=== PATIENT | male | born 1960 | race Caucasian/White ===

== ENCOUNTER 2024-05-17 22:29 | Inpatient (IN) | payer OTHER, SELFPAY ==
[2024-05-17] VITALS (11 sets, daily range): BP systolic 123–166; BP diastolic 73–101; BMI 33.3
[2024-05-17 19:14] LABS: % Basophils 0.4 % (0-2); % Eosinophils 0.9 % (0-6); % Monocytes 11.6 % (1.7-9.3); % Neutrophils 56.1 % (42.2-75.2); Absolute Eosinophils 0.1 10^3/uL (0-0.7); Absolute Lymphocytes 1.8 10^3/uL (1.2-3.4); Absolute Monocytes 0.7 10^3/uL (0.1-0.6); Absolute Neutrophils 3.2 10^3/uL (1.4-6.5); Hematocrit 43.6 % (39.0-52.0); Mean Corp Hgb Conc. 36.7 g/dL (33.0-37.0); Mean Corpuscular Hgb 30.7 pg (27.0-31.0); Mean Corpuscular Volume 83.5 fL (80.0-94.0); Mean Platelet Volume 10.7 fL (7.4-10.4); Nucleated Red Blood Cells % 0 % (-); Platelet Count 163 10^3/uL (130-400); Red Blood Cell Count 5.22 10^6/uL (4.70-6.10); White Blood Cell Count 5.7 10^3/uL (4.8-10.8)
[2024-05-17 19:30] LABS: ALT (SGPT) 29 U/L (0-50); AST (SGOT) 36 U/L (17-59); Albumin 4.6 g/dl (3.5-5.0); Alkaline Phosphatase 67 U/L (38-126); Blood Urea Nitrogen 25 mg/dl (9-20); Calcium 9.3 mg/dl (8.4-10.2); Carbon Dioxide 26 mmol/L (22-30); Chloride 102 mmol/L (98-107); Estimated Creatinine Clearance 96 ml/min; Glucose 110 mg/dl (70-99); Potassium 4.3 mmol/L (3.5-5.1); Sodium 135 mmol/L (135-145); Total Protein 7.2 g/dl (6.3-8.2); eGFR > 60.00
[2024-05-17 19:39] LABS: Troponin I 0.013 ng/ml
--- NOTE | 2024-05-17 19:48 | ED.GENMED ---
History of Present Illness
General
Chief Complaint: Cardiac Symptoms
Source: patient
Exam Limitations: none
Time Seen by Provider: 05/17/24 19:39
Nursing documentation reviewed up to this point in time: agreed with
History of Present Illness
History of Present Illness:
Patient is a 63-year-old male past medical history of CVA on baby aspirin, hypertension hyperlipidemia presents to the ER for evaluation. Patient had a stress test at 7 AM and was called at home by cardiology office stating he should come to the
ER. He reports he did have chest pressure today while the stress test was occurring however has no symptoms now.
Patient tells me he had the stress test ordered by his family doctor because he was having reflux.
Past History
Past History
ED Past Medical History: CVA (stroke right caudate February 2022), HTN, Hypercholesterolemia, Other (TIA 2020) and Other (Chronic low back pain, BPH, lumbar epidural steroid injections)
ED Past Surgical History: Orthopedic (right ankle, left elbow repairs)
Social History
Tobacco: Smoker (2 packs/day)
Alcohol: Occasional (Rare alcohol use)
Drug: Marijuana
Personal:
Living: with family
Employment: Employed
Family History
Family History: Other (mother with a stroke)
Review of Systems
Review of Systems
Allergies reviewed?: Yes
All Other Systems: ROS reviewed and negative except as documented in HPI and ROS
Constitutional: Reports no symptoms
Respiratory: Reports no symptoms
Cardiac: Reports no symptoms
ABD/GI: Reports no symptoms
Musculoskeletal: Reports no symptoms
Skin: Reports no symptoms
Neurological: Reports no symptoms
Hematologic/Lymphatic: Reports no symptoms
Psychiatric: Reports no symptoms
Phy Exam
General Physical Exam
General Presentation: no apparent distress
General age: appears stated age
General Skin: warm and dry
General Habitus: normal
General Mental: alert
General Hydration: appears well hydrated
Cardiovascular Exam
Cardiovascular Exam: regular rate/rhythm, no murmur and normal peripheral pulses
Pulmonary Exam
Pulmonary Exam: lungs clear and no respiratory distress
Neurological Exam
Neurological Exam: alert and oriented x3
Musculoskeletal Exam
Musculoskeletal Exam: full ROM
Skin Exam
Skin Exam: normal color and warm/dry
Psychiatric Exam
Psychiatric Exam: normal mood/affect
Course
Orders/Labs/Results
Orders:
Orders
05/17/24 18:32
EKG [Electrocardiogram (*1)] Urgent
Reason for Study: Chest Pain
EKG- Treatment ONCE
05/17/24 19:08
Complete Blood Count/With Diff Urgent
Comprehensive Metabolic Panel Urgent
Troponin I Urgent
05/17/24 20:11
Aspirin Chewable [Low Strength Aspirin] 324 mg PO NOW STA
05/17/24 20:12
Pantoprazole [Protonix IV] 40 mg IV NOW STA
Abnormal Lab Results
05/17/24
19:08
MPV 10.7 H fL
(7.4-10.4)
Absolute Monos (auto) 0.7 H 10^3/uL
(0.1-0.6)
Monocytes % 11.6 H %
(1.7-9.3)
BUN 25 H mg/dl
(9-20)
Glucose 110 H mg/dl
(70-99)
05/17/24 19:08
05/17/24 19:08
Vital Signs
Initial and Last Documented VS:
Initial Vital Signs
Temp Pulse Resp BP Pulse Ox
98.8 F 103 18 150/83 96
05/17/24 18:31 05/17/24 18:31 05/17/24 18:31 05/17/24 18:31 05/17/24 18:31
Last Documented Vital Signs
Temp Pulse Resp BP Pulse Ox
98.8 F 103 18 150/83 96
05/17/24 18:31 05/17/24 18:31 05/17/24 18:31 05/17/24 18:31 05/17/24 18:31
MDM/Problems Addressed
Differential Diagnosis Includes:
not limited to [place]
MDM/Problems Addressed:
Patient is a 63-year-old male with history of stroke hyperlipidemia smoker sent by cardiology office for failed stress test this morning. Patient was initially ordered stress test by family doctor for patient's complaint of reflux. Patient noted
that he did have chest pressure during the stress test but denies presently. He does have reflux issues. He presents in no acute distress negative cardiac troponin. Patient did not take his normal baby aspirin today. I spoke with cardiology DrMatthew
Garth who does recommend full baby aspirin and also to treat reflux. Will plan for cath tomorrow as stress test showed likely multivessel disease.
Chronic conditions affecting care:
Stroke smoker hyperlipidemia high blood pressure
*Pulse Oximetry
Patient hypoxic: no
*EKG
Interpreted by ED Provider?: Yes
Comparison EKG: no changes
Heart Rate: 88
Rate: normal
Rhythm: sinus
Ischemia: non-specific ST changes
*Critical Care Note
Total Time (30-74mins, 75-104mins- exclusive of procedures): Not Applicable
Patient Management
Discussion with other providers: Grain Trimmer (Dr Liang )
ED Attending Note
-
Portions of this chart may have been created with voice recognition software.� Occasional wrong word or��sound alike� substitutions may have occurred due to the inherent limitations of voice recognition software.
Discharge Plan
Departure
Patient Disposition: Admit
Date of Disposition: 05/17/24
Time of Disposition: 20:44
Admit to: Telemetry
Admit to doctor: hospitliast
Presentation/result/management discussed w/ accepting MD/DO: Hospitalist
Patient with high blood pressure during this ER visit?: Yes
Condition: Fair
Covid-19: Not Applicable
Discharge Problem:
Chest pain, Abnormal cardiovascular stress test
Prescriptions:
No Action
atorvastatin 80 MG tablet
80 mg PO DAILY
lisinopril 20 MG tablet
30 mg PO DAILY
aspirin 81 MG tablet,chewable
81 mg PO DAILY 30 Days Qty: 30 0RF
naproxen sodium [Aleve] 220 MG tablet
220 mg PO Q12H PRN (Reason: pain)
ezetimibe [Zetia] 10 MG tablet
10 mg PO DAILY
Referrals:
Fredo Durham MD [Family Provider] -
Interventions
Interventions:
*General Assessment Last Done: 05/17/24 19:09
*Neglect/Abuse Screening Last Done: 05/17/24 19:09
ED- Pulmonary Assessment Last Done: 05/17/24 19:09
ED- Cardiac Assessment Last Done: 05/17/24 19:09
Discharge Date and Time
Print Language: SRI LANKAN
[2024-05-17] MEDS: LOW STRENGTH ASPIRIN 324 MG PO (20:43)
[2024-05-17] MEDS: PROTONIX IV 40 MG IV (20:43)
--- NOTE | 2024-05-17 20:49 | HPS.HSE ---
Family Physician
-
Family Physician: Fredo Durham
Chief Complaint
-
chest pain abn stress test
History of Present Illness
63-year-old male who has been having ongoing chest pain for several weeks. He reports yesterday feeling overall sense of nausea, fatigue with cramping in his legs, arms, abdomen and a decreased appetite. 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 He describes a sensation of heartburn feeling like he has to belch along with burning sensation when this occurs he takes 2 Prilosec and within 15 minutes he
states it improves somewhat. He had a stress test at 7 AM and was called by cardiology stating it was abnormal and he should come to the ER. He reports he has been having ongoing reflux symptoms. He has past medical history of CVA 05/27/2020 on
current aspirin, HTN, HLD, active smoker.
Medical History
Past Medical History
Past Medical History: Reports Other
Additional Past Medical History:
TIA 05/27/2020 Jumana Green February 2022 on current aspirin
HTN
HLD
active smoker
Marijuana use daily
Obesity
-Back pain with peripheral neuropathy
Past Surgical History: Reports Other
Additional Past Surgical History:
tennis elbow repair bilateral
Right ankle fracture repair
Social History
Tobacco: Smoker (1.5 to 2 pack a day x 48 years)
Alcohol: Occasional (Once every 6 months)
Drug: Marijuana (Smokes and vapes)
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
Family History
Family History: Other (Mother CVA age 67, father lung CA age 67 patient has 4 brothers unsure any medical problems 2 sisters no medical problems)
Allergies / Home Medications
Allergies reflects when Allergies were last updated in [facility].
Home Medications with original date entered in [facility]
Allergy/Medication List:
Allergies
Allergy/AdvReac Type Severity Reaction Status Date / Time
No Known Allergies Allergy Verified 03/23/22 07:38
Home Medications
lisinopril 20 mg tablet 20 mg PO DAILY Blood pressure 06/05/20
aspirin 81 mg chewable tablet 81 mg PO DAILY 30 days #30 tabs 03/01/22
ezetimibe 10 mg tablet (Zetia) 10 mg PO DAILY 03/23/22
Prilosec OTC 40 mg PO DAILY PRN acid reflux 05/17/24
ciprofloxacin 2 drp RIGHT EYE QID 05/17/24
metoprolol succinate 25 mg tablet,extended release 24 hr 25 mg PO DAILY 05/17/24
pregabalin 200 mg capsule 200 mg PO DAILY 05/17/24
rosuvastatin 40 mg tablet 40 mg PO DAILY 05/17/24
tamsulosin 0.4 mg capsule (Flomax) 0.4 mg PO DAILY 05/17/24
Review of Systems
-
History Source: Patient
A 12 point ROS was completed and negative except as noted: Yes
Constitutional: Denies Fever or Chills
EENT: Denies Tearing or Sore Throat
Respiratory: Reports Other; Denies Cough or Trouble Breathing
Cardiac: Reports Chest Pain (Reported epigastric burning midsternal); Denies Diaphoresis, Palpitations or Syncope
Abdomen/GI: Reports Nausea and Other (Decreased appetite); Denies Abdominal Pain, Vomiting, Diarrhea or Constipated
: Denies Dysuria, Frequency, Flank Pain, Incontinence or Urgency
Musculoskeletal: Reports Other (Cramps to abdomen, arms, legs intermittently); Denies Joint Pain
Skin: Denies Itching or Rash
Neurological: Reports Dizzy (Occasionally when lying and looking up) and Weakness (Generalized); Denies Headache
Endocrine: Reports No Symptoms
Hematologic/Lymphatic: Reports No Symptoms
Psych: Reports Calm
Physical Exam
Vital Signs
Vital Signs
Temp Pulse Resp BP Pulse Ox
98.8 F 103 18 150/83 96
05/17/24 18:31 05/17/24 18:31 05/17/24 18:31 05/17/24 18:31 05/17/24 18:31
Physical Exam
General: Pain (Epigastric burning and sensation), Obese and Other (Generalized fatigue); No Fever or Chills
HEENT: NormoCephalic, Anicteric, PERRLA, [place] Conjunctivae, No Ptosis and Other (Right eyes slightly red status post rust removal yesterday 05/16/2024 at urgent care)
Respiratory: Clear; No Wheezes, Rales or Rhonchi
Cardiac: S1/S2 and Regular Rhythm; No Murmur, Rub, Gallop, Peripheral Edema or JVD
Breast: Deferred by me
GI: Soft, Non Tender, Non Distended, Normal Bowel Sounds and No Hepatosplenomegaly
Genito-urinary: Deferred by me
Musculoskeletal: No Clubbing, No Cyanosis and No Edema
Skin: Warm and Dry; No Rash
Neuro: AO x 3, No Motor Deficits, Nonfocal/grossly intact, Cranial Nerves Intact and No Sensory Deficits; No DTR's Intact & Symmetrical, Slurred Speech, Facial Droop or Tremors
Psych: Calm
Laboratory Results
-
05/17/24 19:08
05/17/24 19:08
Laboratory Results
Total Bilirubin 1.0 mg/dl (0.2-1.3) 05/17/24 19:08
AST 36 U/L (17-59) 05/17/24 19:08
ALT 29 U/L (0-50) 05/17/24 19:08
Alkaline Phosphatase 67 U/L (38-126) 05/17/24 19:08
Troponin I 0.013 ng/ml 05/17/24 19:08
Impression/Plan
-
Impression/plan:
Admit to IVU
#Abnormal stress test / Unstable angina
-N.p.o. after midnight
-For cath in a.m.
-Consult CBC cardiology Dr. Liang aware
-Aspirin 325 mg given in ER ,give aspirin 81 mg daily
-Continue Crestor 40 mg daily
-Continue metoprolol succinate 25 mg daily
-IV Protonix given in ER
-Given sublingual nitro with complete relief of chest pain
-Will start IV nitro drip and IV heparin drip per Dr. Liang
Verbal stress test report from today 05/17/2024 very abnormal stress test. Significant area of anterior ischemia and inferior defect likely has significant multivessel disease
EKG: NSR 80 bpm no change from February 28, 2022
2D echo 04/14/2022: EF 60 to 65%, basal inferior wall akinesis. Mild MR, trileaflet aortic valve mild aortic stenosis peak mean gradient 43-19 mmHg, trace TR
#Muscle cramping likely 2/2 to heat exposure daily poss electrolyte abn/vs mild rhabdo
-check mg level
uds
-Check CPK
#Nicotine abuse
47-year 1 and half to 2 pack a day
-Advised smoking cessation
-Nicotine patch 21 mg
#Marijuana use smokes/vapes daily
-Advised cessation
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
-Continue Cipro 2 drops 4 times daily to the eye for 5 days
#GERD
Add daily Protonix in place of Prilosec
#HTN�benign
BP 150/83
-Continue lisinopril 30 mg daily
#HLD
-Check lipid profile
-Continue Zetia 10 mg daily, atorvastatin 80 mg at bedtime
#TIA 05/2020, February 2022
-Continue AG SERVICE MANAGER aspirin, statin
MRA of neck high-grade stenosis of the right vertebral artery 2 cm proximal to the basilar artery
Brain MRI February 2022 no evidence of intracranial aneurysm or narrowing
#Chronic back pain with peripheral neuropathy
-Continue Lyrica 200 mg daily
#Obesity due to excess calorie consumption�BMI 33.2
-Affects all aspects of care
-Weight loss recommended
-Low-fat diet
#BPH
-Continue Flomax 0.4 mg daily
DVT prophylaxis
IV heparin drip
Full code
--- NOTE | 2024-05-17 21:41 | W.PN.UPDATE ---
Update Note
Progress Note Update
This note serves as an addendum to the H&P by curing press operator SHERIE Emilia MINOR
HPI
63M current smoker, vapes, daily THC use HX CVA, suspect ASCVD, HLD, HTN was sent in by [facility] card for abnormal stress test this AM.
He was advise to Card to go to ER. Stress test was indicated for ongoing chest pain.
Waxing and waning substernal lower CP - he attributed to indigestion
- no radiation
- relieved SSCP by SL NTG with reported complete resolution of CP
VS: BP 150/83, HR 105
PE: unremarkable
Data
Unremarkable CBC and CMP
NEG TPNI
EKG report
NORMAL SINUS RHYTHM
CANNOT RULE OUT INFERIOR INFARCT , AGE UNDETERMINED
ABNORMAL ECG
04/14/2022: TTE
EF 60 to 65%, basal inferior wall akinesis.
Mild MR
trileaflet aortic valve mild aortic stenosis peak mean gradient 43-19 mmHg, trace TR
ASSESSMENT & PLAN
CP attributed to GERD but USA/ ACS unless proven otherwise
Abnormal stress test
NEG TPNI
Hi risk for CAD ? obstructive
-initiatd heparin gtt and NTG gtt
- NPO and IVF
- For card cath in AM -For cath in a.m.
- cont.Aspirin 325 mg given in ER give aspirin 81 mg daily
- cont. atorvastatin 80 mg at bedtime, Zetia 10 mg daily
- CBC card consult
Benign HTN
BP 150/83
- on Lisinopril 30 mg daily
HLD
- lipid profile
- cont. Zetia 10 mg daily, atorvastatin 80 mg at bedtime
Reviewed VS:
DVT Px:
Code: Full code
IVU
[2024-05-17] MEDS: NITROSTAT (SUBLINGUAL) 0.4 MG SL (22:02)
[2024-05-17 22:15] LABS: Magnesium 1.8 mg/dl (1.6-2.3)
[2024-05-17 23:01] LABS: Creatine Phosphokinase 406 U/L (55-170)
[2024-05-17 23:14] LABS: Troponin I 0.017 ng/ml
[2024-05-17] MEDS: NITROGLYCERIN PREMIX 250 IV (23:38)
[2024-05-17] MEDS: NSS 1000 IV (23:41)
[2024-05-17] MEDS: NICODERM TRANSDERMAL 21 MG TRANSDERM (23:55)
[2024-05-18] VITALS (28 sets, daily range): BP systolic 88–165; BP diastolic 39–102; BMI 32.6
[2024-05-18] MEDS: HEPARIN 4000 UNITS IV (00:44)
[2024-05-18] MEDS: HEPARIN 25000 UNITS/250 ML IV (00:45)
[2024-05-18 01:13] LABS: Amphetamines Negative (Negative); Barbiturates Negative (Negative); Benzodiazepines Negative (Negative); Buprenorphine Negative (Negative); Cocaine Negative (Negative); Marijuana Positive (Negative); Methadone Negative (Negative); Methamphetamines Negative (Negative); Opiates Negative (Negative); Phencyclidine Negative (Negative); Tricyclic Antidepressants Negative (Negative)
--- NOTE | 2024-05-18 02:15 | PTCARENOTE ---
received pt from ED into room 2245. pt A&Ox4. ambulated from stretcher to bed w/o issue. SR on tele-monitor. lungs diminished b/l throughout on auscultation. pt NPO for CCL. heparin, nitro, and IVF infusing per orders. see worklist for complete
nursing assessment, interventions, VS, and I&Os.
[2024-05-18 06:39] LABS: APTT 54.7 Sec (23.4-35.0)
[2024-05-18 06:49] LABS: % Basophils 0.5 % (0-2); % Eosinophils 1.2 % (0-6); % Immature Granulocytes 0.2 % (0-0.5); % Lymphocytes 30.9 % (20.5-51.1); % Monocytes 10.3 % (1.7-9.3); % Neutrophils 56.9 % (42.2-75.2); Absolute Eosinophils 0.1 10^3/uL (0-0.7); Absolute Lymphocytes 1.8 10^3/uL (1.2-3.4); Absolute Monocytes 0.6 10^3/uL (0.1-0.6); Absolute Neutrophils 3.3 10^3/uL (1.4-6.5); Hematocrit 39.7 % (39.0-52.0); Hemoglobin 14.2 g/dL (13.0-18.0); Mean Corp Hgb Conc. 35.8 g/dL (33.0-37.0); Mean Corpuscular Hgb 30.5 pg (27.0-31.0); Mean Corpuscular Volume 85.2 fL (80.0-94.0); Mean Platelet Volume 10.6 fL (7.4-10.4); Nucleated Red Blood Cells % 0 % (-); Platelet Count 142 10^3/uL (130-400); Red Blood Cell Count 4.66 10^6/uL (4.70-6.10); White Blood Cell Count 5.7 10^3/uL (4.8-10.8)
[2024-05-18 06:54] LABS: Troponin I 0.015 ng/ml
--- NOTE | 2024-05-18 07:28 | W.PN.HOSP.TC ---
Today's Communication/Plan
-
NPO for cardiac cath
Assessment / Plan
Assessment / Plan
63M current smoker, vapes, daily THC use HX CVA, suspect ASCVD, HLD, HTN was sent in by [facility] card for abnormal stress test this AM.
He was advise to Card to go to ER. Stress test was indicated for ongoing chest pain.
04/14/2022: TTE
EF 60 to 65%, basal inferior wall akinesis.
Mild MR
trileaflet aortic valve mild aortic stenosis peak mean gradient 43-19 mmHg, trace TR
ASSESSMENT & PLAN
Chest Pain
GERD-like symptoms with some relief from Prilosec
Abnormal stress test
NEG TPNI
Hi risk for CAD ? obstructive
- admitted to IVU
- cont.Aspirin 325 mg given in ER give aspirin 81 mg daily
- cont. atorvastatin 80 mg at bedtime, Zetia 10 mg daily
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
- continue IV Heparin gtt
- NPO and IVF
- For card cath in AM
- CBC card consult
Benign HTN
BP 150/83
- on Lisinopril 30 mg daily
HLD
- lipid profile
- cont. Zetia 10 mg daily, atorvastatin 80 mg at bedtime
Reviewed VS:
DVT Px:
Code: Full code
IVU
Anticipated Discharge: 24 - 48 hours
Subjective/Interval History
-
Date of Service: May 18, 2024
currently chest pain free
pain happened with exertion and at rest
no new complaints this morning, woken from sleep
Objective Data
-
Labs:
Laboratory Results
05/17/24 05/17/24 05/18/24
19:08 23:30 06:13
WBC 5.7
Hgb 14.2
Hct 39.7
Plt Count 142
APTT 30.0 54.7 H
Sodium 135 Pending
Potassium 4.3 Pending
Chloride 102 Pending
Carbon Dioxide 26 Pending
BUN 25 H Pending
Creatinine 1.0 Pending
Glucose 110 H Pending
Calcium 9.3 Pending
Total Bilirubin 1.0 Pending
AST 36 Pending
ALT 29 Pending
Alkaline Phosphatase 67 Pending
05/18/24 05/18/24
07:45 12:45
WBC
Hgb
Hct
Plt Count
APTT Cancelled Pending
Sodium
Potassium
Chloride
Carbon Dioxide
BUN
Creatinine
Glucose
Calcium
Total Bilirubin
AST
ALT
Alkaline Phosphatase
Vital Signs:
Vital Signs
Temp Pulse Resp BP Pulse Ox
98.5 F 80 20 125/67 92
05/18/24 07:15 05/18/24 06:15 05/18/24 07:15 05/18/24 05:55 05/18/24 07:15
Review of Systems
-
History Source: Patient
All other systems: Reviewed and negative
Physical Exam
-
General: No Apparent Distress (awoken from sleep )
HEENT: PERRLA
Respiratory: Clear to Auscultation; Negative Wheezes
Cardiac: Regular Rhythm and S1/S2
Musculoskeletal: No Edema
Skin: Warm and Dry; Negative Rash
Neuro: Awake and Nonfocal/Grossly Intact
Psych: Calm
Data Reviewed
-
Diagnostic Radiology: Report Reviewed by me
Labs: Labs Reviewed by me
[2024-05-18 07:40] LABS: ALT (SGPT) 24 U/L (0-50); AST (SGOT) 31 U/L (17-59); Albumin 3.9 g/dl (3.5-5.0); Alkaline Phosphatase 62 U/L (38-126); Blood Urea Nitrogen 20 mg/dl (9-20); Calcium 8.7 mg/dl (8.4-10.2); Carbon Dioxide 24 mmol/L (22-30); Chloride 106 mmol/L (98-107); Estimated Creatinine Clearance > 125 ml/min; Glucose 111 mg/dl (70-99); HDL Cholesterol 48 mg/dl; LDL Cholesterol, Calculated 39 mg/dl; Potassium 4.1 mmol/L (3.5-5.1); Sodium 135 mmol/L (135-145); Total Bilirubin 0.9 mg/dl (0.2-1.3); Total Cholesterol 102 mg/dl (50-199); Total Protein 6.3 g/dl (6.3-8.2); Triglyceride 79 mg/dl (10-149); Very Low Density Lipoprotein 15 mg/dl (0-30); eGFR > 60.00
[2024-05-18] MEDS: PROTONIX 40 MG PO (08:04)
[2024-05-18] MEDS: CRESTOR 40 MG PO (08:05)
[2024-05-18] MEDS: FLOMAX 0.4 MG PO (08:05)
[2024-05-18] MEDS: LYRICA 200 MG PO (08:06)
[2024-05-18] MEDS: ZESTRIL 20 MG PO (08:06)
[2024-05-18] MEDS: ZETIA 10 MG PO (08:08)
[2024-05-18] MEDS: TOPROL XL 25 MG PO (08:09)
[2024-05-18] MEDS: LOW STRENGTH ASPIRIN 81 MG PO (08:10)
[2024-05-18] MEDS: NON-FORMULARY ITEM 2 UNIT RIGHT EYE (08:11)
--- NOTE | 2024-05-18 08:39 | CON.CAR ---
Addendum entered and electronically signed by Rupesh Platt MD 05/18/24 10:20:
Patient seen and examined in collaboration with WALLPAPER HANGER HELPER; agree with below.
-63-year-old male with medical history as outlined below, including mild aortic stenosis, peripheral vascular disease/carotid artery stenosis (severe CLAIRE and moderate LICA), previous CVA status-post ILR implantation, AAA (4.[address] in 2021),
obesity, and chronic continued cigarette use 1.5 PPD and daily marijuana vaping presenting with chest pain; found to have a significantly abnormal stress test yesterday, concerning for multivessel CAD (moderate to large anterior/anterolateral
reversible ischemia, fixed basal to distal inferior perfusion defect, visual transient ischemic dilatation (TID) with elevated TID score of 1.31.
-Cardiac catheterization will be arranged for today; continue heparin drip and nitroglycerin drip.
-Echocardiogram today to monitor for progressive aortic stenosis.
-NPO for procedure.
-Consult Vascular Surgery for PVD, carotid artery stenosis, and AAA.
-Patient was counseled at length today on the importance of smoking cessation.
Original Note:
Consultation
Consultation Request
Date/Time Consultation Requested: 05/17/24 9:15p
Date/Time Consultation Performed: 05/18/24 8:30a
Requesting Provider: ANGE [place]
Performing Provider: ANGE Underwood for Dr. Platt
Reason for Consultation: abnormal stress test
Medical History
-
Chief Complaint: chest pain
History of Present Illness:
Mr. Fay is a 63 yo male with HTN, HLD, PAD with AAA 4.[address] in 2021, b/l carotid artery disease, mild , mild MR, embolic CVA s/p [employer] ILR and current smoker 1.5 packs a day, who presents to the ER with exertional chest burning
symptoms for months. He had an outpatient stress test yesterday 05/17/24 that showed significant area of anterior ischemia and inferior defect, likely has significant multivessel disease. He is admitted to the hospitalist service and we are
consulted for abnormal stress test and exertional chest burning. Currently he is pain free on IV NTG and IV Heparin. Plan is for cardiac cath today.
Past Medical History
Past Medical History: Other (as above)
Past Surgical History: Cardiac ([employer] ILR)
Social History
Tobacco: Smoker (1.5 packs per day for 40 years)
Alcohol: None
Living: Alone
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
Family History
Family History: Reviewed & Not Pertinent
Allergies / Home Medications
Allergy/AdvReac Type Severity Reaction Status Date / Time
No Known Allergies Allergy Verified 03/23/22 07:38
�Medication �Instructions �Recorded �Confirmed �Type
lisinopril 20 mg tablet 20 mg PO DAILY Blood pressure 06/05/20 05/17/24 History
aspirin 81 mg chewable tablet 81 mg PO DAILY 30 days #30 tabs 03/01/22 05/17/24 Rx
ezetimibe 10 mg tablet (Zetia) 10 mg PO DAILY 03/23/22 05/17/24 History
Prilosec OTC 40 mg PO DAILY PRN acid reflux 05/17/24 05/17/24 History
ciprofloxacin 2 drp RIGHT EYE QID 05/17/24 05/17/24 History
metoprolol succinate 25 mg 25 mg PO DAILY 05/17/24 05/17/24 History
tablet,extended release 24 hr
pregabalin 200 mg capsule 200 mg PO DAILY 05/17/24 05/17/24 History
rosuvastatin 40 mg tablet 40 mg PO DAILY 05/17/24 05/17/24 History
tamsulosin 0.4 mg capsule (Flomax) 0.4 mg PO DAILY 05/17/24 05/17/24 History
Review of Systems
-
History Source: Patient
All other systems: Negative unless noted
Physical Exam
Vital Signs
Temp Pulse Resp BP Pulse Ox
98.5 F 110 20 153/91 92
05/18/24 07:15 05/18/24 08:09 05/18/24 07:15 05/18/24 08:09 05/18/24 07:15
Lab Results
05/18/24 06:13
05/18/24 06:13
Troponin I 0.015 ng/ml 05/18/24 06:13
Physical Exam
General: Well Developed, Well Nourished and No Apparent Distress
HEENT: Normocephalic, Anicteric and Moist Mucous Membranes
Respiratory: Clear and Non Labored Respirations
Cardiac: S1/S2, Regular Rhythm and Murmur (2/6 DONATO)
Breast: Deferred by me
GI: Soft, Non Tender, Non Distended and Normal Bowel Sounds
Rectal: Deferred by Provider
Genito-urinary: No Costovertebral Tender
Musculoskeletal: No Clubbing, No Cyanosis and No Edema
Skin: Warm and Dry
Neuro: AO x 3
Hematologic/Lymphatic: No Lymphadenopathy
Psych: Calm
Impression / Plan
-
Exertional chest burning - abnormal stress test 05/17/24.
- Significant area of anterior ischemia and inferior defect, likely has significant multivessel disease.
- plan for cardiac cath today.
- currently pain free on IV NTG and IV Heparin.
HTN - stable on Lisinopril and Toprol, continue.
- monitor.
HLD - on Crestor, continue.
- check lipid profile.
PAD - b/l carotid artery disease.
- AAA 4.[address] in 2021.
- followed by Dr. Dubois as an outpatient, last seen in 2021.
- vascular surgery consult.
CVA - embolic 2021.
- ILR in place, no Afib.
- no new neuro symptoms.
ILR - [employer] device implanted 03/2022.
- last interrogation 05/01/24 that showed 1 pause on 04/01/24 at 4:21pm 3.2 seconds, asymptomatic, no Afib seen.
- continue to monitor.
Echo 04/2022: LVEF 60-65%, basal inferior wall akinesis. Normal RV size and function. Mild MR. Calcified trileaflet aortic valve with reduced leaflet excursion. Mild ; peak/mean gradients are 43/19 mmHg, calculated MURIEL 1.6 cm2. Trace TR. Estimated
pulmonary artery pressure of 25-30 mmHg.
Data Reviewed
-
EKG: Tracing Personally Visualized and interpreted (NSR 70)
Medical Tests (Nuc Med, Echo etc): Report Reviewed by me (echo 04/2022: LVEF 60-65%, basal inferior wall akinesis. Normal RV size and function. Mild MR. Calcified trileaflet aortic valve with reduced leaflet excursion. Mild ; peak/mean gradients
are 43/19 mmHg, calculated MURIEL 1.6 cm2. Trace TR. Estimated pulmonary artery pressure of 25-30 mmHg.)
Labs: Labs Reviewed by me
Old Records: Reviewed
[2024-05-18] MEDS: NICODERM TRANSDERMAL TRANSDERM (08:52)
--- NOTE | 2024-05-18 10:34 | PTCARENOTE ---
Addendum entered by Adriel Galicia RN 05/18/24 10:58:
Correction : Iv Nitro at 15 mcgs per minute. 2.3 mls per hour.
Original Note:
Rec'd patient this AM. Pt going for heart cath this morning. Pt was kept NPO after midnight. Pt in NSR with heart rate in the 70's on the monitor. Iv heparin infusing at 1200 units per hour and Iv nitro infusing at 15 units per hour. 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
--- NOTE | 2024-05-18 10:48 | CON.VAS ---
Addendum entered and electronically signed by Aurelio Dubois MD 05/19/24 08:32:
Seen and examined with PSYCHIATRIC TECHNICIAN's. Agree with findings as noted below. He is known to me from outpatient setting but had not followed up in his last follow-up visit. Severe multilevel coronary disease now. History of known abdominal aortic aneurysm,
carotid stenosis, peripheral arterial disease. He does describe bilateral lower extremity claudication. In the buttocks and thighs mainly. Denies any abdominal pain or back pain. Denies any episodes of amaurosis, unilateral numbness or weakness,
speech dysarthria. Therefore likely asymptomatic from all his vascular issues. However would favor surveillance follow-up ultrasound imaging. If anything is of note, then may need to obtain enhanced imaging accordingly. Prior carotid imaging had
demonstrated possible greater than 70% stenosis on ultrasound. However this was found to be less severe on CT angiogram. Therefore assuming that this is stable, likely would recommend proceeding with coronary revascularization as he remains
asymptomatic. However, need to get updated carotid ultrasound imaging to confirm this prior.
Original Note:
Medical History
-
Chief Complaint: chest pain abnormal stress test
History of Present Illness:
63 yo male admitted for chest pain (for several weeks), abnormal stress test. Completed cardiac cath today that suggests multivessel disease. CT surgery to see.
Pt known to vascular service, last seen in our office 02/2022 for PAD, AAA, and carotid stenosis. Pt was to have follow up studies and office appt 02/2023 but canceled all of those.
Vascular consult today for evaluation of vascular issues. Patient seen at bedside this afternoon s/p cardiac cath via radial artery.
Patient admits to being able to walk 100 feet before having to stop for claudication pain. He gets cramping in his bilateral calves and bilateral buttock which stops him from continuing activity. Patient has no wounds. He denies abdominal pain.
Admits to chronic back pain at baseline. Denies any recent strokelike symptoms. History of CVA in 2019, no residual. Current daily smoker.
Bilateral femoral pulses +1/faint. No appreciable palpable popliteal pulses. Left DP and PT Doppler signals, right DP Doppler signal. Prior surgery/scarring at site of right PT, no pulse appreciated.
Bilateral feet are warm, dry. Patient admits to intermittent numbness in the right foot which has been going on for ' a long time.' Denies pain at rest.
Past Medical History
Past Medical History: CVA (2020, PAD), HTN, Hypercholesterolemia and Other (TIA 05/27/2020, Obesity, Back pain with peripheral neuropathy)
Past Surgical History: Other (Tennis elbow repair bilateral, Right ankle fracture repair)
Social History
Tobacco: Smoker
Alcohol: Occasional
Drug: Marijuana
Employment: Employed
Family History
Family History: Reviewed & Not Pertinent
Allergies / Home Medications
Allergy/AdvReac Type Severity Reaction Status Date / Time
No Known Allergies Allergy Verified 03/23/22 07:38
�Medication �Instructions �Recorded �Confirmed �Type
lisinopril 20 mg tablet 20 mg PO DAILY Blood pressure 06/05/20 05/17/24 History
aspirin 81 mg chewable tablet 81 mg PO DAILY 30 days #30 tabs 03/01/22 05/17/24 Rx
ezetimibe 10 mg tablet (Zetia) 10 mg PO DAILY 03/23/22 05/17/24 History
Prilosec OTC 40 mg PO DAILY PRN acid reflux 05/17/24 05/17/24 History
ciprofloxacin 2 drp RIGHT EYE QID 05/17/24 05/17/24 History
metoprolol succinate 25 mg 25 mg PO DAILY 05/17/24 05/17/24 History
tablet,extended release 24 hr
pregabalin 200 mg capsule 200 mg PO DAILY 05/17/24 05/17/24 History
rosuvastatin 40 mg tablet 40 mg PO DAILY 05/17/24 05/17/24 History
tamsulosin 0.4 mg capsule (Flomax) 0.4 mg PO DAILY 05/17/24 05/17/24 History
Review of Systems
-
History Source: Patient
All other systems: Negative unless noted
Constitutional: Reports No Symptoms
EENT: Reports No Symptoms
Respiratory: Reports No Symptoms
Cardiac: Reports Chest Pain
Vascular: Reports Leg Pain / Claudication
Abdomen/GI: Reports No Symptoms
: Reports No Symptoms
Musculoskeletal: Reports No Symptoms
Skin: Reports No Symptoms
Neurological: Reports No Symptoms
Endocrine: Reports No Symptoms
Physical Exam
Vital Signs
Temp Pulse Resp BP Pulse Ox
98.5 F 75 20 153/91 97
05/18/24 07:15 05/18/24 09:45 05/18/24 07:15 05/18/24 08:09 05/18/24 09:56
Lab Results
05/18/24 06:13
05/18/24 06:13
Troponin I 0.015 ng/ml 05/18/24 06:13
Physical Exam
General: No Apparent Distress
HEENT: Normocephalic and Atraumatic
Respiratory: Non Labored Respirations
Cardiac: Negative JVD
GI: Soft
Musculoskeletal: No Clubbing and No Cyanosis
Skin: Warm
Neuro: Awake, Alert and Oriented
Psych: Calm
Pulses: Bilateral Femoral: +1 (FAINT), Left Dorsalis Pedis: Doppler, Right Dorsalis Pedis: Doppler and Left Posterior Tibial: Doppler
Assessment / Plan
-
63 yo male admitted with abnormal stress test and chest pain
Vascular consult for known AAA and carotid disease
Plan:
-Carotid ultrasound
-Abdominal aorta ultrasound
-LE duplex/penelope/tbi
Data Reviewed
-
Labs: Labs Reviewed by me
[2024-05-18 10:50] LABS: Glycohemoglobin (HgbA1c) 6.2 % (4.0-5.6)
--- NOTE | 2024-05-18 12:10 | ITS.CL.CATH ---
Javascript Front End Developer - Catheterization
Cardiac Catheterization
Procedure Report:
CARDIAC CATHETERIZATION REPORT
Date of Procedure: 05/18/2024
Referring: Rupesh Platt M.D.
INDICATION: Unstable angina, abnormal stress test.
PROCEDURE:
1. Left heart catheterization.
2. Coronary angiography.
3. Successful IFR of the LAD.
ACCESS:
6 Malian right radial artery.
CATHETERS:
1. 5 Malian JR 4.
2. 5 Malian JL 3.5.
3. 6 Malian JL 3.5 guiding catheter.
HEMODYNAMIC DATA
Weight (kg): 108.9
AO (s/d/x, mmHg): 93/57/72
LV (s/x mmHg): 129/12
AV gradient (mean, mmHg): 34.75
LEFT VENTRICULOGRAPHY: Not performed.
CORONARY ANGIOGRAPHY
Dominance: Right.
Left Main: Brought, short, essentially cloacal vessel. There is no coronary artery disease.
LAD: Large size vessel giving rise to a single diagonal artery. There is an occlusive, 70+% lesion in the ostium of the LAD that is underappreciated angiographically but associated with catheter dampening on engagement. There is a 60% lesion in
the distal LAD.
Ramus: Normal size vessel supplying a significant portion of the lateral and anterolateral wall. There is a 70% ostial lesion. There is an 80% lesion in the mid vessel.
Circumflex: Large size, nondominant vessel giving rise to 2 obtuse marginals. OM1 is a large vessel supplying the majority of the lateral and inferolateral wall. OM 2 is a small, 1 mm vessel. There is an 90% lesion in the ostium of the
circumflex.
RCA: Normal size, dominant vessel. The vessel is chronically totally occluded in its proximal margin. The RPDA and distal RCA supplied by collaterals from the LAD.
INTERVENTION(S)
1. Successful IFR of the LAD, demonstrating progressive, severe, occlusive disease including the 60% distal LAD (iFR = 0.54) and the 70+ percent ostial LAD lesion (IFR = 0.80).
Narrative:
The decision was made to perform physiologic testing. The diagnostic catheter was removed over a wire and exchanged for a(n) 6 Malian JL 3.5 guiding catheter. The guiding catheter was advanced into the ascending aorta and seated in the left
coronary cusp. Additional heparin was given to obtain an ACT greater than 250 seconds. An iFR wire was zeroed outside of the body, then inserted into the guiding sheath. The wire was advanced and the transducer was normalized just outside of the
guiding catheter tip. The wire was then pulled back into the guide and the guide was seated in the ostium of the LAD. Catheter dampening was immediately noted. The wire was advanced into the distal LAD, beyond the 60% lesion. The JL 3.5 guide
was disengaged from the LAD with normalization of pressure waveform. Three iFR measurements were taken. The sum total of the ostial LAD and distal LAD lesions were determined to be occlusive (0.54).
The IFR wire was slowly pulled back to observe pressure gradients. There was a substantial jump in pressure after the wire was pulled back proximal to the 60% lesion (0.54-0.67). The IFR continue to slowly rise, reaching 0.80 in the proximal
vessel. When the proximal portion of the Omni wire was pulled into the ascending aorta, near the guide tip, the IFR normalized to 0.99, confirming an occlusive, ostial lesion. The catheter was reengaged in the LAD and 2 additional views were
taken, this time showing the 70% lesion in 1 Limited view. Catheter was disengaged and the wire was withdrawn. The catheter was then removed over a standard J-wire.
Closure Device: Vascular band.
Radiation (mGy): 568.63
DAP (cm2.Gy): 30.9749
Fluoroscopy time (minutes): 7.1
Sedation time (minutes): 48
CONCLUSIONS
1. Right dominant circulation with FILM REPLACEMENT ORDERER of the proximal RCA, a cloacal left main coronary artery with an occlusive ostial 70+ percent lesion (IFR = 0.80), a 60% lesion in the distal LAD (IFR = 0.54), a 70% lesion in the ostium of the circumflex
followed by an 80% lesion in the mid vessel, and a 90% lesion in the ostium of the large nondominant circumflex.
2. Normal filling pressures (LVEDP = 12 mmHg at 108.9 kg).
3. Probably moderate to severe aortic valve stenosis (mean gradient 34.75 mmHg)
RECOMMENDATIONS:
1. Expectant management after cardiac catheterization via right radial approach.
2. Limited weight bearing on the right wrist for one week.
3. Consultation with CT surgery regarding optimal revascularization strategy.
4. Echocardiogram to further evaluate aortic valve disease.
Copy to: Rupesh Platt M.D., Fredo Durham M.D.
Omar Morales DO, FACC, FACP
--- NOTE | 2024-05-18 12:33 | CONSULT.CT ---
Consultation
-
Date/Time Consultation Requested: 05/18/24 1230
Date/Time Consultation Performed: 05/18/24 1233
Requesting Provider: Andrew MENDIETA
Performing Provider: Carlos Wolfe MD
Reason for Consultation: CABG/AVR eval
Patient History
Physicians
Family Physician: Fredo Durham
Outpatient Slide Forming Machine Tender: Saulo
Inpatient Slide Forming Machine Tender: Andrew
History of Present Illness
63-year-old male with HTN, HLD, PAD with AAA of 4.3 cm on CAT scan in 2021, bilateral carotid artery disease, mild , mild MR, embolic CVA s/p [employer] ILR, and current smoker presents to [facility] emergency room with external
chest pain for several months. When he reported that to his PCP he was sent for an outpatient stress test on 05/17, that showed significant anterior ischemia and inferior defect. He was admitted for IV nitroglycerin and IV heparin and a left heart
cath today. Left heart cath revealed multivessel disease along with moderate aortic stenosis, therefore, CT surgery was consulted for surgical evaluation.
Past Medical History
Past Medical History: Angina, BPH, CAD, CVA/TIA, GERD, HTN, Hypercholesterolemia and Other
PAD
B/L carotid stenosis
Past Surgical History
Past Surgical History: Orthopedic (Ankle and elbow)
Dental History
Edentulous
Family History
Mother: Cause of (Carotid disease)
Father: Cause of (lung cancer)
Family Medical History: CAD
Social History
Alcohol: Occasional
Drug: None
Tobacco: Smoker (1 1/2 PPD x 40+ years)
Personal: Single
Living: Alone
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
Allergies
Allergy/AdvReac Type Severity Reaction Status Date / Time
No Known Allergies Allergy Verified 03/23/22 07:38
Home Medications
�Medication �Instructions �Recorded �Confirmed �Type
lisinopril 20 mg tablet 20 mg PO DAILY Blood pressure 06/05/20 05/17/24 History
aspirin 81 mg chewable tablet 81 mg PO DAILY 30 days #30 tabs 03/01/22 05/17/24 Rx
ezetimibe 10 mg tablet (Zetia) 10 mg PO DAILY 03/23/22 05/17/24 History
Prilosec OTC 40 mg PO DAILY PRN acid reflux 05/17/24 05/17/24 History
ciprofloxacin 2 drp RIGHT EYE QID 05/17/24 05/17/24 History
metoprolol succinate 25 mg 25 mg PO DAILY 05/17/24 05/17/24 History
tablet,extended release 24 hr
pregabalin 200 mg capsule 200 mg PO DAILY 05/17/24 05/17/24 History
rosuvastatin 40 mg tablet 40 mg PO DAILY 05/17/24 05/17/24 History
tamsulosin 0.4 mg capsule (Flomax) 0.4 mg PO DAILY 05/17/24 05/17/24 History
Review of Systems
-
History Source: Patient
General: Reports Fatigue
HEENT: Reports No Symptoms
Respiratory: Reports SOB, MARIN and Cough
Cardiac: Reports CAD and Known Vascular Disease
Abdomen/GI: Reports No Symptoms
: Reports No Symptoms
Musculoskeletal: Reports No Symptoms
Skin: Reports Other (varicose veins of lower extremity)
Neurological: Reports Dizzy (when looking up)
Vascular: Reports Claudication
Physical Exam
Vital Signs
Temp 98.5 F 05/18/24 07:15
Temp route: Oral 05/18/24 07:15
Pulse 75 05/18/24 09:45
Rhythm: Normal sinus rhythm 05/18/24 09:56
Resp Rate 20 05/18/24 07:15
Blood pressure 153/91 05/18/24 08:09
Blood pressure extremity used: Right upper arm 05/18/24 07:15
Position: Lying 05/18/24 07:15
MAP (cuff-Pedro Monitor) 110 05/18/24 08:08
SaO2 97 05/18/24 09:56
Oxygen Mode of Delivery Room air 05/18/24 09:56
Can the patient verbally communicate their pain? Yes 05/18/24 09:56
Actual Weight 109 kg 05/18/24 02:18
Body Mass Index (BMI) 32.6 05/18/24 02:18
Labs
05/18/24 06:13
05/18/24 06:13
APTT Cancelled 05/18/24 12:45
Hemoglobin A1c 6.2 % (4.0-5.6) H 05/18/24 06:13
Troponin I 0.015 ng/ml 05/18/24 06:13
Exam
General: Well Developed and Well Nourished
HEENT: Normocephalic
Respiratory: Clear
Cardiac: S1/S2 and Murmur
GI: Soft and Non Tender
Rectal: Deferred by Provider
Skin: Warm and Dry
Neuro: AO x 3
Extremities: Pulses (+1 doppler)
Lymph: No Lymphadenopathy
Psych: Calm
Assessment / Plan
-
63-year-old male with past medical history listed above presents with chest pain and an abnormal stress test. Patient was taken to the cardiac Deputy Sheriff Bailiff and multivessel disease was found. CT surgery was consulted for surgical evaluation
#CAD
#Aortic stenosis
-Patient's case will be discussed with attending physician. Further details regarding surgical timing intervention will be determined after attending physicians full evaluation
-Routine preoperative cardiothoracic surgery orders will be initiated.
-STS risk stratification score will be calculated after preoperative testing is complete
-Continue nitroglycerin and heparin gtt per cardiology
# PAD
- b/l carotid artery disease; will repeat ultrasound
- AAA 4.[address] in 2021.
- followed by Dr. Dubois as an outpatient, last seen in 2021.
- vascular surgery consult.
#smoker
- Continue nicotine patch
- Smoking cessation edu
Data Reviewed
-
EKG: Tracing Personally Visualized and interpreted
Deputy Sheriff Bailiff: Report Reviewed by me
Echo: Report Reviewed by me
Total Time Spent with Patient (in minutes): 50
--- NOTE | 2024-05-18 12:51 | PTCARENOTE ---
Pt returned from central lab technician w r radial R-band intact. o2 stat on finger is 98% with weak but palpable pulses. monitor shows normal sinus rhythm. Pt has no complaints of pain. IVF infusing at 164 ml's an hour x 3 hours as ordered. Vascular DIRECTOR FRAUD's at
bedside, dopler pulses only bilateral lower extremities.
[2024-05-18] MEDS: NON-FORMULARY ITEM 1 UNIT RIGHT EYE ×3 (13:01→22:20)
[2024-05-18] MEDS: NICODERM TRANSDERMAL 21 MG TRANSDERM (13:03)
--- NOTE | 2024-05-18 14:37 | PTCARENOTE ---
Echo completed at bedside.
--- NOTE | 2024-05-18 15:07 | PTCARENOTE ---
Took blood pressure on left arm 119/62 and blood pressure on right arm 141/76. Sent tiger text to notify Staci Gonzalez ([facility]).
--- NOTE | 2024-05-18 15:07 | PTCARENOTE ---
PFT's completed at bedside.
--- NOTE | 2024-05-18 16:16 | CM ---
Chart reviewed. Patient is independent of ADLS, lives alone in a [address], 0 [address], 0 DME. After surgery patient will be going home with 1 of his daughters. CM to find out which daughter. Plan is for the patient to return home with CT Transitional
RN. STEPHANIE to follow
--- NOTE | 2024-05-18 17:17 | PTCARENOTE ---
patient has been off IV nitroglycerin and IV heparin since he has been back from rn labor delivery, Fiorella Etienne SOCIAL SERVICES COUNSELOR aware by TT. patients R band if off, site D/I, no hematoma.
[2024-05-18 19:11] LABS: Hepatitis C Antibody Negative (Negative)
--- NOTE | 2024-05-18 21:35 | PTCARENOTE ---
received the patient at the change of shift. AAOx3. denies any cp/sob. SR 70s with PVCs. bp stable. R radial site CDI, weak radial pulse. reviewed plan of care with patient and verbalized understanding. NPO at midnight. nicotine patch present on
RUE. IS encouraged. ambulating in the room independently, steady on his feet. educated patient to inform RN with any changes. call kwon within reach.
[2024-05-19] VITALS (8 sets, daily range): BP systolic 117–157; BP diastolic 57–74; PULSE 63–64; O2SAT 99; BMI 32.9
[2024-05-19 03:37] LABS: % Basophils 0.4 % (0-2); % Eosinophils 2.4 % (0-6); % Immature Granulocytes 0.2 % (0-0.5); % Lymphocytes 43.1 % (20.5-51.1); % Monocytes 12.2 % (1.7-9.3); % Neutrophils 41.7 % (42.2-75.2); Absolute Eosinophils 0.1 10^3/uL (0-0.7); Absolute Lymphocytes 2.2 10^3/uL (1.2-3.4); Absolute Monocytes 0.6 10^3/uL (0.1-0.6); Absolute Neutrophils 2.1 10^3/uL (1.4-6.5); Hematocrit 39.5 % (39.0-52.0); Hemoglobin 14.1 g/dL (13.0-18.0); Mean Corp Hgb Conc. 35.7 g/dL (33.0-37.0); Mean Corpuscular Hgb 30.9 pg (27.0-31.0); Mean Corpuscular Volume 86.6 fL (80.0-94.0); Mean Platelet Volume 10.3 fL (7.4-10.4); Nucleated Red Blood Cells % 0 % (-); Platelet Count 135 10^3/uL (130-400); Red Blood Cell Count 4.56 10^6/uL (4.70-6.10); Red Cell Dist. Width 13.1 % (11.5-14.5); White Blood Cell Count 5.1 10^3/uL (4.8-10.8)
[2024-05-19 03:48] LABS: APTT 31.7 Sec (23.4-35.0); INR 1.05; PT 13.7 Sec (11.4-14.6)
[2024-05-19 03:57] LABS: ALT (SGPT) 23 U/L (0-50); AST (SGOT) 29 U/L (17-59); Albumin 3.9 g/dl (3.5-5.0); Alkaline Phosphatase 61 U/L (38-126); Blood Urea Nitrogen 18 mg/dl (9-20); Calcium 9.1 mg/dl (8.4-10.2); Carbon Dioxide 27 mmol/L (22-30); Chloride 107 mmol/L (98-107); Direct Bilirubin 0.1 mg/dl (0.0-0.4); Estimated Creatinine Clearance 119 ml/min; Glucose 101 mg/dl (70-99); Potassium 4.5 mmol/L (3.5-5.1); Sodium 139 mmol/L (135-145); Total Bilirubin 0.8 mg/dl (0.2-1.3); Total Protein 6.3 g/dl (6.3-8.2); eGFR > 60.00
--- NOTE | 2024-05-19 07:56 | W.PN.HOSP.TC ---
Today's Communication/Plan
-
see plan
Assessment / Plan
Assessment / Plan
63M current smoker, vapes, daily THC use HX CVA, suspect ASCVD, HLD, HTN was sent in by [facility] card for abnormal stress test; now s/p cardiac cath showing moderate and multivessel disease. CTS consulted.
04/14/2022: TTE
EF 60 to 65%, basal inferior wall akinesis.
Mild MR
trileaflet aortic valve mild aortic stenosis peak mean gradient 43-19 mmHg, trace TR
Cardiac Cath 05/18/24
CONCLUSIONS
1. Right dominant circulation with BUSINESS DEVELOPMENT EXECUTIVE of the proximal RCA, a cloacal left main coronary artery with an occlusive ostial 70+ percent lesion (IFR = 0.80), a 60% lesion in the distal LAD (IFR = 0.54), a 70% lesion in the ostium of the circumflex
followed by an 80% lesion in the mid vessel, and a 90% lesion in the ostium of the large nondominant circumflex.
2. Normal filling pressures (LVEDP = 12 mmHg at 108.9 kg).
3. Probably moderate to severe aortic valve stenosis (mean gradient 34.75 mmHg)
ASSESSMENT & PLAN
Chest Pain
GERD-like symptoms with some relief from Prilosec
Abnormal stress test
NEG TPNI
Hi risk for CAD ? obstructive
- admitted to IVU
- continue daily asa/statin/metoprolol
- IV Heparin gtt off
- CTS consult appreciated
- cardiology consult appreciated
Bilateral carotid artery stenosis
AAA
- vascular surgery consulted
Benign HTN
BP 150/83
- on Lisinopril 20 mg daily
HLD
- lipid profile
- cont. Zetia 10 mg daily, atorvastatin 80 mg at bedtime
Reviewed VS:
DVT Px:
Code: Full code
IVU
Anticipated Discharge: > 48 hours
Subjective/Interval History
-
Date of Service: May 19, 2024
denies chest pain
no new questions
no shortness of breath
Objective Data
-
Labs:
Laboratory Results
05/19/24
03:07
WBC 5.1
Hgb 14.1
Hct 39.5
Plt Count 135
PT 13.7
INR 1.05
APTT 31.7
Sodium 139
Potassium 4.5
Chloride 107
Carbon Dioxide 27
BUN 18
Creatinine 0.8
Glucose 101 H
Calcium 9.1
Total Bilirubin 0.8
AST 29
ALT 23
Alkaline Phosphatase 61
Vital Signs:
Vital Signs
Temp Pulse Resp BP Pulse Ox
98.3 F 63 18 142/73 96
05/19/24 03:14 05/19/24 05:45 05/19/24 03:14 05/19/24 03:04 05/19/24 03:14
I&O
05/18/24 05/19/24 05/20/24
06:59 06:59 06:59
Intake Total 742 / 742
Balance 742 / 742
Review of Systems
-
History Source: Patient
All other systems: Reviewed and negative
Physical Exam
-
General: No Apparent Distress (awoken from sleep )
HEENT: PERRLA
Respiratory: Clear to Auscultation; Negative Wheezes
Cardiac: Regular Rhythm and S1/S2
Musculoskeletal: No Edema
Skin: Warm and Dry; Negative Rash
Neuro: Awake and Nonfocal/Grossly Intact
Psych: Calm
Data Reviewed
-
Diagnostic Radiology: Report Reviewed by me
Labs: Labs Reviewed by me
[2024-05-19 09:35] LABS: Glucose - Point of Care 107 mg/dl (70-99)
[2024-05-19] MEDS: ZETIA 10 MG PO (09:35)
[2024-05-19] MEDS: NOVOLOG FLEXPEN-MODERATE RESISTANCE SC ×2 (09:35→18:11)
[2024-05-19] MEDS: CRESTOR 40 MG PO (09:36)
[2024-05-19] MEDS: LYRICA 200 MG PO (09:36)
[2024-05-19] MEDS: FLOMAX 0.4 MG PO (09:36)
[2024-05-19] MEDS: PROTONIX 40 MG PO (09:36)
[2024-05-19] MEDS: LOW STRENGTH ASPIRIN 81 MG PO (09:37)
[2024-05-19] MEDS: ZESTRIL 20 MG PO (09:37)
[2024-05-19] MEDS: TOPROL XL 25 MG PO (09:37)
[2024-05-19] MEDS: NICODERM TRANSDERMAL 21 MG TRANSDERM (09:38)
[2024-05-19] MEDS: NON-FORMULARY ITEM 1 UNIT RIGHT EYE ×3 (09:38→22:09)
[2024-05-19 09:54] LABS: ACT-LR - POC > 397 Seconds (116-155)
--- NOTE | 2024-05-19 10:05 | PTOTSP ---
Patient independent with all transfers and ambulation. No skilled PT needs at this time but may warrant reconsult if plan is for cardiac surgery. Please reconsult if needed.
[2024-05-19 11:33] LABS: Glucose - Point of Care 192 mg/dl (70-99)
[2024-05-19] MEDS: NOVOLOG FLEXPEN-MODERATE RESISTANCE 1 UNITS SC (13:07)
[2024-05-19] MEDS: NON-FORMULARY ITEM 2 UNIT RIGHT EYE (13:08)
--- NOTE | 2024-05-19 13:23 | W.PN.UPDATE ---
Update Note
Progress Note Update
CARDIAC SURGERY ATTENDING:
It was my pleasure to evaluate Mr. Jaxon Fay. I have reviewed his history and available imaging. I believe he will benefit from surgical coronary revascularization and aortic valve replacement. I anticipate DARY to LAD, left radial artery
to OM, greater saphenous vein to RI, and potential greater saphenous vein to PDA/RCA (will require intraoperative assessment). Concurrent AVR will be performed with a biologic valve.
I had a long conversation at bedside with Mr. Fay and his daughter. We discussed his pathology, the proposed operative interventions, the associated periprocedural risks (including, but not limited to, , stroke, MO, arrhythmia, PPM
requirement, PNA, ROZINA/F, bleeding, and infection), the expected in-hospital postprocedural course, and expected outpatient recovery. All questions were answered to the best of my abilities. We also discussed the various valve replacement types
that the natural history of structural valve deterioration; herequested a biologic AVR and was agreeable to proceed. The patient is undergoing vascular workup for his history of PVD and carotid disease. I will discuss this with my vascular surgery
colleagues prior to proceeding to the operating room. I have tentatively scheduled the patient for surgery this coming 05/24/2024.
Thank you for the opportunity to participate in the care of this kind patient.
Please call with any questions or concerns.
Juan Jose Briggs MD
[phone]
--- NOTE | 2024-05-19 14:11 | W.PN.CD ---
Today's Communication / Plan
-
- Cardiac catheterization yesterday revealed multivessel coronary artery disease.
- Evaluated by CT Surgery; plan is for CABG and AVR next week Wednesday.
- Echocardiogram yesterday revealed an LVEF of 55-60%, but moderate to severe aortic stenosis was present.
- Vascular Surgery consulted for input regarding bilateral carotid artery stenosis and AAA.
Impression / Plan
-
Exertional chest burning - abnormal stress test 05/17/24:
- Significant area of anterior ischemia and inferior defect, likely has significant multivessel disease.
- Cardiac catheterization yesterday revealed multivessel coronary artery disease.
- Evaluated by CT Surgery; plan is for CABG and AVR next week Wednesday.
- Continue aspirin, high-dose rosuvastatin, Zetia, and Toprol-XL.
Moderate to severe aortic stenosis:
-Echocardiogram yesterday revealed an LVEF of 55-60%, but moderate to severe aortic stenosis was present.
-CABG/AVR pending as above.
HTN:
-Controlled on current doses of lisinopril and metoprolol succinate.
HLD:
-Total cholesterol 102, LDL 39, HDL 48, VLDL 15, triglycerides 79.
-Continue rosuvastatin 40 mg daily and Zetia.
PAD - b/l carotid artery disease and AAA:
- AAA 4.[address] in 2021.
- Vascular Surgery consulted for input regarding bilateral carotid artery stenosis and AAA.
CVA - embolic 2021.
- ILR in place, no Afib.
- no new neuro symptoms.
ILR - [employer] device implanted 03/2022.
- last interrogation 05/01/24 that showed 1 pause on 04/01/24 at 4:21pm 3.2 seconds, asymptomatic, no Afib seen.
- continue to monitor.
Echo 04/2022: LVEF 60-65%, basal inferior wall akinesis. Normal RV size and function. Mild MR. Calcified trileaflet aortic valve with reduced leaflet excursion. Mild ; peak/mean gradients are 43/19 mmHg, calculated MURIEL 1.6 cm2. Trace TR. Estimated
pulmonary artery pressure of 25-30 mmHg.
Physical Exam
Vital Signs/Labs
Vital Signs
Temp Pulse Resp BP Pulse Ox
98.3 F 66 18 123/66 97
05/19/24 12:30 05/19/24 12:15 05/19/24 12:30 05/19/24 11:27 05/19/24 12:30
05/18/24 05/19/24 05/20/24
06:59 06:59 06:59
Actual Weight 109 kg 109.8 kg
05/19/24 03:07
05/19/24 03:07
PT 13.7 Sec (11.4-14.6) 05/19/24 03:07
INR 1.05 05/19/24 03:07
APTT 31.7 Sec (23.4-35.0) 05/19/24 03:07
Magnesium 1.8 mg/dl (1.6-2.3) 05/17/24 19:08
Triglycerides 79 mg/dl (10-149) 05/18/24 06:13
LDL Cholesterol, Calc 39 mg/dl 05/18/24 06:13
VLDL Cholesterol, Calc 15 mg/dl (0-30) 05/18/24 06:13
HDL Cholesterol 48 mg/dl 05/18/24 06:13
LAB Results
05/17/24 05/17/24 05/18/24
19:08 22:40 06:13
Troponin I 0.013 0.017 D 0.015
Physical Exam
Constitutional: No acute distress and Comfortable
EENT: Anicteric
Cardiovascular: Rhythm & rate is regular, Pedal edema is absent, Systolic murmur present (2/) and S1S2 is normal
Respiratory: Respiratory effort normal and Lungs clear to auscul.
Neuro/Psych: AO x 3
Other: Skin (Warm, dry, intact)
Data Reviewed
-
Date of Service: May 19, 2024
EKG: Tracing Personally Visualized and interpreted (Telemetry: Sinus rhythm)
Echo: Report Reviewed by me (Moderate to severe AAS)
Medical Tests (PFT, Pathology etc): Report Reviewed by me (Cardiac catheterization: Multivessel CAD), Discussed with Physician (CT Surgery), Discussed with Nurse and Discussed with Patient
Labs: Labs Reviewed by me
--- NOTE | 2024-05-19 15:35 | CM ---
Chart reviewed. Teaching done on preoperative and postoperative instructions and restrictions, along with showering guidelines. Gave patient Cardiac Surgery Book. Patient is independent of ADLS, lives alone in a [address], 0 [address]ALL, 0 DME, still
working. Patient is unsure if he will go home or to his daughters. Plan is for the patient to go home vs daughters home with CT Transitional RN. CM to follow
--- NOTE | 2024-05-19 17:02 | W.PN.UPDATE ---
Update Note
Progress Note Update
I reviewed his noninvasive imaging studies. Lower extremity imaging demonstrates right-sided YUMIKO 0.82 slightly improved from prior 0.65. Left side 0.79 from 0.91 YUMIKO. He likely does have some multilevel disease. Aortic ultrasound demonstrates
stable unchanged 4.3 cm fusiform infrarenal abdominal aortic aneurysm. Carotid duplex imaging demonstrates per report greater than 70% bilateral carotid stenoses. Left side may have progressed compared to prior study, right side stable.
Therefore, plan from a vascular standpoint as follows:
1. Carotid stenosis -I reviewed carotid imaging current ultrasound as well as prior, as well as prior CT angiogram. The left carotid velocities have progressed moderately from 241 cm/s prior to 485 cm/s currently. The right side, is stable (prior
was 304 cm/s, currently 292 cm/s). In addition, based on the prior right-sided carotid velocities, I had obtained CT angiogram in 2021. At that time right-sided velocities were the same as they are now as noted (actually slightly increased). In
the CT angiogram had shown that the ultrasound assessment seem to be over calling the degree of stenosis as it was read as 50% stenosis bilateral internal carotid artery stenosis. Therefore based on this, I think the right side likely has not
significantly changed. The left side may have increased, and is likely definitively greater than 70% at this time. However, he is asymptomatic to the carotid arteries currently. He has multilevel coronary disease which has brought him here.
Would recommend revascularization of his coronaries and treatment of his valve at this time. He certainly would be at slightly increased risk of stroke compared to the rest of the population, but I do not know that this warrants carotid
revascularization prior. He can follow-up in close follow-up in the office 4 to 6 weeks following completion of his cardiac surgery.
2. Aortic aneurysm�stable 4.3 cm infrarenal abdominal aortic aneurysm. Will follow-up with 6 months interval ultrasound to keep an eye on it.
3. PAD�he does have claudication in the lower extremities. However no limb threatening ischemia. No urgent indication for any revascularization. When I see him back in the office we can discuss further management of his claudication.
Please do not hesitate to call me with any questions.
--- NOTE | 2024-05-19 17:28 | PTCARENOTE ---
Pt is SR on the monitor, HR in 60s, VSS. No complaints from pt at this time. Pt ambulated through the halls, tolerated well. Pt educated on plan of care, Pt verbalized understanding. Call doyle w/in reach.
[2024-05-19 18:06] LABS: Glucose - Point of Care 112 mg/dl (70-99)
[2024-05-19 22:06] LABS: Glucose - Point of Care 97 mg/dl (70-99)
[2024-05-20 02:30] VITALS: BP 124/62
[2024-05-20 03:13] LABS: % Basophils 0.7 % (0-2); % Eosinophils 1.9 % (0-6); % Immature Granulocytes 0.2 % (0-0.5); % Lymphocytes 39.3 % (20.5-51.1); % Monocytes 12.2 % (1.7-9.3); % Neutrophils 45.7 % (42.2-75.2); Absolute Eosinophils 0.1 10^3/uL (0-0.7); Absolute Lymphocytes 2.3 10^3/uL (1.2-3.4); Absolute Monocytes 0.7 10^3/uL (0.1-0.6); Absolute Neutrophils 2.7 10^3/uL (1.4-6.5); Hematocrit 39.2 % (39.0-52.0); Hemoglobin 14.1 g/dL (13.0-18.0); Mean Corpuscular Hgb 30.7 pg (27.0-31.0); Mean Corpuscular Volume 85.4 fL (80.0-94.0); Mean Platelet Volume 10.6 fL (7.4-10.4); Nucleated Red Blood Cells % 0 % (-); Platelet Count 132 10^3/uL (130-400); Red Blood Cell Count 4.59 10^6/uL (4.70-6.10); Red Cell Dist. Width 12.9 % (11.5-14.5); White Blood Cell Count 5.8 10^3/uL (4.8-10.8)
[2024-05-20 08:01] LABS: Glucose - Point of Care 121 mg/dl (70-99)
[2024-05-20] MEDS: NOVOLOG FLEXPEN-MODERATE RESISTANCE SC ×3 (08:01→17:11)
[2024-05-20] MEDS: LYRICA 200 MG PO (08:02)
[2024-05-20] MEDS: LOW STRENGTH ASPIRIN 81 MG PO (08:02)
[2024-05-20] MEDS: ZESTRIL 20 MG PO (08:02)
[2024-05-20] MEDS: ZETIA 10 MG PO (08:02)
[2024-05-20] MEDS: CRESTOR 40 MG PO (08:02)
[2024-05-20] MEDS: FLOMAX 0.4 MG PO (08:02)
--- NOTE | 2024-05-20 08:04 | W.PN.HOSP.TC ---
Today's Communication/Plan
-
see plan
Assessment / Plan
Assessment / Plan
63M current smoker, vapes, daily THC use HX CVA, suspect ASCVD, HLD, HTN was sent in by [facility] card for abnormal stress test; now s/p cardiac cath showing moderate and multivessel disease. CTS consulted.
04/14/2022: TTE
EF 60 to 65%, basal inferior wall akinesis.
Mild MR
trileaflet aortic valve mild aortic stenosis peak mean gradient 43-19 mmHg, trace TR
Cardiac Cath 05/18/24
CONCLUSIONS
1. Right dominant circulation with BACK END ARCHITECT of the proximal RCA, a cloacal left main coronary artery with an occlusive ostial 70+ percent lesion (IFR = 0.80), a 60% lesion in the distal LAD (IFR = 0.54), a 70% lesion in the ostium of the circumflex
followed by an 80% lesion in the mid vessel, and a 90% lesion in the ostium of the large nondominant circumflex.
2. Normal filling pressures (LVEDP = 12 mmHg at 108.9 kg).
3. Probably moderate to severe aortic valve stenosis (mean gradient 34.75 mmHg)
ASSESSMENT & PLAN
Chest Pain
GERD-like symptoms with some relief from Prilosec
Abnormal stress test
NEG TPNI
Hi risk for CAD ? obstructive
- admitted to IVU
- continue daily asa/statin/metoprolol
- IV Heparin gtt off
- CTS consult appreciated
- cardiology consult appreciated
- plan for OR Thursday 05/24
Bilateral carotid artery stenosis
AAA
- vascular surgery consult appreciated
Benign HTN
BP 150/83
- on Lisinopril 20 mg daily
HLD
- lipid profile
- cont. Zetia 10 mg daily, atorvastatin 80 mg at bedtime
DVT Px:
Code: Full code
IVU
Anticipated Discharge: > 48 hours
Subjective/Interval History
-
Date of Service: May 20, 2024
no new complaints
no chest pain
Objective Data
-
Labs:
Laboratory Results
05/20/24
02:37
WBC 5.8
Hgb 14.1
Hct 39.2
Plt Count 132
Vital Signs:
Vital Signs
Temp Pulse Resp BP Pulse Ox
98.3 F 56 16 124/62 97
05/20/24 02:32 05/20/24 06:00 05/20/24 02:32 05/20/24 02:30 05/20/24 02:32
I&O
05/19/24 05/20/24 05/21/24
06:59 06:59 06:59
Intake Total 742 / 742 960 / 960
Balance 742 / 742 960 / 960
Review of Systems
-
History Source: Patient
All other systems: Reviewed and negative
Physical Exam
-
General: No Apparent Distress
HEENT: PERRLA
Respiratory: Clear to Auscultation; Negative Wheezes
Cardiac: Regular Rhythm and S1/S2
Musculoskeletal: No Edema
Skin: Warm and Dry; Negative Rash
Neuro: Awake and Nonfocal/Grossly Intact
Psych: Calm
Data Reviewed
-
Diagnostic Radiology: Report Reviewed by me
Labs: Labs Reviewed by me
[2024-05-20 08:05] VITALS: BP 117/77
[2024-05-20] MEDS: TOPROL XL 25 MG PO (08:05)
[2024-05-20] MEDS: NON-FORMULARY ITEM 1 UNIT RIGHT EYE ×4 (08:05→22:06)
[2024-05-20] MEDS: PROTONIX 40 MG PO (08:05)
[2024-05-20] MEDS: NICODERM TRANSDERMAL 21 MG TRANSDERM (08:11)
[2024-05-20 11:26] VITALS: BP 115/64
[2024-05-20 11:56] LABS: Glucose - Point of Care 120 mg/dl (70-99)
--- NOTE | 2024-05-20 12:06 | W.PN.CD ---
Today's Communication / Plan
-
- Multivessel coronary artery disease on cardiac catheterization.
- Plan is for CABG and AVR next week Wednesday per CT Surgery.
- Vascular Surgery consulted-- appreciate input; patient is relatively stable in terms of his bilateral carotid artery stenosis, AAA, and PVD.
Impression / Plan
-
Exertional chest burning - abnormal stress test 05/17/24:
- Significant area of anterior ischemia and inferior defect, likely has significant multivessel disease.
- Multivessel coronary artery disease on cardiac catheterization.
- Plan is for CABG and AVR next week Wednesday per CT Surgery.
- Continue aspirin, high-dose rosuvastatin, Zetia, and Toprol-XL.
Moderate to severe aortic stenosis:
-Echocardiogram this admit revealed an LVEF of 55-60%, but moderate to severe aortic stenosis was present.
-CABG/AVR pending as above.
HTN:
-Controlled on current doses of lisinopril and metoprolol succinate.
HLD:
-Total cholesterol 102, LDL 39, HDL 48, VLDL 15, triglycerides 79.
-Continue rosuvastatin 40 mg daily and Zetia.
PAD - b/l carotid artery disease and AAA:
- AAA 4.[address] in 2021.
- Vascular Surgery consulted-- appreciate input; patient is relatively stable in terms of his bilateral carotid artery stenosis, AAA, and PVD.
CVA - embolic 2021.
- ILR in place, no Afib.
- no new neuro symptoms.
ILR - [employer] device implanted 03/2022.
- last interrogation 05/01/24 that showed 1 pause on 04/01/24 at 4:21pm 3.2 seconds, asymptomatic, no Afib seen.
- continue to monitor.
Echo 04/2022: LVEF 60-65%, basal inferior wall akinesis. Normal RV size and function. Mild MR. Calcified trileaflet aortic valve with reduced leaflet excursion. Mild ; peak/mean gradients are 43/19 mmHg, calculated MURIEL 1.6 cm2. Trace TR. Estimated
pulmonary artery pressure of 25-30 mmHg.
Physical Exam
Vital Signs/Labs
Vital Signs
Temp Pulse Resp BP Pulse Ox
98.6 F 61 16 115/64 97
05/20/24 11:30 05/20/24 11:26 05/20/24 11:30 05/20/24 11:26 05/20/24 11:30
05/19/24 05/20/24 05/21/24
06:59 06:59 06:59
Actual Weight 109.8 kg
05/20/24 02:37
05/19/24 03:07
PT 13.7 Sec (11.4-14.6) 05/19/24 03:07
INR 1.05 05/19/24 03:07
APTT 31.7 Sec (23.4-35.0) 05/19/24 03:07
Magnesium 1.8 mg/dl (1.6-2.3) 05/17/24 19:08
Triglycerides 79 mg/dl (10-149) 05/18/24 06:13
LDL Cholesterol, Calc 39 mg/dl 05/18/24 06:13
VLDL Cholesterol, Calc 15 mg/dl (0-30) 05/18/24 06:13
HDL Cholesterol 48 mg/dl 05/18/24 06:13
LAB Results
05/17/24 05/17/24 05/18/24
19:08 22:40 06:13
Troponin I 0.013 0.017 D 0.015
Physical Exam
Constitutional: No acute distress and Comfortable
EENT: Anicteric and Moist mucous membranes
Cardiovascular: Rhythm & rate is regular, Pedal edema is absent, Systolic murmur absent and S1S2 is normal
Respiratory: Respiratory effort normal and Lungs clear to auscul.
GI: Soft
Neuro/Psych: AO x 3
Other: Skin (warm, dry, inact)
Data Reviewed
-
Date of Service: May 20, 2024
EKG: Tracing Personally Visualized and interpreted (Sinus rhythm)
Labs: Labs Reviewed by me
[2024-05-20 15:45] VITALS: BP 118/68
[2024-05-20 17:12] LABS: Glucose - Point of Care 107 mg/dl (70-99)
--- NOTE | 2024-05-20 18:14 | PTCARENOTE ---
pt continues to be sb on the monitor, hr in the the 50s, vss. pt offers no complaints at this time. pt ambulating through the halls and tolerating well. pt educated on plan of care and pt verbalized understanding. call kwon within reach.
--- NOTE | 2024-05-20 18:18 | W.PN.UPDATE ---
Update Note
Progress Note Update
Procedure Type:�CABG + AVR
PERIOPERATIVE OUTCOME ESTIMATE %
Operative Mortality 2.39%
Morbidity & Mortality 13.2%
Stroke 2.38%
Renal Failure 1.9%
Reoperation 4.32%
Prolonged Ventilation 8.14%
Deep Sternal Wound Infection 0.301%
Long Hospital Stay (>14 days) 8.53%
Short Hospital Stay (<6 days)* 32.8%
Clinical Summary
Planned Surgery: CABG + AVR, Urgent, First cardiovascular surgery
Demographics: 63 year old, White, male, 109kg, 183cm, BMI: 32.6 kg/m�
Lab Values: Creatinine: 0.7 mg/dL, Hematocrit: 39.7%, WBC Count: 5.7 10�/�L, Platelet Count: 758004 cells/�L
Substance Abuse: Current smoker, Alcohol use: <=1 drink/week
Risk Factors / Comorbidities: Hypertension, Family Hx of CAD
Pulmonary RF: Mild CLD
Vascular RF: Cerebrovascular Disease: CVA > 30 days, Peripheral Artery Disease
Cardiac Status: Ejection Fraction = 55%
Coronary Artery Disease: 3 vessels diseased, Unstable Angina, AR: > 21 Days
Valve Disease: Aortic Stenosis, Trivial/Trace MR, Trivial/Trace TR
[2024-05-20 19:21] VITALS: BP 107/58
[2024-05-20 21:39] LABS: Glucose - Point of Care 108 mg/dl (70-99)
[2024-05-20 22:52] VITALS: BP 144/67
--- NOTE | 2024-05-21 01:26 | PTCARENOTE ---
Denied any complaints of pain or discomfort earlier when questioned. SB-SR on the monitor, 50's-60's. Sleeping at present.
[2024-05-21 04:47] VITALS: BP 147/71
[2024-05-21 07:30] VITALS: BP 148/66
--- NOTE | 2024-05-21 07:51 | W.PN.HOSP.TC ---
Today's Communication/Plan
-
OR Wednesday
Assessment / Plan
Assessment / Plan
63M current smoker, vapes, daily THC use HX CVA, suspect ASCVD, HLD, HTN was sent in by [facility] card for abnormal stress test; now s/p cardiac cath showing moderate and multivessel disease. CTS consulted.
04/14/2022: TTE
EF 60 to 65%, basal inferior wall akinesis.
Mild MR
trileaflet aortic valve mild aortic stenosis peak mean gradient 43-19 mmHg, trace TR
Cardiac Cath 05/18/24
CONCLUSIONS
1. Right dominant circulation with PORT DRIER of the proximal RCA, a cloacal left main coronary artery with an occlusive ostial 70+ percent lesion (IFR = 0.80), a 60% lesion in the distal LAD (IFR = 0.54), a 70% lesion in the ostium of the circumflex
followed by an 80% lesion in the mid vessel, and a 90% lesion in the ostium of the large nondominant circumflex.
2. Normal filling pressures (LVEDP = 12 mmHg at 108.9 kg).
3. Probably moderate to severe aortic valve stenosis (mean gradient 34.75 mmHg)
ASSESSMENT & PLAN
multivessel Coronary Artery Disease
Moderate to Severe
- admitted to IVU
- s/p cardiac cath 05/18 with finding MVD, also moderate to severe
- continue daily asa/statin/metoprolol/Lisinopril
- IV Heparin gtt off
- CTS consult appreciated
- cardiology consult appreciated
- plan for OR Thursday 05/24
Bilateral carotid artery stenosis
AAA
- vascular surgery consult appreciated. asymptomatic carotid artery stenosis; stable AAA - will follow up outpatient
Benign HTN
BP 150/83
- on Lisinopril 20 mg daily
HLD
- cont. Zetia 10 mg daily, atorvastatin 80 mg at bedtime
DVT Px:
Code: Full code
IVU
Anticipated Discharge: > 48 hours
Subjective/Interval History
-
Date of Service: May 21, 2024
feeling well
no chest pain
Objective Data
-
Vital Signs:
Vital Signs
Temp Pulse Resp BP Pulse Ox
97.8 F 50 20 147/71 95
05/21/24 07:27 05/21/24 05:00 05/21/24 07:27 05/21/24 04:47 05/21/24 07:27
I&O
05/20/24 05/21/24 05/22/24
06:59 06:59 06:59
Intake Total 960 / 960 960 / 960
Balance 960 / 960 960 / 960
Review of Systems
-
History Source: Patient
All other systems: Reviewed and negative
Physical Exam
-
General: No Apparent Distress
HEENT: PERRLA
Respiratory: Clear to Auscultation; Negative Wheezes
Cardiac: Regular Rhythm and S1/S2
Musculoskeletal: No Edema
Skin: Warm and Dry; Negative Rash
Neuro: Awake and Nonfocal/Grossly Intact
Psych: Calm
Data Reviewed
-
Diagnostic Radiology: Report Reviewed by me
Labs: Labs Reviewed by me
[2024-05-21 08:20] LABS: Glucose - Point of Care 97 mg/dl (70-99)
[2024-05-21] MEDS: ZESTRIL 20 MG PO (08:22)
[2024-05-21] MEDS: PROTONIX 40 MG PO (08:22)
[2024-05-21] MEDS: TOPROL XL 25 MG PO (08:22)
[2024-05-21] MEDS: LYRICA 200 MG PO (08:22)
[2024-05-21] MEDS: NICODERM TRANSDERMAL 21 MG TRANSDERM (08:22)
[2024-05-21] MEDS: LOW STRENGTH ASPIRIN 81 MG PO (08:23)
[2024-05-21] MEDS: FLOMAX 0.4 MG PO (08:23)
[2024-05-21] MEDS: CRESTOR 40 MG PO (08:23)
[2024-05-21] MEDS: ZETIA 10 MG PO (08:23)
[2024-05-21] MEDS: NON-FORMULARY ITEM 1 UNIT RIGHT EYE ×4 (08:23→20:22)
[2024-05-21] MEDS: NOVOLOG FLEXPEN-MODERATE RESISTANCE SC ×3 (08:29→17:16)
[2024-05-21] MEDS: COLACE 100 MG PO ×2 (09:21→20:21)
[2024-05-21 11:16] VITALS: BP 113/62
[2024-05-21 12:44] LABS: Glucose - Point of Care 106 mg/dl (70-99)
[2024-05-21 14:43] VITALS: BP 102/48
--- NOTE | 2024-05-21 16:50 | PTCARENOTE ---
pt continues to be sr on the monitor, hr in the 60s, vss. pt offers no complaints at this time. pt has been ambulating through the halls throughout the day and tolerating well. right radial site is WOLF. pt educated on plan of care and pt verbalized
understanding. call kwon within reach.
[2024-05-21 17:18] LABS: Glucose - Point of Care 98 mg/dl (70-99)
[2024-05-21 18:17] VITALS: BP 105/54
--- NOTE | 2024-05-21 21:41 | PTCARENOTE ---
received patient at the change of shift. AAOx3. ambulating in the halls. denies any cp/sob. SB-SR on tele. HR 50s-70s. bp stable. patient states having 'very small' BM. Colace given. answered all questions. call kwon within reach.
[2024-05-21 22:12] VITALS: BP 108/54
[2024-05-21 22:14] LABS: Glucose - Point of Care 150 mg/dl (70-99)
[2024-05-22 02:31] VITALS: BP 134/68
--- NOTE | 2024-05-22 07:11 | W.PN.CD ---
Today's Communication / Plan
-
Lactulose 30 cc this AM
Impression / Plan
-
CAD-
-abnormal stress test 05/17/24 with anterior ischemia
- Multivessel coronary artery disease on cardiac catheterization.
- Plan is for CABG and AVR Wednesday per CT Surgery.
- Continue aspirin, high-dose rosuvastatin, Zetia, and Toprol-XL.
Moderate to severe aortic stenosis:
-Echocardiogram this admit revealed an LVEF of 55-60%, but moderate to severe aortic stenosis was present.
-CABG/AVR pending as above.
HTN:
-Controlled on current doses of lisinopril and metoprolol succinate.
HLD:
-Total cholesterol 102, LDL 39, HDL 48, VLDL 15, triglycerides 79.
-Continue rosuvastatin 40 mg daily and Zetia.
PAD - b/l carotid artery disease and AAA:
- AAA 4.[address] in 2021.
- Vascular surgery does not feel carotid revasc needed preop. Current USG doesn't correlate well with prior CTA and MRA both suggesting less severe disease. AAA will be followed with serial imaging
-Also noted severe R SFA stenosis
CVA -suspected embolic 2021.
- ILR in place, no Afib.
- no new neuro symptoms.
ILR - [employer] device implanted 03/2022.
- last interrogation 05/01/24 that showed 1 pause on 04/01/24 at 4:21pm 3.2 seconds, asymptomatic, no Afib seen.
- continue to monitor.
Constipation: Will give lactulose 30cc this am. This should do it
.
Physical Exam
Vital Signs/Labs
Vital Signs
Temp Pulse Resp BP Pulse Ox
98.0 F 51 16 134/68 98
05/22/24 02:36 05/22/24 02:31 05/22/24 02:36 05/22/24 02:31 05/22/24 02:36
05/20/24 02:37
05/19/24 03:07
PT 13.7 Sec (11.4-14.6) 05/19/24 03:07
INR 1.05 05/19/24 03:07
APTT 31.7 Sec (23.4-35.0) 05/19/24 03:07
Magnesium 1.8 mg/dl (1.6-2.3) 05/17/24 19:08
Triglycerides 79 mg/dl (10-149) 05/18/24 06:13
LDL Cholesterol, Calc 39 mg/dl 05/18/24 06:13
VLDL Cholesterol, Calc 15 mg/dl (0-30) 05/18/24 06:13
HDL Cholesterol 48 mg/dl 05/18/24 06:13
Physical Exam
Constitutional: No acute distress and Comfortable
EENT: Anicteric
Cardiovascular: Rhythm & rate is regular and Systolic murmur present (3/6 murmur radiating to neck)
Respiratory: Respiratory effort normal and Lungs clear to auscul.
GI: Normal bowel sounds
Neuro/Psych: AO x 3 and Motor deficits absent
Data Reviewed
-
Date of Service: May 22, 2024
[2024-05-22 07:47] LABS: Glucose - Point of Care 102 mg/dl (70-99)
[2024-05-22] MEDS: NOVOLOG FLEXPEN-MODERATE RESISTANCE SC ×3 (07:59→18:04)
--- NOTE | 2024-05-22 08:00 | PTCARENOTE ---
resumed care of patient from prev rn. walking rounds completed. AAOx3. ambulating in the halls. SB-SR on tele. HR 50s-70s. no reports of chest pain. VSS. colace and lactulose given for constipation. reported BM. for CVOR wednesday. will continue to
monitor.
[2024-05-22] MEDS: DUPHALAC/CHRONULAC 20 GRAMS PO (08:24)
[2024-05-22] MEDS: ZETIA 10 MG PO (08:25)
[2024-05-22] MEDS: NICODERM TRANSDERMAL 21 MG TRANSDERM (08:25)
[2024-05-22] MEDS: CRESTOR 40 MG PO (08:25)
[2024-05-22] MEDS: LYRICA 200 MG PO (08:25)
[2024-05-22] MEDS: FLOMAX 0.4 MG PO (08:26)
[2024-05-22] MEDS: LOW STRENGTH ASPIRIN 81 MG PO (08:26)
[2024-05-22] MEDS: PROTONIX 40 MG PO (08:26)
[2024-05-22] MEDS: COLACE 100 MG PO ×2 (08:26→19:57)
[2024-05-22 08:27] VITALS: BP 155/66
[2024-05-22] MEDS: TOPROL XL 25 MG PO (08:27)
[2024-05-22] MEDS: ZESTRIL 20 MG PO (08:27)
[2024-05-22] MEDS: NON-FORMULARY ITEM 1 UNIT RIGHT EYE ×4 (08:28→22:13)
--- NOTE | 2024-05-22 12:35 | CM ---
Chart reviewed. Patient is waiting for a CABG/AVR 05/24. Patient is independent of ADLS, lives alone in a [address], 0 [address], 0 DME. Plan is for the patient to return home vs [facility] with [facility] Transitional RN. CM to follow up on plan after
surgery. CM to follow
[2024-05-22 12:44] LABS: Glucose - Point of Care 98 mg/dl (70-99)
[2024-05-22 12:45] VITALS: BP 138/66
--- NOTE | 2024-05-22 14:10 | W.PN.HOSP.TC ---
Today's Communication/Plan
-
GDMT
monitor BP/HR
Cards recs
CTS following
Assessment / Plan
Assessment / Plan
General: No Apparent Distress
HEENT: atraumatic. supple.
Respiratory: Clear to Auscultation; Negative Wheezes
Cardiac: Regular Rhythm and S1/S2
Musculoskeletal: No Edema
Skin: Warm and Dry; Negative Rash
Neuro: Awake and Nonfocal/Grossly Intact
Psych: Calm
63M current smoker, vapes, daily THC use HX CVA, suspect ASCVD, HLD, HTN was sent in by [facility] card for abnormal stress test; now s/p cardiac cath showing moderate and multivessel disease. CTS consulted.
04/14/2022: TTE
EF 60 to 65%, basal inferior wall akinesis.
Mild MR
trileaflet aortic valve mild aortic stenosis peak mean gradient 43-19 mmHg, trace TR
Cardiac Cath 05/18/24
CONCLUSIONS
1. Right dominant circulation with EXTRUDER OPERATOR HORIZONTAL of the proximal RCA, a cloacal left main coronary artery with an occlusive ostial 70+ percent lesion (IFR = 0.80), a 60% lesion in the distal LAD (IFR = 0.54), a 70% lesion in the ostium of the circumflex
followed by an 80% lesion in the mid vessel, and a 90% lesion in the ostium of the large nondominant circumflex.
2. Normal filling pressures (LVEDP = 12 mmHg at 108.9 kg).
3. Probably moderate to severe aortic valve stenosis (mean gradient 34.75 mmHg)
ASSESSMENT & PLAN
multivessel Coronary Artery Disease
Moderate to Severe
- admitted to IVU
- s/p cardiac cath 05/18 with finding MVD, also moderate to severe
- continue daily asa/statin/metoprolol/Lisinopril
- IV Heparin gtt off
- CTS consult appreciated
- cardiology consult appreciated
- plan for OR Thursday 05/24
Bilateral carotid artery stenosis
AAA
- vascular surgery consult appreciated. asymptomatic carotid artery stenosis; stable AAA - will follow up outpatient
Benign HTN
BP 138/66
- on Lisinopril 20 mg daily and toprol
HLD
- cont. Zetia 10 mg daily, atorvastatin 80 mg at bedtime
BPH-Cont flomax
Hx of CVA
-cont asa
DVT Px: lovenox
Code: Full code
Anticipated Discharge: > 48 hours
Subjective/Interval History
-
Date of Service: May 22, 2024
resting in bed
HR in 58-60
no chest pain at rest
Objective Data
-
Vital Signs:
Vital Signs
Temp Pulse Resp BP Pulse Ox
97.9 F 68 16 138/66 97
05/22/24 12:09 05/22/24 13:00 05/22/24 02:36 05/22/24 12:45 05/22/24 12:09
I&O
05/21/24 05/22/24 05/23/24
06:59 06:59 06:59
Intake Total 960 / 960 730 / 730 120 / 120
Balance 960 / 960 730 / 730 120 / 120
[2024-05-22 15:34] VITALS: BP 96/50
[2024-05-22] MEDS: LOVENOX 40 MG SC (17:16)
[2024-05-22 17:22] LABS: Glucose - Point of Care 91 mg/dl (70-99)
[2024-05-22 18:42] VITALS: BP 129/67
--- NOTE | 2024-05-22 19:37 | PTCARENOTE ---
Pt. received at change of shift. No complaints at this time. VS WNL. Continuing to monitor pt.
[2024-05-22 22:15] VITALS: BP 134/69
[2024-05-22 22:28] LABS: Glucose - Point of Care 112 mg/dl (70-99)
[2024-05-23 02:54] VITALS: BP 133/56
[2024-05-23 07:40] VITALS: BP 145/78
[2024-05-23 07:46] LABS: Glucose - Point of Care 102 mg/dl (70-99)
[2024-05-23] MEDS: NOVOLOG FLEXPEN-MODERATE RESISTANCE SC ×3 (08:43→17:46)
[2024-05-23] MEDS: NICODERM TRANSDERMAL 21 MG TRANSDERM (08:53)
[2024-05-23] MEDS: CRESTOR 40 MG PO (08:54)
[2024-05-23] MEDS: PROTONIX 40 MG PO (08:56)
[2024-05-23] MEDS: ZETIA 10 MG PO (08:56)
[2024-05-23] MEDS: FLOMAX 0.4 MG PO (08:56)
[2024-05-23] MEDS: LYRICA 200 MG PO (08:57)
[2024-05-23] MEDS: COLACE 100 MG PO ×2 (08:57→21:02)
[2024-05-23] MEDS: TOPROL XL 25 MG PO (08:58)
[2024-05-23] MEDS: LOW STRENGTH ASPIRIN 81 MG PO (08:58)
[2024-05-23] MEDS: NORVASC 5 MG PO (08:58)
[2024-05-23] MEDS: NON-FORMULARY ITEM 1 UNIT RIGHT EYE ×4 (08:59→21:02)
--- NOTE | 2024-05-23 09:38 | W.PN.CD ---
Today's Communication / Plan
-
- Plan is for CABG and AVR tomorrow per CT Surgery.
- Continue aspirin, high-dose rosuvastatin, Zetia, and Toprol-XL.
-NPO after MN.
Impression / Plan
-
CAD-
-abnormal stress test 05/17/24 with anterior ischemia
- Multivessel coronary artery disease on cardiac catheterization.
- Plan is for CABG and AVR tomorrow per CT Surgery.
- Continue aspirin, high-dose rosuvastatin, Zetia, and Toprol-XL.
Moderate to severe aortic stenosis:
-Echocardiogram this admit revealed an LVEF of 55-60%, but moderate to severe aortic stenosis was present.
-CABG/AVR pending as above.
HTN:
-Stable; continue current doses of lisinopril and metoprolol succinate.
HLD:
-Total cholesterol 102, LDL 39, HDL 48, VLDL 15, triglycerides 79.
-Continue rosuvastatin 40 mg daily and Zetia.
PAD - b/l carotid artery disease and AAA:
- AAA 4.[address] in 2021.
- Vascular surgery does not feel carotid revasc needed preop. Current USG doesn't correlate well with prior CTA and MRA both suggesting less severe disease. AAA will be followed with serial imaging
-Also noted severe R SFA stenosis
CVA -suspected embolic 2021.
- ILR in place, no Afib.
- no new neuro symptoms.
ILR - [employer] device implanted 03/2022.
- last interrogation 05/01/24 that showed 1 pause on 04/01/24 at 4:21pm 3.2 seconds, asymptomatic, no Afib seen.
- continue to monitor.
Physical Exam
Vital Signs/Labs
Vital Signs
Temp Pulse Resp BP Pulse Ox
97.5 F 57 20 145/78 97
05/23/24 07:42 05/23/24 08:58 05/23/24 07:42 05/23/24 08:58 05/23/24 07:42
05/20/24 02:37
05/19/24 03:07
PT 13.7 Sec (11.4-14.6) 05/19/24 03:07
INR 1.05 05/19/24 03:07
APTT 31.7 Sec (23.4-35.0) 05/19/24 03:07
Magnesium 1.8 mg/dl (1.6-2.3) 05/17/24 19:08
Triglycerides 79 mg/dl (10-149) 05/18/24 06:13
LDL Cholesterol, Calc 39 mg/dl 05/18/24 06:13
VLDL Cholesterol, Calc 15 mg/dl (0-30) 05/18/24 06:13
HDL Cholesterol 48 mg/dl 05/18/24 06:13
Physical Exam
Constitutional: No acute distress and Comfortable
EENT: Anicteric
Cardiovascular: Rhythm & rate is regular, Pedal edema is absent, Systolic murmur present (3/6) and S1S2 is normal
Respiratory: Respiratory effort normal and Lungs clear to auscul.
GI: Soft
Neuro/Psych: AO x 3
Other: Skin (Warm, dry, intact)
Data Reviewed
-
Date of Service: May 23, 2024
EKG: Tracing Personally Visualized and interpreted (Telemetry: Sinus rhythm)
Medical Tests (PFT, Pathology etc): Discussed with Patient
Labs: Labs Reviewed by me
--- NOTE | 2024-05-23 10:15 | W.PN.HOSP.TC ---
Today's Communication/Plan
-
OR tomm
GDMT
Cards/CTS recs
Assessment / Plan
Assessment / Plan
General: No Apparent Distress
HEENT: atraumatic. supple.
Respiratory: Clear to Auscultation; Negative Wheezes
Cardiac: Regular Rhythm and S1/S2
Musculoskeletal: No Edema
Skin: Warm and Dry; Negative Rash
Neuro: Awake and Nonfocal/Grossly Intact
Psych: Calm
63M current smoker, vapes, daily THC use HX CVA, suspect ASCVD, HLD, HTN was sent in by [facility] card for abnormal stress test; now s/p cardiac cath showing moderate and multivessel disease. CTS consulted.
04/14/2022: TTE
EF 60 to 65%, basal inferior wall akinesis.
Mild MR
trileaflet aortic valve mild aortic stenosis peak mean gradient 43-19 mmHg, trace TR
Cardiac Cath 05/18/24
CONCLUSIONS
1. Right dominant circulation with EMERGENCY SPILL RESPONSE TECHNICIAN of the proximal RCA, a cloacal left main coronary artery with an occlusive ostial 70+ percent lesion (IFR = 0.80), a 60% lesion in the distal LAD (IFR = 0.54), a 70% lesion in the ostium of the circumflex
followed by an 80% lesion in the mid vessel, and a 90% lesion in the ostium of the large nondominant circumflex.
2. Normal filling pressures (LVEDP = 12 mmHg at 108.9 kg).
3. Probably moderate to severe aortic valve stenosis (mean gradient 34.75 mmHg)
ASSESSMENT & PLAN
multivessel Coronary Artery Disease
Moderate to Severe
- s/p cardiac cath 05/18 with finding MVD, also moderate to severe
- continue daily asa/statin/metoprolol/Lisinopril
- IV Heparin gtt off
- CTS consult appreciated
- cardiology consult appreciated
- plan for OR Thursday 05/24. NPO.
Bilateral carotid artery stenosis
AAA
- vascular surgery consult appreciated. asymptomatic carotid artery stenosis; stable AAA - will follow up outpatient
Benign HTN
- on Lisinopril 20 mg daily and toprol
HLD
- cont. Zetia 10 mg daily, atorvastatin 80 mg at bedtime
BPH-Cont flomax
Hx of CVA
-cont asa
DVT Px: lovenox
Code: Full code
Anticipated Discharge: > 48 hours
Subjective/Interval History
-
Date of Service: May 23, 2024
no chest pain
Objective Data
-
Vital Signs:
Vital Signs
Temp Pulse Resp BP Pulse Ox
97.5 F 57 20 145/78 97
05/23/24 07:42 05/23/24 08:58 05/23/24 07:42 05/23/24 08:58 05/23/24 07:42
I&O
05/22/24 05/23/24 05/24/24
06:59 06:59 06:59
Intake Total 730 / 730 220 / 220
Balance 730 / 730 220 / 220
--- NOTE | 2024-05-23 10:32 | CM ---
Chart reviewed. Patient is independent of ADLS, lives alone in a 1 STH, 0 MARSHALL, 0 DME. Patient is going for a AVR/CABG 05/24/24. Plan is for the patient to return home vs daughters house with CT Transitional RN. CM to follow
[2024-05-23 11:06] VITALS: BP 121/69
--- NOTE | 2024-05-23 11:17 | PTCARENOTE ---
resumed care of patient from previous RN. SB HR 50s. pulses palpable. no edema. appetite good. BRP. for CVOR in am. will continue to monitor.
[2024-05-23 12:29] LABS: Glucose - Point of Care 123 mg/dl (70-99)
[2024-05-23 15:02] VITALS: BP 147/86
--- NOTE | 2024-05-23 16:11 | PTCARENOTE ---
Patient received as transfer from IVU in anticipation of CVOR in am. Patient AAO x 3, denies pain. NSR via cm, SaO2 @ 98% on RA. R wrist procedural site stable. Patient updated to plan of care for the evening, in agreement - teary regarding
impending procedure, emotional support provided. See work list for full assessment and interventions performed.
[2024-05-23 17:37] LABS: Glucose - Point of Care 106 mg/dl (70-99)
[2024-05-23] MEDS: LOVENOX SC (18:08)
--- NOTE | 2024-05-23 20:00 | PTCARENOTE ---
assumed care of pt from previous RN. pt A&Ox4, resting in bed at time of assessment. SR on tele-monitor. POX 98% on RA. abd s/n, +BS. pt NPO at 0000 for CVOR in AM. pt voiding no issues. PIV intact. plan of care discussed w/ pt, pt in agreement. pt
independent in room, call kwon in reach.
[2024-05-23 20:06] VITALS: BP 158/94
--- NOTE | 2024-05-23 21:30 | PTCARENOTE ---
pt clipped for CVOR. reviewed by CV CORDELL Leon. 1st CHG shower completed.
[2024-05-23] MEDS: XANAX 0.25 MG PO (22:56)
[2024-05-23 22:57] VITALS: BP 154/76
[2024-05-24] VITALS (9 sets, daily range): BP systolic 86–155; BP diastolic 44–85; PULSE 65; BMI 32.5
[2024-05-24 00:31] LABS: ALT (SGPT) 23 U/L (0-50); AST (SGOT) 24 U/L (17-59); Albumin 3.9 g/dl (3.5-5.0); Alkaline Phosphatase 61 U/L (38-126); Blood Urea Nitrogen 19 mg/dl (9-20); Calcium 9.2 mg/dl (8.4-10.2); Carbon Dioxide 30 mmol/L (22-30); Chloride 102 mmol/L (98-107); Estimated Creatinine Clearance 96 ml/min; Glucose 121 mg/dl (70-99); Potassium 4.2 mmol/L (3.5-5.1); Sodium 136 mmol/L (135-145); Total Bilirubin 0.6 mg/dl (0.2-1.3); Total Protein 6.4 g/dl (6.3-8.2); eGFR > 60.00
[2024-05-24 00:46] LABS: % Basophils 0.7 % (0-2); % Eosinophils 3.2 % (0-6); % Immature Granulocytes 0.4 % (0-0.5); % Lymphocytes 37.6 % (20.5-51.1); % Monocytes 11.8 % (1.7-9.3); % Neutrophils 46.3 % (42.2-75.2); Absolute Eosinophils 0.2 10^3/uL (0-0.7); Absolute Monocytes 0.6 10^3/uL (0.1-0.6); Absolute Neutrophils 2.5 10^3/uL (1.4-6.5); Hematocrit 39.7 % (39.0-52.0); Hemoglobin 14.3 g/dL (13.0-18.0); Mean Corpuscular Hgb 30.6 pg (27.0-31.0); Mean Platelet Volume 10.6 fL (7.4-10.4); Nucleated Red Blood Cells % 0 % (-); Platelet Count 137 10^3/uL (130-400); Red Blood Cell Count 4.67 10^6/uL (4.70-6.10); Red Cell Dist. Width 12.6 % (11.5-14.5); White Blood Cell Count 5.4 10^3/uL (4.8-10.8)
--- NOTE | 2024-05-24 04:53 | DOWNTIME ---
There was a LookUP Client Continuous Pillowcase Cutter Downtime on 05/24/2024 from 0100 to 05/24/2024 at 0255. Downtime documentation of patient's care, including medication administrations, has been reconciled in the electronic record per guidelines. Refer to the
patient's paper chart under the miscellaneous tab to see printed paper medication records and downtime forms.
[2024-05-24] MEDS: PROTONIX 40 MG PO (05:30)
[2024-05-24] MEDS: MAGNESIUM OXIDE 500 MG PO (05:30)
[2024-05-24] MEDS: LOPRESSOR 25 MG PO (05:30)
[2024-05-24] MEDS: BACTROBAN 2% OINTMENT 1 APPLIC NASAL ×2 (05:30→19:05)
--- NOTE | 2024-05-24 05:42 | PTCARENOTE ---
2nd shower completed. wiped w/ CHG wipes. pre-op meds given. pre-op education provided. all questions answered. vibration engineer to CVOR.
[2024-05-24 07:35] LABS: ACT+ - POC 98 Seconds (82-134)
[2024-05-24 07:57] LABS: Urine Albumin Negative (Neg - Trace); Urine Bilirubin Negative (Negative); Urine Character Clear (Clear); Urine Color Yellow; Urine Glucose Negative (Negative); Urine Ketone Negative (Negative); Urine Leukocyte Negative (Negative); Urine Nitrite Negative (Negative); Urine Occult Blood Negative (Negative); Urine Urobilinogen Negative (Neg - 1+)
[2024-05-24] MEDS: NOVOLOG FLEXPEN-MODERATE RESISTANCE SC ×3 (09:10→17:36)
[2024-05-24] MEDS: COLACE PO (09:10)
[2024-05-24] MEDS: CRESTOR PO (09:11)
[2024-05-24] MEDS: FLOMAX PO (09:11)
[2024-05-24] MEDS: LOW STRENGTH ASPIRIN PO (09:12)
[2024-05-24] MEDS: LYRICA PO (09:12)
[2024-05-24] MEDS: NICODERM TRANSDERMAL TRANSDERM (09:12)
[2024-05-24] MEDS: NON-FORMULARY ITEM RIGHT EYE ×2 (09:12→12:36)
[2024-05-24] MEDS: NORVASC PO (09:12)
[2024-05-24] MEDS: ZETIA PO (09:13)
--- NOTE | 2024-05-24 09:30 | W.PN.UPDATE ---
Update Note
Progress Note Update
63-year-old male presented to [facility] emergency room 05/17/24 for evaluation of abnormal stress test performed earlier in the day. Patient was called at home by cardiology office stating he should come to the ER. Patient was admitted for
IV nitroglycerin and IV heparin and underwent left heart cath which confirmed multivessel disease. TTE on 05/18 reported moderate to severe aortic stenosis. Carotid US reported >70% ICA stenosis and vascular team consulted and cleared patient (@
higher stroke risk) for cardiac surgery.
PMH: HTN, HLD, PAD, infrarenal AAA of 4.3 cm on CAT scan in 2021, B/L carotid artery disease, mild , mild MR, embolic CVA s/p [employer] ILR, current tobacco abuse, BPH
IV fluids: 3000
U.O.:� 1800
Blood:� 1 plt, 1 PRBC
Wires:� V-wires
Gtts: Dobutamine @ 3; Cardizem @ 5, Precedex @ 0.5, Insulin
Operative events: 2 pump ruins to address venous bleeding
�
NEURO: sedated on Precedex, pupils +2mm B/L
RESP: #8OT @22cm> 500/60%/14/5. Lungs clear B/L. 2 mediastinal (35cc on arrival) and R/L pleural (75cc on arrival) chest tubes to -20cm suction. Sanguineous drainage
CV: RRR +S1, S2, no S3, no�rub, no murmur. Dermabond to median sternotomy. RIJ w/Mclean locked @ 47cm. PA 36/30; CVP 12; C.O 4.67/CI 2.03
ABD: round, soft, no BS
EXT: no edema, +2/4 DP pulses B/L, no femoral bruit,LUE and RLE ANN-MARIE wraps intact; right radial A-line intact
: Tamayo with punch color urine
�
A/P: POD #0 s/p AVR # 25mm Inspiris, CABG x 3 DARY-LAD; SVG-RI; radial-OM
SUSY: EF�60-65% with AV mean gradient 6mmHg
- wean and extubate
- will need instruction regarding antibiotic prophylaxis for dental and invasive procedures
- extra dose Vancomycin 1G x 1
# CAD
- will require ASA/Plavix, high intensity statin + Zetia, and beta ruben +/- Farxiga
- IV Cardizem>transition to oral Ca+ ruben for radial patency x 3 months
# NSVT
- Amio bolus/infusion added
- check lytes
# PAD (severe R SFA stenosis)/ carotid stenosis (>70% B/L)/infrarenal AAA (4.3cm)
- no limb threatening ischemia per vascular surgery
- follow up outpatinet with vascular surgery (Dr. Dubois) in 6 weeks
- serial US in 6 months to follow AAA
# Tobacco abuse
- need immediate and technician terminal and repeater tobacco cessation
# Hx embolic CVA
- keep BP slightly higher immediately post-op
- continue ASA/statin/Zetia
�
# acute surgical blood loss anemia-expected
- trend CBC
�
# BPH
- resume Flomax as BP permits
# Prediabetes (A1C 6.2)
- insulin infusion x 24h
- may need SSI after infusion discontinued
�
[2024-05-24 10:35] LABS: B.E. - POC 0.3 mmol/L; Glucose - POC 114 mg/dl (65-99); HCO3 - POC 27 mmol/L (21-29); Hematocrit - POC 45 % PCV (42-52); Hemodilution- POC No; Hemoglobin Calculated - POC 15.3; Ionized Calcium - POC 1.18 mmol/L (1.12-1.27); O2 Saturation %Calculated-POC 99.8 5 (92-96); PCO2 - POC 48 mmHg (35-45); PO2 - POC 245 mmHg (80-100); POC Comment PRE; Potassium - POC 4.1 mmol/L (3.6-5.0); Sodium - POC 140 mmol/L (135-145); pH - POC 7.36 (7.35-7.45)
[2024-05-24 11:08] LABS: B.E. - POC 3.2 mmol/L; Glucose - POC 155 mg/dl (65-99); HCO3 - POC 28 mmol/L (21-29); Hematocrit - POC 31 % PCV (42-52); Hemodilution- POC Yes; Hemoglobin Calculated - POC 10.6; Ionized Calcium - POC 0.99 mmol/L (1.12-1.27); PCO2 - POC 42 mmHg (35-45); PO2 - POC 401 mmHg (80-100); POC Comment CPB; Potassium - POC 5.8 mmol/L (3.6-5.0); Sodium - POC 137 mmol/L (135-145); pH - POC 7.43 (7.35-7.45)
--- NOTE | 2024-05-24 11:19 | W.PN.CD ---
Today's Communication / Plan
-
CABG + SAVR this morning.
Impression / Plan
-
Impression/Plan: 63 y/o male vasculopath admitted with PAD, AAA, CHRIS and moderate/severe admitted with unstable angina and a markedly abnormal stress test, found to have multivessel CAD.
#CAD
-Chronic, unstable.
-Abnormal stress test 05/17/24 with anterior ischemia and TID.
-Multivessel coronary artery disease on cardiac catheterization.
-CABG + SAVR today.
-Anticipate routine post operative managment.
-Wean pressors/inotropes. Keep MAP > 65 mmHg, CI > 2.2 L/min/m2.
-Wean vent to extubate.
-Restart rosuvastatin when taking PO.
-Chest tube/pain management per CT surgery.
#Moderate to severe aortic stenosis
-Chronic, stable.
-Echocardiogram this admit revealed an LVEF of 55-60%, but moderate to severe aortic stenosis was present.
-CABG/AVR pending as above.
#HTN
-Chronic, stable
-Adjust medications post op.
#HLD
-Chronic, stable.
-Total cholesterol = 102, LDL = 39, HDL = 48, VLDL = 15, triglycerides = 79.
-Continue rosuvastatin 40 mg daily and ezetimibe 10 mg daily.
#PAD/CHRIS
-Chronic, stable to mildly progressive.
-Bilateral >70% carotid artery stenosis, likely overcalled on Duplex compared to CTA. Vascular surgery does not feel carotid revasc needed preop.
-AAA 4.[address] in 2021. AAA will be followed with serial imaging
-Also noted severe R SFA stenosis with claudication. This will be managed outpatient.
#Hx of CVA
-Suspected embolic, 2021.
-ILR in place, no Afib.
-No new neuro symptoms.
Subjective/Interval History:
In OR this morning.
DATA:
Abdominal US, 05/19/2024:
IMPRESSION: Fusiform infrarenal abdominal aortic aneurysm measuring up to 4.3 cm in diameter, no significant interval increase in size as compared with CT of July 2022.
Carotid Duplex, 05/19/2024:
IMPRESSION: By velocity criteria, there is greater than 70% stenosis of the bilateral internal carotid arteries. Peak systolic velocity slightly decreased on the right as compared with prior, 292 cm/s versus 304 cm/s prior. Peak systolic velocity
increased on the right as compared with prior, 485 cm/s as compared with 241 cm/s prior.
YUMIKO, 05/19/2024:
IMPRESSION:
1. Right ankle brachial index of 0.82 is improved as compared with 0.65 prior. Toe brachial index of 0.43, slightly improved from 0.34 prior. Common femoral waveform is multiphasic, but somewhat dampened suggesting probable inflow disease. There
is a moderate stenosis of the profunda femoral artery. There is a severe stenosis of the mid right superficial femoral artery.
2. Left ankle-brachial index of 0.79 is slightly decreased from 0.91 prior. Within the mild claudication range. The toe brachial index of 0.44 is without significant change from 0.45 prior. No signs of inflow disease on the left. There is a
moderate profunda femoral stenosis. Waveforms remain multiphasic to the popliteal, with dampened Doppler waveforms at the ankle consistent with the presence of infrapopliteal small vessel disease.
Cardiac Catheterization, 05/18/2024:
CONCLUSIONS
1. Right dominant circulation with WOOD TANK ERECTOR of the proximal RCA, a cloacal left main coronary artery with an occlusive ostial 70+ percent lesion (IFR = 0.80), a 60% lesion in the distal LAD (IFR = 0.54), a 70% lesion in the ostium of the circumflex
followed by an 80% lesion in the mid vessel, and a 90% lesion in the ostium of the large nondominant circumflex.
2. Normal filling pressures (LVEDP = 12 mmHg at 108.9 kg).
3. Probably moderate to severe aortic valve stenosis (mean gradient 34.75 mmHg).
TTE, 05/18/2024:
CONCLUSIONS
1. Normal LV size with inferobasal akinesis and inferior hypokinesis. LVEF 55-60%.
2. MAC.
3. Moderate to severe with mean gradient 27mm Hg, MURIEL 0.9cm2.
4. Compared with study, has progressed.
Physical Exam
Vital Signs/Labs
Vital Signs
Temp Pulse Resp BP Pulse Ox
36.6 C 65 16 155/85 99
05/24/24 05:38 05/24/24 06:00 05/24/24 05:38 05/24/24 05:30 05/24/24 05:38
05/22/24 05/23/24 05/24/24
11:59 11:59 11:59
Actual Weight 108.6 kg
05/24/24 00:10
05/24/24 00:10
PT 13.7 Sec (11.4-14.6) 05/19/24 03:07
INR 1.05 05/19/24 03:07
APTT 31.7 Sec (23.4-35.0) 05/19/24 03:07
Magnesium 1.8 mg/dl (1.6-2.3) 05/17/24 19:08
Triglycerides 79 mg/dl (10-149) 05/18/24 06:13
LDL Cholesterol, Calc 39 mg/dl 05/18/24 06:13
VLDL Cholesterol, Calc 15 mg/dl (0-30) 05/18/24 06:13
HDL Cholesterol 48 mg/dl 05/18/24 06:13
Physical Exam
Deferred at Dr. Briggs's request.
Data Reviewed
-
Date of Service: May 24, 2024
Medical Decision Making: Reviewed Test Results, Test Interpretation and Review of Case with other Provider
EKG: Tracing Personally Visualized and interpreted and Report Reviewed by me
Echo: Tracing Personally Visualized and interpreted and Report Reviewed by me
X-Ray/CT/US/MRI/NUC/PET: Image Personally Visualized and interpreted and Report Reviewed by me
Medical Tests (PFT, Pathology etc): Image Personally Visualized and interpreted and Report Reviewed by me
Labs: Labs Reviewed by me
Old Records: Reviewed
[2024-05-24 11:24] LABS: ACT+ - POC 856 Seconds (82-134)
--- NOTE | 2024-05-24 11:30 | CM ---
Pt. in OR today for planned CT Surgery.
Reviewed initial assessment. Pt. resides alone in a 1 story home without any steps to enter. Pt. is indep. prior to admission w/ ADLs, mobility without any assisted device.
Anticipated DC plan is for home with CT Transitional Care RN.
CM to follow.
[2024-05-24 11:41] LABS: B.E. - POC 1.5 mmol/L; Glucose - POC 169 mg/dl (65-99); HCO3 - POC 26 mmol/L (21-29); Hematocrit - POC 33 % PCV (42-52); Hemodilution- POC Yes; Hemoglobin Calculated - POC 11.1; Ionized Calcium - POC 1.04 mmol/L (1.12-1.27); O2 Saturation %Calculated-POC 99.9 5 (92-96); PCO2 - POC 40 mmHg (35-45); PO2 - POC 294 mmHg (80-100); POC Comment CPB; Potassium - POC 4.3 mmol/L (3.6-5.0); Sodium - POC 139 mmol/L (135-145); pH - POC 7.43 (7.35-7.45)
[2024-05-24 11:56] LABS: B.E. - POC 1.2 mmol/L; Glucose - POC 150 mg/dl (65-99); HCO3 - POC 26 mmol/L (21-29); Hematocrit - POC 34 % PCV (42-52); Hemodilution- POC Yes; Hemoglobin Calculated - POC 11.6; Ionized Calcium - POC 1.08 mmol/L (1.12-1.27); O2 Saturation %Calculated-POC 99.9 5 (92-96); PCO2 - POC 39 mmHg (35-45); PO2 - POC 278 mmHg (80-100); POC Comment CPB; Potassium - POC 3.6 mmol/L (3.6-5.0); Sodium - POC 141 mmol/L (135-145); pH - POC 7.43 (7.35-7.45)
[2024-05-24 12:00] LABS: ACT+ - POC 960 Seconds (82-134)
[2024-05-24 12:32] LABS: ACT+ - POC 734 Seconds (82-134)
[2024-05-24 12:55] LABS: B.E. - POC 0.9 mmol/L; Glucose - POC 130 mg/dl (65-99); HCO3 - POC 25 mmol/L (21-29); Hematocrit - POC 32 % PCV (42-52); Hemodilution- POC No; Ionized Calcium - POC 1.02 mmol/L (1.12-1.27); O2 Saturation %Calculated-POC 99.9 5 (92-96); PCO2 - POC 38 mmHg (35-45); PO2 - POC 304 mmHg (80-100); POC Comment CPB; Sodium - POC 140 mmol/L (135-145); pH - POC 7.43 (7.35-7.45)
[2024-05-24 13:14] LABS: ACT+ - POC 844 Seconds (82-134)
[2024-05-24 13:30] LABS: B.E. - POC 1.1 mmol/L; Glucose - POC 132 mg/dl (65-99); HCO3 - POC 26 mmol/L (21-29); Hematocrit - POC 31 % PCV (42-52); Hemodilution- POC Yes; Hemoglobin Calculated - POC 10.6; Ionized Calcium - POC 1.03 mmol/L (1.12-1.27); O2 Saturation %Calculated-POC 99.9 5 (92-96); PCO2 - POC 41 mmHg (35-45); PO2 - POC 295 mmHg (80-100); POC Comment CPB; Potassium - POC 3.9 mmol/L (3.6-5.0); Sodium - POC 142 mmol/L (135-145); pH - POC 7.41 (7.35-7.45)
[2024-05-24 13:50] LABS: ACT+ - POC 681 Seconds (82-134)
[2024-05-24 14:07] LABS: B.E. - POC -0.1 mmol/L; Glucose - POC 138 mg/dl (65-99); HCO3 - POC 24 mmol/L (21-29); Hematocrit - POC 28 % PCV (42-52); Hemodilution- POC Yes; Hemoglobin Calculated - POC 9.5; Ionized Calcium - POC 0.98 mmol/L (1.12-1.27); O2 Saturation %Calculated-POC 99.8 5 (92-96); PCO2 - POC 37 mmHg (35-45); PO2 - POC 240 mmHg (80-100); POC Comment WARM; Potassium - POC 4.3 mmol/L (3.6-5.0); Sodium - POC 141 mmol/L (135-145); pH - POC 7.42 (7.35-7.45)
[2024-05-24 14:28] LABS: ACT+ - POC 107 Seconds (82-134)
[2024-05-24 14:39] LABS: B.E. - POC -1.2 mmol/L; Glucose - POC 144 mg/dl (65-99); HCO3 - POC 25 mmol/L (21-29); Hematocrit - POC 29 % PCV (42-52); Hemodilution- POC Yes; Hemoglobin Calculated - POC 9.7; Ionized Calcium - POC 1.18 mmol/L (1.12-1.27); O2 Saturation %Calculated-POC 99.9 5 (92-96); PCO2 - POC 46 mmHg (35-45); PO2 - POC 317 mmHg (80-100); POC Comment POST; Potassium - POC 3.7 mmol/L (3.6-5.0); Sodium - POC 142 mmol/L (135-145); pH - POC 7.34 (7.35-7.45)
[2024-05-24 15:30] LABS: ACT+ - POC 855 Seconds (82-134)
[2024-05-24 16:11] LABS: ACT+ - POC 236 Seconds (82-134)
[2024-05-24 16:18] LABS: B.E. - POC 1.3 mmol/L; Glucose - POC 147 mg/dl (65-99); HCO3 - POC 27 mmol/L (21-29); Hematocrit - POC 25 % PCV (42-52); Hemodilution- POC Yes; Hemoglobin Calculated - POC 8.5; Ionized Calcium - POC 1.06 mmol/L (1.12-1.27); PCO2 - POC 47 mmHg (35-45); PO2 - POC 387 mmHg (80-100); POC Comment WARM; Potassium - POC 4.8 mmol/L (3.6-5.0); Sodium - POC 142 mmol/L (135-145); pH - POC 7.37 (7.35-7.45)
[2024-05-24 16:30] LABS: ACT+ - POC 611 Seconds (82-134)
[2024-05-24 17:13] LABS: B.E. - POC 0.7 mmol/L; Glucose - POC 160 mg/dl (65-99); HCO3 - POC 26 mmol/L (21-29); Hematocrit - POC 26 % PCV (42-52); Hemodilution- POC Yes; Hemoglobin Calculated - POC 8.9; Ionized Calcium - POC 1.02 mmol/L (1.12-1.27); PCO2 - POC 41 mmHg (35-45); PO2 - POC 401 mmHg (80-100); Potassium - POC 5.4 mmol/L (3.6-5.0); Sodium - POC 142 mmol/L (135-145)
[2024-05-24 17:17] LABS: ACT+ - POC 137 Seconds (82-134)
--- NOTE | 2024-05-24 17:27 | W.CVOR.SURPR ---
CVOR Surgeon Immed Pre Op
-
I have examined this patient prior to performance of the scheduled procedure.
The patient's condition is unchanged from the time of the dictated/written History and
Physical and the patient is able to undergo the scheduled procedure.
--- NOTE | 2024-05-24 17:27 | W.IMMPOSTOP ---
Addendum entered and electronically signed by Juan Jose Briggs MD 05/24/24 19:17:
Dictated: [id number]
CORRECTION:
The LEFT RADIAL ARTERY conduit was placed to the OM branch
Original Note:
Surgical Immed Post Op Note
-
CARDIAC SURGERY OPERATIVE NOTE:
Preoperative Dx:
MVCAD w/ unstable angina
[id number]
Extensive smoking history; active smoker
PAD
AAA 4.3cm (2021)
B/L CHRIS
Hx of embolic CVA
Postoperative Dx:
Same
Procedures:
1) Median sternotomy
2) Takedown of DARY (pedicled)
3) L RA endoscopic harvest/prep
4) RLE GSV endoscopic harvest/prep
5) CABG x 3 (DARY to LAD, GSV to RI, GSV to OM)
6) AVR (#25 Inspiris)
7) Re-establishment of CPB w/ repeat cardioplegic arrest for significant venous bleeding laterally
8) Repair of myocardial & epicardial adipose bleeding w/ numerous pericardial & standard pledgetted sutures
Surgeon:
Juan Jose Briggs M.D.
Assistants:
Brooklynn ShaikhAMatthew-CMatthew; endoscopic harvest/prep of L RA; international first officer for re-CPB & repair; closure
Brooklynn LatifA.-Freddie; endoscopic harvest/prep of RLE GSV; international first officer throughout
Anesthesia:
Cole Stern M.D. and Lauren Melvin, C.R.N.A. and Delilah Russell, C.R.N.A.
Perfusion:
Janette Pierson, C.C.P. and Brent Ricks C.C.P.; CPB: 236 + 71; XC: 203 + 28
Findings:
DARY was healthy conduit w/ VERY brisk blood flow; ELD 3.0mm
RA was healthy conduit; ELD 3.25mm
GSV was healthy conduit; ELD 3.5-4.0mm
LAD was visible on the epicardial surface; scattered calcifications; anastomosis at proximal aspect of distal segment; ELD 3.0mm, VERY brisk flow on U/S assessment of DARY-to-LAD.
RI was intramyocardial under approximately 4mm of myocardium; healthy appearing vessel at this location; ELD 2.5mm. VERY brisk flow on U/S assessement of GSV-to-RI both initially and after repair described below
OM was intramyocardial under approximately 4-5mm of myocardium; vessel w/ scattered calcifications; ELD 2.75mm. VERY brisk flow on U/S assessment of RA-to-OM.
Terminal RCA and PDA visually inspected and deemed too small to accommodate bypass
Trileaflet AV w/ significant calcifications on ALL leaflets w/ the L coronary leaflet the most profoundly calcified ; annular extension mainly present on LCC and RCC w/ relative sparing of NCC
AVR w/ #25 Inspiris secured w/ 16 interrupted, pledgetted valve sutures & CorKnot
Valve was well seated on SUSY assessment w/ mean gradient 6mmHg under GA
Initially I was very satisfied w/ surgical result & hemostasis. Pt. from CPB w/o incident and decannulated. Unfortunately approximately 10min post decannulation pt w/ significant lateral bleeding. I was unable to position the heart to
inspect/address source of this bleeding w/o re-establishing CPB. Once CPB was re-established, there was significant VENOUS bleeding coming from the intramyocardial dissection around the graft to the RI. I attempted to place sutured to address this
w/o cardiplegic arrest, but Mr. Fay's tissues were profoundly friable and a number of sutures tore through his divided myocardium/epicardial adipose. I re-established cardioplegic arrest and using a combination of autologous pericardial
pledgets and traditional pledgets, I was able to establish hemastatic control at this location. Additional topical hemostatic agents were applied. The patient was weaned and from CPB w/o further incident.
Transfusion:
1U PRBC and 1pk PLTs
Implants:
Strickland Inspiris RESILIA AVR (#25), SN: [id number]
Epicardial V-wires x 2
CT x 4 (B/L pleural, inferior mediastinal, superior mediastinal)
Sternal wires x 9
Sternal 'Square' plate x 1 w/ 4 - 12mm screws
Condition:
66 sinus w/ slightly widened QRS; 91/54, 52/31, CVP 24. 99%
GTTS: levophed 4, dobutamine 3, cardizem 5, precedex 0.5, insulin 1
Stable/guarde to CVICU
[2024-05-24 17:40] LABS: B.E. - POC -1.8 mmol/L; Glucose - POC 172 mg/dl (65-99); HCO3 - POC 25 mmol/L (21-29); Hematocrit - POC 24 % PCV (42-52); Hemodilution- POC Yes; Hemoglobin Calculated - POC 8.2; Ionized Calcium - POC 1.08 mmol/L (1.12-1.27); O2 Saturation %Calculated-POC 99.9 5 (92-96); PCO2 - POC 49 mmHg (35-45); PO2 - POC 374 mmHg (80-100); POC Comment POST PROTAMINE; Potassium - POC 5.1 mmol/L (3.6-5.0); Sodium - POC 141 mmol/L (135-145); pH - POC 7.31 (7.35-7.45)
[2024-05-24] MEDS: TYLENOL PO ×2 (17:47→22:26)
[2024-05-24] MEDS: PACERONE PO ×2 (17:47→22:24)
[2024-05-24] MEDS: NSS 500 IV (18:05)
[2024-05-24] MEDS: VERSED 0.5 MG IV (18:15)
[2024-05-24 18:20] LABS: Glucose - Point of Care 166 mg/dl (70-99)
[2024-05-24 18:23] LABS: B.E. -1.4 mmol/L; HCO3 25.2 mmol/L (21-28); Ionized Calcium 1.14 mMOL/L (1.15-1.33); PCO2 50 mmHg (35-48); PO2 195 mmHg (83-108); Potassium 5.4 mMOL/L (3.5-5.1); Sodium 138 mMOL/L (136-145); pH 7.31 (7.35-7.45)
[2024-05-24] MEDS: CORDARONE 103 MG IV (18:25)
[2024-05-24 18:26] LABS: Mixed Venous O2 Saturation 73.9 %
[2024-05-24] MEDS: PRECEDEX 100 IV (18:30)
--- NOTE | 2024-05-24 18:30 | PTCARENOTE ---
Pt admitted to CVICU at 1805 from CVOR with CVOR team present. Sedated and ventilated. Pt in SR, rate 60's. Gtts include levophed at 4 mcg/min, Dobutamine at 3 mcg/kg/min, Precedex at 0.5 mcg/kg/hr. Insulin gtt, per glycemic protocol, [facility] gtt
at 5 mg/hr. BP labile on arrival to CVICU. Levo gtt titrated for MAP greater or equal to 65. Off briefly for elevated MAP. NTG gtt briefly started then stopped due to MAP < 65. Pt with runs of nonsustained VT. Dr. Stern and Natty CASSIDY at
bedside. Dr. Stern repositioned Sewan Candice catheter. Amio bolus and gtt started per orders (see JAN). Dobutamine drip down to 2 mcg/kg/min per order. Labs, EKG, and CXR done. CI done: 2.03. Initial MVO2 73.9. Pt did awaken briefly. Versed
given: 0.5 mg IV x 1, followed by 1 mg IV x 1. Pt on vent: SIMV, 60 % FiO2, rate 14, Peep 5, PS 5, TV 550. Sats 100%. Rate increased to 16 per ABG results. BBS present. Few rhonchi present to R anterior lobe. ETT 8 mm, at 23 cm, R lip. V wires
present, attached to temporary PPM. Sternal Aquacel with small amount of bloody drainage, marked. CT x 4, all to -20 cm suction. Q 1 hour documentation or outputs recorded. Belly soft, hypoactive bowel sounds x 4. Palpable pulses to B radials and B
DP/PT's. Dressing to L forearm and RLE : ANN-MARIE wrap clear, dry, intact. Tamayo to gravity drain with pink-tinged UO. Hourly UO recorded.
[2024-05-24] MEDS: VERSED 1 MG IV (18:31)
[2024-05-24 18:35] LABS: INR 1.91
[2024-05-24 18:36] LABS: APTT 40.2 Sec (23.4-35.0)
[2024-05-24] MEDS: CORDARONE 518 MG IV (18:45)
[2024-05-24 18:59] LABS: Hematocrit 26.6 % (39.0-52.0); Hemoglobin 9.7 g/dL (13.0-18.0); Platelet Count 64 10^3/uL (130-400)
[2024-05-24] MEDS: SENOKOT-S PO (19:02)
[2024-05-24] MEDS: DILAUDID 0.5 MG IV (19:03)
[2024-05-24] MEDS: NON-FORMULARY ITEM 1 UNIT RIGHT EYE ×2 (19:04→22:25)
[2024-05-24] MEDS: VANCOCIN 200 IV (19:05)
[2024-05-24 19:14] LABS: Glucose - Point of Care 159 mg/dl (70-99)
[2024-05-24] MEDS: CALCIUM CHLORIDE 10% SYRINGE 50 MG IV ×2 (19:20→23:03)
[2024-05-24] MEDS: CALCIUM CHLORIDE 10% SYRINGE 50 ML IV ×2 (19:20→23:03)
[2024-05-24 19:38] LABS: Blood Urea Nitrogen 16 mg/dl (9-20); Estimated Creatinine Clearance > 125 ml/min; Glucose 170 mg/dl (70-99); Magnesium 2.5 mg/dl (1.6-2.3)
[2024-05-24 19:56] LABS: B.E. -1.8 mmol/L; HCO3 23.1 mmol/L (21-28); O2 Saturation % 99.6 % (94-98); PCO2 39 mmHg (35-48); PO2 153 mmHg (83-108); Potassium 5.3 mMOL/L (3.5-5.1); pH 7.38 (7.35-7.45)
[2024-05-24 19:59] LABS: Mixed Venous O2 Saturation 45.3 %
[2024-05-24 20:08] LABS: Glucose - Point of Care 221 mg/dl (70-99)
--- NOTE | 2024-05-24 20:20 | PTCARENOTE ---
CI 1.50, MVO2 45.3. PA aware. Dobutamine gtt increased to 3 mcg/kg/min.
Dilaudid 0.50 mg given at ~ 1903 for c/o pain. Pt will awaken to voice. Continues to follow simple commands (calender tender and wiggles freya bilaterally). Glycemic protocol maintained. See VS and flowsheet for gtt changes. Weaning Precedex gtt. Family at
bedside and updated on pt status. Will call daughter when pt extubated per request. Pt maintaining 100% Sats on 40 % FiO2. CT and Urine output documented q 1 hour.
[2024-05-24 21:07] LABS: Glucose - Point of Care 179 mg/dl (70-99)
[2024-05-24] MEDS: CARDENE 200 IV (21:16)
[2024-05-24] MEDS: ANCEF 5 IV (21:16)
--- NOTE | 2024-05-24 21:20 | PTCARENOTE ---
Cardizem gtt stopped and Cardene gtt started at 2.5 mg/hr for L radial graft and for BP control, per order of PA. 1 unit of platelets and 1 unit of FFP given per order. Pt continues to awaken to voice, follows commands x 4. See flowsheet for
titration of gtts and VS. Will repeat H&H and platelets. Sats maintained at 99-100%. Pt continues in SR.
[2024-05-24] MEDS: OFIRMEV 100 IV (21:45)
[2024-05-24 22:03] LABS: Glucose - Point of Care 159 mg/dl (70-99)
--- NOTE | 2024-05-24 22:08 | PTCARENOTE ---
Pt placed onto CPAP at 2153. Respiratory rate 10-11 br/min. Spont ex TV 900's. Sats 99-100% on 40% FiO2. No apneic periods. Pt will follow simple commands (professional healthcare representative equally, wiggle toes B feet), brief focus on speaker, opens eyes spontaneously. Precedex
gtt off at 2149.
Repeat ci 2.05 on Dobutamine at 3 mcg/kg/min.
Pt received 1 unit platelets and is receiving 1 unit FFP. Will recheck lab work at 0. CORDELL Maharaj at bedside multiple times to assess pt.
[2024-05-24 22:28] LABS: Hemoglobin 8.7 g/dL (13.0-18.0); Platelet Count 100 10^3/uL (130-400)
[2024-05-24 22:39] LABS: B.E. -1.3 mmol/L; HCO3 23.7 mmol/L (21-28); Ionized Calcium 1.16 mMOL/L (1.15-1.33); O2 Saturation % 99.7 % (94-98); PCO2 40 mmHg (35-48); PO2 139 mmHg (83-108); Potassium 4.2 mMOL/L (3.5-5.1); pH 7.38 (7.35-7.45)
[2024-05-24 22:41] LABS: Mixed Venous O2 Saturation 54.4 %
[2024-05-24 22:48] LABS: INR 1.54; PT 18.6 Sec (11.4-14.6)
[2024-05-24 22:49] LABS: APTT 33.4 Sec (23.4-35.0)
--- NOTE | 2024-05-24 23:00 | RESPNOTE ---
Pt extubated to 6L NC
--- NOTE | 2024-05-24 23:17 | PTCARENOTE ---
Pt extubated at 2300 after obtaining CPAP ABG results. Extubated to 6L/NC. Sats 99% after extubation. No stridor present. Pt stated name and birthdate. Mildly hoarse.
[2024-05-25] VITALS (32 sets, daily range): BP systolic 86–158; BP diastolic 45–77; BMI 34.7
[2024-05-25 00:02] LABS: Glucose - Point of Care 174 mg/dl (70-99)
[2024-05-25] MEDS: ASPIRIN 300 MG RECTAL (00:10)
[2024-05-25] MEDS: ROXICODONE 5 MG PO ×4 (02:04→19:40)
[2024-05-25 02:05] LABS: Glucose - Point of Care 143 mg/dl (70-99)
[2024-05-25] MEDS: FLEXERIL 5 MG PO (03:02)
[2024-05-25 03:18] LABS: Glucose - Point of Care 158 mg/dl (70-99)
[2024-05-25 03:23] LABS: Mixed Venous O2 Saturation 50.1 %
[2024-05-25 03:26] LABS: Ionized Calcium 1.24 mMOL/L (1.15-1.33)
[2024-05-25 03:34] LABS: Hematocrit 22.4 % (39.0-52.0); Hemoglobin 8.1 g/dL (13.0-18.0); Mean Corp Hgb Conc. 36.2 g/dL (33.0-37.0); Mean Corpuscular Hgb 30.8 pg (27.0-31.0); Mean Corpuscular Volume 85.2 fL (80.0-94.0); Mean Platelet Volume 10.7 fL (7.4-10.4); Platelet Count 98 10^3/uL (130-400); Red Blood Cell Count 2.63 10^6/uL (4.70-6.10); Red Cell Dist. Width 13.1 % (11.5-14.5); White Blood Cell Count 10.3 10^3/uL (4.8-10.8)
[2024-05-25 03:49] LABS: Blood Urea Nitrogen 20 mg/dl (9-20); Calcium 8.3 mg/dl (8.4-10.2); Carbon Dioxide 27 mmol/L (22-30); Chloride 109 mmol/L (98-107); Estimated Creatinine Clearance 119 ml/min; Glucose 133 mg/dl (70-99); Magnesium 2.1 mg/dl (1.6-2.3); Potassium 4.4 mmol/L (3.5-5.1); Sodium 138 mmol/L (135-145); eGFR > 60.00
[2024-05-25] MEDS: DILAUDID 0.5 MG IV (03:49)
--- NOTE | 2024-05-25 04:00 | PTCARENOTE ---
labs drawn and sent , EKG completed, Pt will stay lined and in bed per CTPA Tsillina d/t labile BP and multiple drips. Pt tolerating ice chips, no change in assessment .
--- NOTE | 2024-05-25 04:09 | W.PN.CT ---
Today's Communication / Plan
-
-pod #1
-no significant issues overnight. Extubated uneventfully at 11 pm
-CI 2.34, CO 5.37, mVO2 50.1. Drips: Dobut 3, Levo 4, Cardene 2.5 for radial graft, Amio 0.5 for postop nsvt, Insulin 5
-CT output: 2 meds 155/190, 2 pleur 250/340 in 12/24 hrs
-wean off drips as tolerated, then deline
-s/p 1 pRBC, 2 units platelets, and 1 FFP total
-H/h 8.1/22.4 today - ? 1 pRBC transfusion
-platelets 98K today -follow
-avoid hypertension d/t friable tissues or hypotension d/t b/l carotid dz
-current meds (ASA, Plavix, Amio, Crestor, Zetia, Protonix). Holding Lopressor while on Dobut. Transition from Cardene to Norvasc for radial graft
-encourage IS, OOB
Assessment / Plan
-
Assessment:
-s/p AVR (#25 Inspiris); CABG x 3 (DARY to LAD, GSV to RI, L Radial artery to OM) on 05/24/[address] Briggs, pod #1
-required re-establishment of CPB w/ repeat cardioplegic arrest for significant venous bleeding laterally and Repair of myocardial & epicardial adipose bleeding w/ numerous pericardial & standard pledgetted sutures
-intraop SUSY: Valve was well seated w/ mean gradient 6mmHg. EF 60-65%, no wma. Nl RV fxn
-Severe 3v CAD
-USA
-Moderate-severe (MG 27 mmHg, MURIEL 0.9 cm2)
-MAC
-AAA (infrarenal, 4.3 cm)
-Hx CVA (embolic) S/P ILR, 03/2022
-Known b/l ICA stenosis (>70 per recent u/s), cleared for surgery by Vascular Surgery
-Active tobacco abuse (1.5 ppd x 40+ yrs)
-Severe PAD with claudication
-HTN
-HLD
-Prediabetes (A1C 6.2)
-Class 1 obesity (BMI 33)
-GERD
-BPH, on Flomax @ home
-S/P Elbow and ankle surgeries
-Acute postop blood loss anemia - s/p 1 pRBC
-Acute postop thrombocytopenia - s/p 2 units platelets
-Acute postop coagulopathy - s/p 1 FFP
-Acute postop atelectasis
-Acute postop hypovolemia with subsequent hypervolemia
-Acute postop NSVT - tx with Amio drip
Discussed patient care with: Nursing and Care Team
Subjective
Procedure
-s/p AVR (#25 Inspiris); CABG x 3 (DARY to LAD, GSV to RI, L Radial artery to OM) on 05/24/[address] Briggs
-
Date of Service: May 25, 2024
Objective Data
-
PT 18.6 Sec (11.4-14.6) H 05/24/24 22:29
INR 1.54 05/24/24 22:29
APTT 33.4 Sec (23.4-35.0) 05/24/24 22:29
Vital Signs
Vital Signs
Temp Pulse Resp BP Pulse Ox
98.5 F 68 12 86/44 100
05/25/24 00:00 05/25/24 00:05 05/25/24 00:00 05/24/24 23:02 05/25/24 00:00
CT Intake/Output/Weight
05/24/24 05/24/24 05/25/24
06:59 18:59 06:59
Intake Total 209.3 / 1367.3 1158.0 / 1367.3
Output Total 275 / 1315 1040 / 1315
Balance -65.7 / 52.3 118.0 / 52.3
SaO2: 100
Physical Exam
-
General: Awake and AOx3
Cardiovascular: Regular rate & rhythm, No Murmurs and No Rub
Respiratory: Decreased Breath Sounds
Sternum: Stable
Incision: Clean, Dry and Dressing Intact
Extremities: No Edema (DPs and PTs by Doppler b/l)
Data Reviewed
-
Lab Results: Results Reviewed
Medications: Active Meds Reviewed
Chest X-Ray: Report Reviewed and Image Reviewed
ECG: Report Reviewed and Image Reviewed
[2024-05-25 04:17] LABS: Glucose - Point of Care 151 mg/dl (70-99)
[2024-05-25] MEDS: ANCEF 5 IV ×2 (05:47→13:00)
[2024-05-25] MEDS: TYLENOL 1000 MG PO ×3 (05:47→21:16)
[2024-05-25 05:57] LABS: Glucose - Point of Care 134 mg/dl (70-99)
[2024-05-25] MEDS: LEVOPHED 250 IV (06:05)
--- NOTE | 2024-05-25 07:00 | PTCARENOTE ---
Bedside walking rounds report received. Patient seen on rounds resting in bed. Oriented x 3 and following simple commands and moving all extremities x 4. Left hand numb and tingly and right hand with numbness at the fingertips: ct roberto [employer] Natty
aware of same and updated with latest hemodynamics: new orders: plan: dc cardene and amiodarone on po amio and amlidopine given. A bit groggy. Levo titrated down as tolerated. Pericardial rub auscultated. Denies nausea. Belching. Temp epicardial v
wire to [employer] box rate of 40 ma of 5 and sensitivity of 2. See flowrecord for remaining assessments. Chest tbes x 4 without 'dumping.'
--- NOTE | 2024-05-25 07:00 | W.PN.CD ---
Today's Communication / Plan
-
Routine post operative management.
Encourage incentive spirometry.
Ambulate when appropriate.
Chest tube/pain control per CTS.
Maintain H/H > 8/24. IF transfusion given, please give furosemide 20 mg IV x1.
Consider more aggressive diuresis in the coming days.
Impression / Plan
-
Impression/Plan: 63 y/o male vasculopath admitted with PAD, AAA, CHRIS and moderate/severe admitted with unstable angina and a markedly abnormal stress test, found to have multivessel CAD.
#CAD
-Chronic, unstable.
-Abnormal stress test 05/17/24 with anterior ischemia and TID.
-Multivessel coronary artery disease on cardiac catheterization.
-S/P 3V CABG (pedicled SANTANA to LAD, LRA to OM, SVG to RI) with Dr. Briggs, 05/24/2025.
-Routine post operative management.
-Currently on dobutamine, norepinephrine, nicardipine (radial graft). Wean pressors/inotropes. Keep MAP > 65 mmHg, CI > 2.2 L/min/m2.
-Restart rosuvastatin when taking PO.
-Chest tube/pain management per CT surgery.
-Weight is up significantly but SVR is low normal on pressors/inotropes - he is not ready for diuresis (third spacing).
#Moderate to severe aortic stenosis
-Chronic, stable.
-S/P #25 Strickland Inspiris SAVR (SN [id number]) with Dr. Briggs, 05/24/2025.
-Post operative management as above.
#Anemia
-Acute, post operative.
-Received 1 unit of PRBC's, 1 unit of platelets, 2 units of FFP.
-Weight is up > 7 kg. He has true blood loss but probably a significant component of dilution.
-Maintain H/H > 8/24. Transfuse if needed. He is not ready for aggressive diuresis, but I would consider furosemide 20 mg IV if products are given.
#HTN
-Chronic, stable
-Adjust medications post op.
#HLD
-Chronic, stable.
-Total cholesterol = 102, LDL = 39, HDL = 48, VLDL = 15, triglycerides = 79.
-Continue rosuvastatin 40 mg daily and ezetimibe 10 mg daily.
#PAD/CHRIS
-Chronic, stable to mildly progressive.
-Bilateral >70% carotid artery stenosis, likely overcalled on Duplex compared to CTA. Vascular surgery does not feel carotid revasc needed preop.
-AAA 4.[address] in 2021. AAA will be followed with serial imaging
-Also noted severe R SFA stenosis with claudication. This will be managed outpatient.
#Hx of CVA
-Suspected embolic, 2021.
-ILR in place, no Afib.
-No new neuro symptoms.
Critical Care Time = 35 minutes.
Subjective/Interval History:
3V CABG + SAVR yesterday.
The patient's operative course was complicated by intramyocardial arteries in the LCx, juxtaposed with a large vein which was unknowningly incised during the surgery due to the depth of both vessels. This was not seen until the patient's heart was
repressurized, leading to hemorrhage in the surgical field. Initial beating heart attempt were unsuccessful due to highly friable tissue. The patient had to be re-arrested and the vein was repaired with a combination of in situ pericardial
pledgets and standard pledgets. The patient was repressurized, now with excellent hemostasis due to Dr. Briggs's heroic efforts.
Recieved PRB's x1, FFP x2, platelets x1.
Extubated overnight, now on 6LNC.
Weight is up 7.3 kg from preop.
RA pressure 8.
CI 2.28.
PADP 12.
SVR ~ 900.
DATA:
Abdominal US, 05/19/2024:
IMPRESSION: Fusiform infrarenal abdominal aortic aneurysm measuring up to 4.3 cm in diameter, no significant interval increase in size as compared with CT of July 2022.
Carotid Duplex, 05/19/2024:
IMPRESSION: By velocity criteria, there is greater than 70% stenosis of the bilateral internal carotid arteries. Peak systolic velocity slightly decreased on the right as compared with prior, 292 cm/s versus 304 cm/s prior. Peak systolic velocity
increased on the right as compared with prior, 485 cm/s as compared with 241 cm/s prior.
YUMIKO, 05/19/2024:
IMPRESSION:
1. Right ankle brachial index of 0.82 is improved as compared with 0.65 prior. Toe brachial index of 0.43, slightly improved from 0.34 prior. Common femoral waveform is multiphasic, but somewhat dampened suggesting probable inflow disease. There
is a moderate stenosis of the profunda femoral artery. There is a severe stenosis of the mid right superficial femoral artery.
2. Left ankle-brachial index of 0.79 is slightly decreased from 0.91 prior. Within the mild claudication range. The toe brachial index of 0.44 is without significant change from 0.45 prior. No signs of inflow disease on the left. There is a
moderate profunda femoral stenosis. Waveforms remain multiphasic to the popliteal, with dampened Doppler waveforms at the ankle consistent with the presence of infrapopliteal small vessel disease.
Cardiac Catheterization, 05/18/2024:
CONCLUSIONS
1. Right dominant circulation with BIAS CUTTER of the proximal RCA, a cloacal left main coronary artery with an occlusive ostial 70+ percent lesion (IFR = 0.80), a 60% lesion in the distal LAD (IFR = 0.54), a 70% lesion in the ostium of the circumflex
followed by an 80% lesion in the mid vessel, and a 90% lesion in the ostium of the large nondominant circumflex.
2. Normal filling pressures (LVEDP = 12 mmHg at 108.9 kg).
3. Probably moderate to severe aortic valve stenosis (mean gradient 34.75 mmHg).
TTE, 05/18/2024:
CONCLUSIONS
1. Normal LV size with inferobasal akinesis and inferior hypokinesis. LVEF 55-60%.
2. MAC.
3. Moderate to severe with mean gradient 27mm Hg, MURIEL 0.9cm2.
4. Compared with study, has progressed.
Physical Exam
Vital Signs/Labs
Vital Signs
Temp Pulse Resp BP Pulse Ox
37.2 C 79 16 111/46 99
05/25/24 06:00 05/25/24 06:15 05/25/24 06:00 05/25/24 06:00 05/25/24 06:00
05/23/24 05/24/24 05/25/24
11:59 11:59 11:59
Actual Weight 108.6 kg 115.9 kg
05/25/24 03:12
05/25/24 03:12
PT 18.6 Sec (11.4-14.6) H 05/24/24 22:29
INR 1.54 05/24/24 22:29
APTT 33.4 Sec (23.4-35.0) 05/24/24 22:29
Magnesium 2.1 mg/dl (1.6-2.3) 05/25/24 03:12
Triglycerides 79 mg/dl (10-149) 05/18/24 06:13
LDL Cholesterol, Calc 39 mg/dl 05/18/24 06:13
VLDL Cholesterol, Calc 15 mg/dl (0-30) 05/18/24 06:13
HDL Cholesterol 48 mg/dl 05/18/24 06:13
Physical Exam
Constitutional: No acute distress and Comfortable
EENT: Anicteric and Moist mucous membranes
Cardiovascular: Rhythm & rate is regular, Pedal edema is absent, JVD pressure is normal, Systolic murmur absent, Diastolic murmur absent, S1S2 is normal and Rub present
Respiratory: Respiratory effort normal and Other (Diminished throughout.)
GI: Soft, Distention absent, Flat and Non tender
Neuro/Psych: AO x 3
Data Reviewed
-
Date of Service: May 25, 2024
Medical Decision Making: Reviewed Test Results, Independent Historian Assessment, Test Interpretation and Review of Case with other Provider
EKG: Tracing Personally Visualized and interpreted and Report Reviewed by me
Echo: Tracing Personally Visualized and interpreted and Report Reviewed by me
X-Ray/CT/US/MRI/NUC/PET: Image Personally Visualized and interpreted and Report Reviewed by me
Medical Tests (PFT, Pathology etc): Image Personally Visualized and interpreted and Report Reviewed by me
Labs: Labs Reviewed by me
Old Records: Reviewed
[2024-05-25] MEDS: NOVOLIN R INSULIN INFUSION 100 IV (07:05)
[2024-05-25 07:19] LABS: Glucose - Point of Care 141 mg/dl (70-99)
--- NOTE | 2024-05-25 07:31 | W.PN.ANS.POP ---
Anesthesia Post Operative
- Anesthesia Post Op Note
Vital Signs Stable-See Nursing Note: Yes (pt remains on cardene, levo, dobutamine, & amio)
Airway Patent: Yes
Adequate Pain Control: Yes
Change in Mental Status: No
Current Postoperative Nausea & Vomiting: No
Anesthesia Complications: No
General Anesthetic Recall: No
Unplanned Admission: No
Post Op Hydration Adequate: Yes
[2024-05-25 07:48] LABS: ACT+ - POC > 1003 Seconds (82-134)
[2024-05-25 07:48] LABS: ACT+ - POC > 1003 Seconds (82-134)
[2024-05-25] MEDS: NORVASC 2.5 MG PO (07:49)
[2024-05-25] MEDS: VITAMIN C 500 MG PO (07:49)
[2024-05-25] MEDS: PACERONE 200 MG PO ×4 (07:50→21:16)
[2024-05-25] MEDS: SENOKOT-S 1 TABLET PO ×2 (07:50→19:40)
[2024-05-25] MEDS: MAGNESIUM OXIDE 500 MG PO ×2 (07:50→19:40)
[2024-05-25] MEDS: NICODERM TRANSDERMAL 21 MG TRANSDERM (07:51)
[2024-05-25] MEDS: LOW STRENGTH ASPIRIN 81 MG PO (07:51)
[2024-05-25] MEDS: LYRICA 200 MG PO (07:52)
[2024-05-25] MEDS: CRESTOR 40 MG PO (07:53)
[2024-05-25] MEDS: ZETIA 10 MG PO (07:53)
[2024-05-25] MEDS: FEOSOL 325 MG PO (07:54)
[2024-05-25] MEDS: PLAVIX 75 MG PO (07:54)
[2024-05-25] MEDS: LIDOCAINE 4% PATCH 1 PATCH TOPICAL (07:54)
[2024-05-25] MEDS: PROTONIX 40 MG PO (07:54)
[2024-05-25] MEDS: BACTROBAN 2% OINTMENT 1 APPLIC NASAL ×2 (07:55→19:39)
[2024-05-25] MEDS: NON-FORMULARY ITEM 2 UNIT RIGHT EYE (07:57)
[2024-05-25 09:14] LABS: Glucose - Point of Care 110 mg/dl (70-99)
[2024-05-25] MEDS: REGLAN 10 MG IV (09:58)
--- NOTE | 2024-05-25 11:15 | PTCARENOTE ---
No acute changes. NSR. Dobutrex and levo weaned off. OK to deline if stable vitals per CT surgery team: updated with latest outputs and all hemodynamics.
[2024-05-25 11:49] LABS: Glucose - Point of Care 114 mg/dl (70-99)
--- NOTE | 2024-05-25 11:57 | CON.INTV ---
Consultation
Consultation Request
Date/Time Consultation Requested: 05/25/2024
Date/Time Consultation Performed: 05/25/2024
Requesting Provider: Dr. Briggs
Performing Provider: Dr. Kwasi Sainz
Reason for Consultation: Status post CAB/AVR-postoperative ICU
Medical History
-
History of Present Illness:
63-year-old man who has history of tobacco abuse originally admitted to the hospital on 05/17/2024 complaining of several weeks of chest pain. In the outpatient setting he was found to have abnormal stress test. He was sent to the emergency room
for further evaluation. Subsequently underwent left heart catheterization that demonstrated multivessel coronary artery disease. Also moderate to severe aortic stenosis. Patient was evaluated by CT surgery and he was deemed candidate for
revascularization and aortic valve replacement.
Procedure underwent on 05/25/2024.
Past Medical History
Past Medical History: Other ( see assessment and plan section)
Social History
Tobacco: Smoker (1.5-2 packs/day for 48 years.)
Alcohol: Occasional
Drug: Marijuana
Employment: Employed ([employer])
Family History
Family History: Other (Mother CVA age 67, father lung CA age 67 patient has 4 brothers unsure any medical problems 2 sisters no medical problems)
Allergies / Home Medications
Allergies
Allergy/AdvReac Type Severity Reaction Status Date / Time
No Known Allergies Allergy Verified 03/23/22 07:38
Home Medications
�Medication �Instructions �Recorded �Confirmed �Last Taken �Type
lisinopril 20 mg tablet 20 mg PO DAILY Blood pressure 06/05/20 05/17/24 03/22/22 06:00 History
aspirin 81 mg chewable tablet 81 mg PO DAILY 30 days #30 tabs 03/01/22 05/17/24 03/22/22 06:00 Rx
ezetimibe 10 mg tablet (Zetia) 10 mg PO DAILY 03/23/22 05/17/24 03/22/22 06:00 History
Prilosec OTC 40 mg PO DAILY PRN acid reflux 05/17/24 05/17/24 05/16/24 22:00 History
ciprofloxacin 2 drp RIGHT EYE QID 05/17/24 05/17/24 05/17/24 12:00 History
metoprolol succinate 25 mg 25 mg PO DAILY 05/17/24 05/17/24 Unknown History
tablet,extended release 24 hr
pregabalin 200 mg capsule 200 mg PO DAILY 05/17/24 05/17/24 Unknown History
rosuvastatin 40 mg tablet 40 mg PO DAILY 05/17/24 05/17/24 Unknown History
tamsulosin 0.4 mg capsule (Flomax) 0.4 mg PO DAILY 05/17/24 05/17/24 Unknown History
Review of Systems
-
History Source: Patient
All other systems: Negative unless noted
Vitals / Labs / Diagnostic Testing
Vital Signs
Temp Pulse Resp BP Pulse Ox
99.1 F 83 11 136/66 97
05/25/24 08:12 05/25/24 10:25 05/25/24 10:25 05/25/24 10:06 05/25/24 08:12
Lab Data
05/25/24 03:12
05/25/24 03:12
Laboratory Results
05/24/24 05/24/24 05/24/24
18:16 19:48 22:29
PT 22.0 H 18.6 H
INR 1.91 1.54
APTT 40.2 H 33.4
pH 7.31 L 7.38 7.38
pCO2 50 H 39 40
pO2 195 H 153 H 139 H
HCO3 25.2 23.1 23.7
O2 Delivery Level
Diagnostic Testing:
Physical Exam
-
HEENT: Normocephalic
Cardiovascular: S1/S2 and Other (Sternotomy intact)
Respiratory: Clear and Non-Labored Respirations
GI: Soft and Non Distended
Neurology: Awake, Alert and Oriented
Skin: Warm
General: Comfortable
Assessment
-
63-year-old man admitted with unstable angina. Abnormal stress test. Underwent left heart catheterization demonstrated multivessel coronary artery disease. Underwent coronary artery bypass and AVR on 05/24/2024.
Status post coronary artery bypass/AVR 05/24/[address] Briggs
-required re-establishment of CPB w/ repeat cardioplegic arrest for significant venous bleeding laterally and Repair of myocardial & epicardial adipose bleeding w/ numerous pericardial & standard pledgetted sutures
Postoperative anemia
Conditions present prior admission:
History of TIA 2020 2021
Hypertension
Hyperlipidemia
Tobacco abuse
Daily marijuana use
Obesity
Back pain and peripheral neuropathy
Coronary artery disease
Echocardiogram 05/18/2024: Showed normal LVEF. Moderate to severe .
Cardiac catheterization 05/17/2024: Showed multivessel coronary artery disease. Moderate to severe aortic valve stenosis.
Assessment and plan:
Postoperative day 1
Extubated on low rate supplemental oxygen.
Continue analgesia with narcotics and monitor respiratory status closely
-
Hemodynamics: Vasoactive drugs have been discontinued this afternoon.
PA catheter in place/arterial line in place. Continue to follow hemodynamics.
No evidence for active bleeding
Tamayo in place, follow urinary output and renal function.
Eventual diuresis
-
Anemia: Status post 1 unit packed red blood cells and platelets
Monitor daily H&H.
Thrombocytopenia: Follow daily CBC
-
Chest tube in place: No excessive drainage. No air leak.
Chest x-ray 05/25/2024: Reviewed. No pneumothorax. No significant pleural effusion.
Daily chest x-ray
-
Glycemic control per protocol
-
Smoking cessation encouraged. Nicotine replacement.
Mild paraseptal emphysema on CAT scan
-
Advance diet as able
Increase activity as able
-
DVT prophylaxis-SCDs. Eventual pharmacological prophylaxis
[2024-05-25 12:46] LABS: Glucose - Point of Care 120 mg/dl (70-99)
--- NOTE | 2024-05-25 14:00 | PTCARENOTE ---
No acute changes. Vitals stable. Delined.
[2024-05-25 14:24] LABS: Glucose - Point of Care 81 mg/dl (70-99)
[2024-05-25 15:20] LABS: Glucose - Point of Care 92 mg/dl (70-99)
--- NOTE | 2024-05-25 16:00 | PTCARENOTE ---
Attempted to get patient oob to chair with moderate assist of 2: very lightheaded and tachy when stood at bedside and not taking deep breaths: BPs taken sitting and standing: no 'Dumping' noted from chest tubes. Unable to ambulate short distance to
chair. HOB elevated to 30 degrees. 2l nasal canula to maintain puse ox sts greater than 90%. No acute arrhythmias noted. Above events reported to ANTWAN Luz: rest tonight, encourage IS, and attempt oob to chair in am along with probable jenkins cath
removal: will get flomax per ct surg order.
[2024-05-25] MEDS: NON-FORMULARY ITEM RIGHT EYE ×3 (16:17→21:16)
[2024-05-25] MEDS: NSS IV (16:18)
[2024-05-25 16:32] LABS: Glucose - Point of Care 121 mg/dl (70-99)
[2024-05-25] MEDS: NOVOLOG FLEXPEN-MODERATE RESISTANCE SC (18:16)
[2024-05-25 18:18] LABS: Glucose - Point of Care 138 mg/dl (70-99)
[2024-05-25] MEDS: FLOMAX 0.4 MG PO (18:20)
[2024-05-25] MEDS: LOPRESSOR 12.5 MG PO (19:40)
[2024-05-26] VITALS (27 sets, daily range): BP systolic 98–177; BP diastolic 50–81; PULSE 87; O2SAT 96–98; BMI 35.2
[2024-05-26] MEDS: ROXICODONE 5 MG PO ×3 (00:26→11:39)
[2024-05-26] MEDS: DILAUDID 0.5 MG IV (02:50)
[2024-05-26 05:48] LABS: Red Blood Cell Count 2.67 10^6/uL (4.70-6.10); White Blood Cell Count 11.5 10^3/uL (4.8-10.8)
[2024-05-26 05:49] LABS: Hematocrit 23.7 % (39.0-52.0); Hemoglobin 8.4 g/dL (13.0-18.0); Mean Corp Hgb Conc. 35.4 g/dL (33.0-37.0); Mean Corpuscular Hgb 31.5 pg (27.0-31.0); Mean Corpuscular Volume 88.8 fL (80.0-94.0); Mean Platelet Volume 11.1 fL (7.4-10.4); Platelet Count 94 10^3/uL (130-400); Red Cell Dist. Width 14.5 % (11.5-14.5)
[2024-05-26 06:02] LABS: Blood Urea Nitrogen 31 mg/dl (9-20); Carbon Dioxide 27 mmol/L (22-30); Chloride 103 mmol/L (98-107); Estimated Creatinine Clearance > 125 ml/min; Glucose 169 mg/dl (70-99); Potassium 4.2 mmol/L (3.5-5.1); Sodium 134 mmol/L (135-145); eGFR > 60.00
[2024-05-26] MEDS: TYLENOL 1000 MG PO ×2 (06:28→20:13)
--- NOTE | 2024-05-26 06:49 | W.PN.CT ---
Addendum entered and electronically signed by Juan Jose Briggs MD 05/26/24 10:41:
I saw and examined the patient.
The PA's note was reviewed and I agree with the note.
Comment:
Doing well
OOB, IS, ambulate
D/C CTs
Increase BB
Original Note:
Today's Communication / Plan
-
-pod #2
-pt c/o tingling in R hand and swelling in both arms - reassured
-hypertensive- increased BB 25 bid
-diurese
-CT output: 2 meds 40/200, 2 pleur 40/110 in 12/24 hrs
-current meds (ASA, Plavix, Lopressor, Amio, Crestor, Zetia, Protonix, Norvasc for radial graft).
-encourage IS, OOB
Assessment / Plan
-
Assessment:
-s/p AVR (#25 Inspiris); CABG x 3 (DARY to LAD, GSV to RI, L Radial artery to OM) on 05/24/[address] Briggs, pod #2
-required re-establishment of CPB w/ repeat cardioplegic arrest for significant venous bleeding laterally and Repair of myocardial & epicardial adipose bleeding w/ numerous pericardial & standard pledgetted sutures
-intraop SUSY: Valve was well seated w/ mean gradient 6mmHg. EF 60-65%, no wma. Nl RV fxn
-Severe 3v CAD
-USA
-Moderate-severe (MG 27 mmHg, MURIEL 0.9 cm2)
-MAC
-AAA (infrarenal, 4.3 cm)
-Hx CVA (embolic) S/P ILR, 03/2022
-Known b/l ICA stenosis (>70 per recent u/s), cleared for surgery by Vascular Surgery
-Active tobacco abuse (1.5 ppd x 40+ yrs)
-Severe PAD with claudication
-HTN
-HLD
-Prediabetes (A1C 6.2)
-Class 1 obesity (BMI 33)
-GERD
-BPH, on Flomax @ home
-S/P Elbow and ankle surgeries
-Acute postop blood loss anemia - s/p 1 pRBC
-Acute postop thrombocytopenia - s/p 2 units platelets
-Acute postop coagulopathy - s/p 1 FFP
-Acute postop atelectasis
-Acute postop hypovolemia with subsequent hypervolemia
-Acute postop NSVT - tx with Amio drip
Discussed patient care with: Nursing and Care Team
Subjective
Procedure
-s/p AVR (#25 Inspiris); CABG x 3 (DARY to LAD, GSV to RI, L Radial artery to OM) on 05/24/[address] Briggs
-
Date of Service: May 26, 2024
Objective Data
-
Lab Results
05/26/24 04:15
05/26/24 04:15
PT 18.6 Sec (11.4-14.6) H 05/24/24 22:29
INR 1.54 05/24/24 22:29
APTT 33.4 Sec (23.4-35.0) 05/24/24 22:29
Vital Signs
Vital Signs
Temp Pulse Resp BP Pulse Ox
98.5 F 109 18 154/74 93
05/25/24 20:00 05/26/24 05:40 05/25/24 20:00 05/26/24 05:00 05/25/24 20:00
CT Intake/Output/Weight
05/25/24 05/25/24 05/26/24
06:59 18:59 06:59
Intake Total 1603.8 / 1813.1 1922.6 / 1922.6
Output Total 1465 / 1740 860 / 1590 730 / 1590
Balance 138.8 / 73.1 1062.6 / 332.6 -730 / 332.6
SaO2: 93
Physical Exam
-
General: Awake and AOx3
Cardiovascular: Regular rate & rhythm, No Murmurs and Rub
Respiratory: Decreased Breath Sounds
Sternum: Stable
Incision: Clean, Dry and Intact
Extremities: Edema +1
Data Reviewed
-
Lab Results: Results Reviewed
Medications: Active Meds Reviewed
Chest X-Ray: Report Reviewed and Image Reviewed
ECG: Report Reviewed and Image Reviewed
--- NOTE | 2024-05-26 07:00 | PTCARENOTE ---
Bedside walking rounds report received. Patient seen on rounds resting in bed. Oriented x 3 and following simple commands and moving all extremities x 4. Left hand slightly numb and tingly and right hand with numbness at the fingertips/improved from
previous day: A bit groggy. Pericardial rub auscultated. Denies nausea. Belching. Temp epicardial v wire to [employer] box rate of 40 ma of 5 and sensitivity of 2. See flowrecord for remaining assessments. Chest tubes x 4 without 'dumping.'Chest
tubes x 4 dc at 9am by Natty MONCADA with RN assist to tie sutures.
[2024-05-26] MEDS: PLAVIX 75 MG PO (07:57)
[2024-05-26] MEDS: LOPRESSOR 25 MG PO ×2 (07:57→20:14)
[2024-05-26] MEDS: FEOSOL 325 MG PO (07:58)
[2024-05-26] MEDS: PROTONIX 40 MG PO (07:58)
[2024-05-26] MEDS: LYRICA 200 MG PO (07:58)
[2024-05-26] MEDS: CRESTOR 40 MG PO (07:58)
[2024-05-26] MEDS: VITAMIN C 500 MG PO (07:58)
[2024-05-26] MEDS: ZETIA 10 MG PO (07:58)
[2024-05-26] MEDS: SENOKOT-S 1 TABLET PO ×2 (07:59→20:12)
[2024-05-26] MEDS: MAGNESIUM OXIDE 500 MG PO ×2 (07:59→20:12)
[2024-05-26] MEDS: NICODERM TRANSDERMAL 21 MG TRANSDERM (07:59)
[2024-05-26] MEDS: FLOMAX 0.4 MG PO (07:59)
[2024-05-26] MEDS: NORVASC 2.5 MG PO (07:59)
[2024-05-26] MEDS: LIDOCAINE 4% PATCH 1 PATCH TOPICAL (08:00)
[2024-05-26] MEDS: LOW STRENGTH ASPIRIN 81 MG PO (08:01)
[2024-05-26] MEDS: NON-FORMULARY ITEM RIGHT EYE (08:02)
[2024-05-26] MEDS: ZESTRIL 5 MG PO (08:02)
[2024-05-26] MEDS: BACTROBAN 2% OINTMENT 1 APPLIC NASAL ×2 (08:08→20:14)
--- NOTE | 2024-05-26 08:44 | W.PN.CD ---
Today's Communication / Plan
-
NAEO patient OOB in chair
Agree with diuresis
Increase BB and lisinopril home dose was 20 mg
Impression / Plan
-
Impression/Plan: 63 y/o male vasculopath admitted with PAD, AAA, CHRIS and moderate/severe admitted with unstable angina and a markedly abnormal stress test, found to have multivessel CAD.
#CAD
-Chronic, unstable.
-Abnormal stress test 05/17/24 with anterior ischemia and TID.
-Multivessel coronary artery disease on cardiac catheterization.
-S/P 3V CABG (pedicled SANTANA to LAD, LRA to OM, SVG to RI) with Dr. Briggs, 05/24/2025.
-Routine post operative management.
-now off inotropes
-Restart rosuvastatin when taking PO.
-Chest tube/pain management per CT surgery.
-HTN today would try diuresis
#Moderate to severe aortic stenosis
-Chronic, stable.
-S/P #25 Strickland Inspiris SAVR (SN [id number]) with Dr. Briggs, 05/24/2025.
-Post operative management as above.
#Anemia
-Acute, post operative.
-Received 1 unit of PRBC's, 1 unit of platelets, 2 units of FFP.
-Weight is up > 7 kg. He has true blood loss but probably a significant component of dilution.
-Maintain H/H > 8/24. Transfuse if needed.
#HTN
-Chronic, stable
-Resume lisinopril home dose of 20
- Agree with diuresis
#HLD
-Chronic, stable.
-Total cholesterol = 102, LDL = 39, HDL = 48, VLDL = 15, triglycerides = 79.
-Continue rosuvastatin 40 mg daily and ezetimibe 10 mg daily.
#PAD/CHRIS
-Chronic, stable to mildly progressive.
-Bilateral >70% carotid artery stenosis, likely overcalled on Duplex compared to CTA. Vascular surgery does not feel carotid revasc needed preop.
-AAA 4.[address] in 2021. AAA will be followed with serial imaging
-Also noted severe R SFA stenosis with claudication. This will be managed outpatient.
#Hx of CVA
-Suspected embolic, 2021.
-ILR in place, no Afib.
-No new neuro symptoms.
Critical Care Time = 35 minutes.
Subjective/Interval History:
3V CABG + SAVR May 24
The patient's operative course was complicated by intramyocardial arteries in the LCx, juxtaposed with a large vein which was unknowningly incised during the surgery due to the depth of both vessels. This was not seen until the patient's heart was
repressurized, leading to hemorrhage in the surgical field. Initial beating heart attempt were unsuccessful due to highly friable tissue. The patient had to be re-arrested and the vein was repaired with a combination of in situ pericardial
pledgets and standard pledgets. The patient was repressurized, now with excellent hemostasis due to Dr. Briggs's heroic efforts.
Recieved PRB's x1, FFP x2, platelets x1.
Extubated overnight, now on 6LNC.
Weight is up 7.3 kg from preop.
He is OOB in a chair and feels better today
DATA:
Abdominal US, 05/19/2024:
IMPRESSION: Fusiform infrarenal abdominal aortic aneurysm measuring up to 4.3 cm in diameter, no significant interval increase in size as compared with CT of July 2022.
Carotid Duplex, 05/19/2024:
IMPRESSION: By velocity criteria, there is greater than 70% stenosis of the bilateral internal carotid arteries. Peak systolic velocity slightly decreased on the right as compared with prior, 292 cm/s versus 304 cm/s prior. Peak systolic velocity
increased on the right as compared with prior, 485 cm/s as compared with 241 cm/s prior.
YUMIKO, 05/19/2024:
IMPRESSION:
1. Right ankle brachial index of 0.82 is improved as compared with 0.65 prior. Toe brachial index of 0.43, slightly improved from 0.34 prior. Common femoral waveform is multiphasic, but somewhat dampened suggesting probable inflow disease. There
is a moderate stenosis of the profunda femoral artery. There is a severe stenosis of the mid right superficial femoral artery.
2. Left ankle-brachial index of 0.79 is slightly decreased from 0.91 prior. Within the mild claudication range. The toe brachial index of 0.44 is without significant change from 0.45 prior. No signs of inflow disease on the left. There is a
moderate profunda femoral stenosis. Waveforms remain multiphasic to the popliteal, with dampened Doppler waveforms at the ankle consistent with the presence of infrapopliteal small vessel disease.
Cardiac Catheterization, 05/18/2024:
CONCLUSIONS
1. Right dominant circulation with CONCAVER of the proximal RCA, a cloacal left main coronary artery with an occlusive ostial 70+ percent lesion (IFR = 0.80), a 60% lesion in the distal LAD (IFR = 0.54), a 70% lesion in the ostium of the circumflex
followed by an 80% lesion in the mid vessel, and a 90% lesion in the ostium of the large nondominant circumflex.
2. Normal filling pressures (LVEDP = 12 mmHg at 108.9 kg).
3. Probably moderate to severe aortic valve stenosis (mean gradient 34.75 mmHg).
TTE, 05/18/2024:
CONCLUSIONS
1. Normal LV size with inferobasal akinesis and inferior hypokinesis. LVEF 55-60%.
2. MAC.
3. Moderate to severe with mean gradient 27mm Hg, MURIEL 0.9cm2.
4. Compared with study, has progressed.
Physical Exam
Vital Signs/Labs
Vital Signs
Temp Pulse Resp BP Pulse Ox
98.6 F 100 18 172/81 96
05/26/24 07:55 05/26/24 07:55 05/26/24 07:55 05/26/24 07:55 05/26/24 07:55
05/25/24 05/26/24 05/27/24
06:59 06:59 06:59
Actual Weight 255 lb 8.252 oz
05/26/24 04:15
05/26/24 04:15
PT 18.6 Sec (11.4-14.6) H 05/24/24 22:29
INR 1.54 05/24/24 22:29
APTT 33.4 Sec (23.4-35.0) 05/24/24 22:29
Magnesium 2.0 mg/dl (1.6-2.3) 05/26/24 04:15
Triglycerides 79 mg/dl (10-149) 05/18/24 06:13
LDL Cholesterol, Calc 39 mg/dl 05/18/24 06:13
VLDL Cholesterol, Calc 15 mg/dl (0-30) 05/18/24 06:13
HDL Cholesterol 48 mg/dl 05/18/24 06:13
Physical Exam
Constitutional: No acute distress
EENT: Anicteric
Cardiovascular: Rhythm & rate is regular
Respiratory: Respiratory effort normal and Lungs clear to auscul.
GI: Soft
Neuro/Psych: AO x 3
Data Reviewed
-
Date of Service: May 26, 2024
EKG: Tracing Personally Visualized and interpreted (sr)
Echo: Report Reviewed by me
Labs: Labs Reviewed by me
--- NOTE | 2024-05-26 09:00 | PTCARENOTE ---
Assisted patient back to bed. Chest tubes x 4 (2 meds and right and left pleural) dc by ANTWAN Luz with RN assist for tying sutures purse string style. Assisted patient back oob to chair. Room air.
[2024-05-26] MEDS: NOVOLOG FLEXPEN-MODERATE RESISTANCE 3 UNITS SC ×2 (09:04→14:17)
[2024-05-26 09:12] LABS: Glucose - Point of Care 221 mg/dl (70-99)
--- NOTE | 2024-05-26 10:27 | W.PN.INTV ---
Today's Communication / Plan
Recommendations
Cont. post op care.
Follow HH.
Increase activity as able.
Follow chest tube output
Daily CXR
will sign off.
Assessment
-
63-year-old man admitted with unstable angina. Abnormal stress test. Underwent left heart catheterization demonstrated multivessel coronary artery disease. Underwent coronary artery bypass and AVR on 05/24/2024.
Status post coronary artery bypass/AVR 05/24/[address] Briggs
-required re-establishment of CPB w/ repeat cardioplegic arrest for significant venous bleeding laterally and Repair of myocardial & epicardial adipose bleeding w/ numerous pericardial & standard pledgetted sutures
Postoperative anemia
Conditions present prior admission:
History of TIA 2020 2021
Hypertension
Hyperlipidemia
Tobacco abuse
Daily marijuana use
Obesity
Back pain and peripheral neuropathy
Coronary artery disease
Echocardiogram 05/18/2024: Showed normal LVEF. Moderate to severe .
Cardiac catheterization 05/17/2024: Showed multivessel coronary artery disease. Moderate to severe aortic valve stenosis.
Assessment and plan:
Postoperative day 2
Continue analgesia with narcotics and monitor respiratory status closely
-
Hemodynamics:stable now off vasoactive drugs.
Tamayo in place, follow urinary output and renal function.
diuresis started.
-
Anemia: Status post 2 unit packed red blood cells and platelets
Monitor daily H&H. Currently stable.
Thrombocytopenia: Follow daily CBC
-
Chest tube in place: No excessive drainage. No air leak.
Chest x-ray 05/26/2024: Reviewed. No pneumothorax. No significant pleural effusion.
Daily chest x-ray
-
Glycemic control per protocol
-
Smoking cessation encouraged. Nicotine replacement.
Mild paraseptal emphysema on CAT scan, no lung nodules.
Mild airflow obstruction on spirometry.
-
Advance diet as able
Increase activity as able
-
DVT prophylaxis-SCDs. Eventual pharmacological prophylaxis
-
CCM will sign off. Please call if any resp. issues arise.
Subjective Dataa
Subjective Data
Date of Service:
Date of Service: May 26, 2024
Chief Complaint: Egyptologist Follow Up (s/p AVR and CAB)
Subjective:
No overnight events.
c/o hand swelling.
Denies SOB
Pain manageable
Review of Systems
General: Fever (n)
Cardiopulmonary: Dyspnea (none at rest)
GI: Abdominal Pain (n), Nausea (n) and Vomiting
Neuro: Headache (n)
Objective Data
Data Reviewed
Vital Signs / I&O / Oxygen:
Vital Signs
Temp Pulse Resp BP Pulse Ox
98.6 F 112 18 124/52 96
05/26/24 07:55 05/26/24 09:00 05/26/24 07:55 05/26/24 08:51 05/26/24 07:55
Intake and Output
05/25/24 05/26/24 05/27/24
06:59 06:59 06:59
Intake Total 1813.1 / 1813.1 1922.6 / 1922.6 220 / 220
Output Total 1740 / 1740 1590 / 1590 80 / 80
Balance 73.1 / 73.1 332.6 / 332.6 140 / 140
SaO2 [CPAP] 99
SaO2 [SIMV] 97
SaO2 96
Nasal Cannula flow liters per 2
minute
Physical Exam
General: Respiratory Distress (n) and Comfortable
HEENT: Normocephalic
Cardiovascular: S1-S2
Respiratory: Clear and Chest Tube (No airleak or excessive drainage. )
GI: Soft and Non Distended
Neurology: Awake
Labs/Micro/Reports
Lab Data
05/26/24 04:15
05/26/24 04:15
[2024-05-26] MEDS: FLEXERIL 5 MG PO (11:40)
--- NOTE | 2024-05-26 12:00 | PTCARENOTE ---
No acute changes. Vitals stable. OOB to chair.
[2024-05-26] MEDS: REGLAN 10 MG IV ×2 (12:10→23:27)
--- NOTE | 2024-05-26 12:12 | CM ---
CM following for DC planning needs.
Pt. POD#2.
Plan is for home w/ CT Transitional Care RN.
CM to follow.
[2024-05-26 14:22] LABS: Glucose - Point of Care 218 mg/dl (70-99)
[2024-05-26] MEDS: TYLENOL PO (15:50)
[2024-05-26] MEDS: PACERONE 200 MG PO (16:31)
[2024-05-26] MEDS: NOVOLOG FLEXPEN-MODERATE RESISTANCE 1 UNITS SC (18:47)
[2024-05-26] MEDS: NSS 500 IV (18:48)
[2024-05-26 18:50] LABS: Glucose - Point of Care 193 mg/dl (70-99)
[2024-05-26] MEDS: ZOFRAN 4 MG IV (19:04)
[2024-05-26] MEDS: LASIX 20 MG IV (20:11)
[2024-05-26] MEDS: KCL 20 MEQ PO (20:13)
[2024-05-26] MEDS: PACERONE 400 MG PO (20:41)
--- NOTE | 2024-05-26 21:41 | PTCARENOTE ---
Assumed care of patient @ 1900. Received pt sitting in chair, AOx3. Drowsy at times. At shift change, pt vomited up chicken which he stated was 'disgusting'. Pt denies nausea, stating it tasted very bad. Zofran given. No c/o pain at this time.
NSR/ST on monitor. V wire set to 40, 5, 2. +pulses, +1 lower extremity edema. Lungs clear, diminished on room air satting mid 90s. Belly hypoactive, occasionally belching. 20 IV lasix ordered by provider for UO, will follow voids. Sternal aquacel
with old drainage, L radial and R SVG WOLF, CT dressing CDI. R IJ cordis and PIV patent. Pt assisted back to bed. call kwon within reach .
--- NOTE | 2024-05-26 23:00 | PTCARENOTE ---
pt reassessed, unable to void. bladder scanned for 450. Notified CTPA Ed. Orders recieved for jenkins catheter for acute retention. Needs more diuresis. 16 Fr jenkins placed without issue, 450 mls deacon urine initial output. Placed on 2L for POX 88 %.
Reglan given for belching/nausea. No other changes in assessment . call kwon within reach .
[2024-05-27] VITALS (21 sets, daily range): BP systolic 58–152; BP diastolic 28–100; BMI 35.2
--- NOTE | 2024-05-27 03:14 | PTCARENOTE ---
pt stood to commode, had large liquid/loose BM and belching. states felt much better afterwards. pt back in bed resting comfortably. no other change in assessment. call kwon within reach.
[2024-05-27 03:16] LABS: Ionized Calcium 1.13 mMOL/L (1.15-1.33)
[2024-05-27 03:21] LABS: Hematocrit 21.5 % (39.0-52.0); Mean Corp Hgb Conc. 37.2 g/dL (33.0-37.0); Mean Corpuscular Hgb 31.1 pg (27.0-31.0); Mean Corpuscular Volume 83.7 fL (80.0-94.0); Mean Platelet Volume 10.8 fL (7.4-10.4); Platelet Count 111 10^3/uL (130-400); Red Blood Cell Count 2.57 10^6/uL (4.70-6.10); Red Cell Dist. Width 14.2 % (11.5-14.5); White Blood Cell Count 13.7 10^3/uL (4.8-10.8)
[2024-05-27 03:25] LABS: Blood Urea Nitrogen 54 mg/dl (9-20); Calcium 8.3 mg/dl (8.4-10.2); Carbon Dioxide 26 mmol/L (22-30); Chloride 97 mmol/L (98-107); Estimated Creatinine Clearance 90 ml/min; Glucose 154 mg/dl (70-99); Magnesium 2.3 mg/dl (1.6-2.3); Potassium 3.9 mmol/L (3.5-5.1); Sodium 128 mmol/L (135-145); eGFR > 60.00
--- NOTE | 2024-05-27 04:06 | W.PN.CT ---
Addendum entered and electronically signed by Juan Jose Briggs MD 05/27/24 09:22:
I saw and examined the patient.
The PA's note was reviewed and I agree with the note.
Comment:
POD#3 s/p AVR/CABG
N/V overnight & this AM; passing flatus, loose BM - abd exam benign - given Reglan - started ATC
Jenkins replaced for urinary retention overnight - home Flomax for known BPH - routine urology consultation
Continue diuresis (creat 1.1)
Continue norvasc for RA graft
ASA/plavix, BB, amio, zetia, crestor
D/C cordis
F/U ABX X-ray
OOB/IS/ambulate
Home 1-2 days
Original Note:
Today's Communication / Plan
-
Plan:
-No major issues overnight. Hemodynamically and neurologically intact
-C/O nausea/vomited x 2. Abdomen mildly distended, + BS, +flatus, +BM (loose stool). Will change Zofran to Reglan, minimize narcotics
-Postop urinary retention requiring jenkins reinsertion last night 05/26, scanned for > 450, diuresed overnight. Known BPH pt on Flomax @ home
-Will benefit from diuresis as wt is up 19 lbs from preop based on wt yesterday. Check wt today
-Monitor hyponatremia 128, was 134 yesterday and
-Monitor h/h 8.0/21.5, likely partially hemodiluted. Cont. diuresis. Transfuse if symptomatic
-Noted to have postop sinus tachycardia, will increase BB to 50mg BID today, will place Lisinopril on hold for now to make room for increased BB
-On Norvasc for Left radial graft
-Cont. current meds (ASA, Plavix, Lopressor, Amio, Crestor, Zetia, Protonix, Norvasc)
-D/C cordis
-Maintain temporary PW (will cut before d/c home)
-Encourage use of IS
-OOB into chair/Ambulate
-Home in 1-2 days
Assessment / Plan
-
Assessment:
-s/p AVR (#25 Inspiris); CABG x 3 (DARY to LAD, GSV to RI, L Radial artery to OM) on 05/24/[address] Briggs, pod #3
-required re-establishment of CPB w/ repeat cardioplegic arrest for significant venous bleeding laterally and Repair of myocardial & epicardial adipose bleeding w/ numerous pericardial & standard pledgetted sutures
-intraop SUSY: Valve was well seated w/ mean gradient 6mmHg. EF 60-65%, no wma. Nl RV fxn
-Severe 3v CAD
-USA
-Moderate-severe (MG 27 mmHg, MURIEL 0.9 cm2)
-MAC
-AAA (infrarenal, 4.3 cm)
-Hx CVA (embolic) S/P ILR, 03/2022
-Known b/l ICA stenosis (>70 per recent u/s), cleared for surgery by Vascular Surgery
-Active tobacco abuse (1.5 ppd x 40+ yrs)
-Severe PAD with claudication
-HTN
-HLD
-Prediabetes (A1C 6.2)
-Class 1 obesity (BMI 33)
-GERD
-BPH, on Flomax @ home
-S/P Elbow and ankle surgeries
-Acute postop blood loss anemia - s/p 2 pRBC
-Acute postop thrombocytopenia - s/p 2 units platelets
-Acute postop coagulopathy - s/p 1 FFP
-Acute postop atelectasis
-Acute postop hypovolemia with subsequent hypervolemia
-Acute postop NSVT - tx with Amio drip
-Acute postop urinary retention S/P jenkins reinsertion 05/26
-Acute postop hyponatremia, 128
-Acute postop sinus tachycardia
Discussed patient care with: Cardiology, Nursing, Respiratory Therapy, Pharmacy and Care Team
Subjective
Procedure
-s/p AVR (#25 Inspiris); CABG x 3 (DARY to LAD, GSV to RI, L Radial artery to OM) on 05/24/[address] Briggs
-
Date of Service: May 27, 2024
Pt c/o nausea and vomited x 2. Unable to void following discontinuation of jenkins and required reinsertion last night
Objective Data
-
Lab Results
05/27/24 02:57
05/27/24 02:57
PT 18.6 Sec (11.4-14.6) H 05/24/24 22:29
INR 1.54 05/24/24 22:29
APTT 33.4 Sec (23.4-35.0) 05/24/24 22:29
Vital Signs
Vital Signs
Temp Pulse Resp BP Pulse Ox
99.1 F 104 16 111/56 95
05/27/24 03:12 05/27/24 03:12 05/27/24 03:12 05/27/24 03:00 05/27/24 03:[address]
CT Intake/Output/Weight
05/26/24 05/26/24 05/27/24
06:59 18:59 06:59
Intake Total 900 / 1380 480 / 1380
Output Total 730 / 1590 80 / 530 450 / 530
Balance -730 / 332.6 820 / 850 30 / 850
SaO2: 95 (RA)
Physical Exam
-
General: Awake, Oriented and AOx3
Cardiovascular: Regular rate & rhythm, No Murmurs, No Rub and No Gallop
Respiratory: Decreased Breath Sounds
Sternum: Stable
Incision: Clean, Dry, Intact and Dressing Intact
Extremities: Edema +1
Data Reviewed
-
Lab Results: Results Reviewed
Medications: Active Meds Reviewed
Chest X-Ray: Report Reviewed and Image Reviewed
ECG: Report Reviewed and Image Reviewed
[2024-05-27] MEDS: CALCIUM CHLORIDE 10% SYRINGE 60 MG IV (05:20)
[2024-05-27] MEDS: LASIX 40 MG IV (05:23)
[2024-05-27] MEDS: TYLENOL PO ×3 (05:25→22:25)
[2024-05-27] MEDS: ZOFRAN 4 MG IV (06:23)
--- NOTE | 2024-05-27 07:00 | PTCARENOTE ---
Bedside walking rounds report received. Patient seen on rounds oob in chair on room air and tolerating well: belching with breakfast: increased abd distention: meds with sips of clears and stat abd x ray in dept ordered and done via transport on
stretcher: gastric distention and ileus confirmed small bowel. GI surgery consulted. ST at rest. Epicardial v wire insulated
--- NOTE | 2024-05-27 07:22 | PTCARENOTE ---
when getting pt OOB to chair, vomited 600 mls of green bile. zofran given. pt now in chair. call kwon within reach .
[2024-05-27 08:10] LABS: Glucose - Point of Care 187 mg/dl (70-99)
[2024-05-27] MEDS: ZETIA 10 MG PO (08:15)
[2024-05-27] MEDS: CRESTOR 40 MG PO (08:15)
[2024-05-27] MEDS: LOW STRENGTH ASPIRIN 81 MG PO (08:15)
[2024-05-27] MEDS: LYRICA 200 MG PO (08:15)
[2024-05-27] MEDS: PLAVIX 75 MG PO (08:15)
[2024-05-27] MEDS: PROTONIX 40 MG PO (08:15)
[2024-05-27] MEDS: FLOMAX 0.4 MG PO (08:16)
[2024-05-27] MEDS: FEOSOL 325 MG PO (08:16)
[2024-05-27] MEDS: MAGNESIUM OXIDE 500 MG PO (08:16)
[2024-05-27] MEDS: PACERONE 200 MG PO (08:16)
[2024-05-27] MEDS: LOPRESSOR 50 MG PO (08:16)
[2024-05-27] MEDS: NICODERM TRANSDERMAL 21 MG TRANSDERM (08:17)
[2024-05-27] MEDS: VITAMIN C 500 MG PO (08:17)
[2024-05-27] MEDS: NORVASC 2.5 MG PO (08:17)
[2024-05-27] MEDS: LIDOCAINE 4% PATCH 1 PATCH TOPICAL (08:17)
[2024-05-27] MEDS: SENOKOT-S PO (08:21)
[2024-05-27] MEDS: REGLAN 10 MG IV (08:21)
[2024-05-27] MEDS: KCL 50 IV (08:21)
[2024-05-27] MEDS: TYLENOL 1000 MG PO (08:22)
[2024-05-27] MEDS: BACTROBAN 2% OINTMENT 1 APPLIC NASAL ×2 (08:23→21:29)
[2024-05-27] MEDS: NOVOLOG FLEXPEN-MODERATE RESISTANCE 1 UNITS SC (08:23)
[2024-05-27] MEDS: ZESTRIL 5 MG PO (10:01)
--- NOTE | 2024-05-27 11:28 | CON.GS ---
Medical History
-
Chief Complaint: n/v
History of Present Illness:
Mr. Fay is a 63 yo male who is POD #3 AVR/CABG with no prior history of abdominal surgeries who is seen today in consult for nausea and vomiting. He notes that he has been passing some gas multiple loose, liquid stools. Last episode of vomiting
was early this am. He currently denies nausea but is having some intermittent belching. He appears uncomfortable but notes that its his legs that are bothering him and denies pain to his abdomen. He is nontender on abdominal exam, but distention is
noted.
Past Medical History
Past Medical History: CVA (TIA 2019/CVA 2021), GERD, HTN, Hypercholesterolemia, Valvular Disease and Other (BPH, PAD with BL carotid stenosis)
Past Surgical History: Cardiac (AVR/CABG 05/24/2024) and Orthopedic (right ankle, bilateral elbow)
Social History
Tobacco: Smoker (1.5ppd for >40years)
Alcohol: Occasional
Drug: Marijuana
Living: Alone
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
Family History
Family History: Cancer (lung)
Allergies / Home Medications
Allergy/AdvReac Type Severity Reaction Status Date / Time
No Known Allergies Allergy Verified 03/23/22 07:38
�Medication �Instructions �Recorded �Confirmed �Type
lisinopril 20 mg tablet 20 mg PO DAILY Blood pressure 06/05/20 05/17/24 History
aspirin 81 mg chewable tablet 81 mg PO DAILY 30 days #30 tabs 03/01/22 05/17/24 Rx
ezetimibe 10 mg tablet (Zetia) 10 mg PO DAILY 03/23/22 05/17/24 History
Prilosec OTC 40 mg PO DAILY PRN acid reflux 05/17/24 05/17/24 History
ciprofloxacin 2 drp RIGHT EYE QID 05/17/24 05/17/24 History
metoprolol succinate 25 mg 25 mg PO DAILY 05/17/24 05/17/24 History
tablet,extended release 24 hr
pregabalin 200 mg capsule 200 mg PO DAILY 05/17/24 05/17/24 History
rosuvastatin 40 mg tablet 40 mg PO DAILY 05/17/24 05/17/24 History
tamsulosin 0.4 mg capsule (Flomax) 0.4 mg PO DAILY 05/17/24 05/17/24 History
Review of Systems
-
A 10 point review of systems was completed, and was negative except as per HPI.
Physical Exam
Vital Signs
Temp Pulse Resp BP Pulse Ox
99.1 F 101 16 117/48 97
05/27/24 03:12 05/27/24 07:45 05/27/24 03:12 05/27/24 08:00 05/27/24 08:00
05/26/24 05/27/24 05/28/24
06:59 06:59 06:59
Actual Weight 117.6 kg
Body Mass Index (BMI) 35.2
Lab Results
05/27/24 02:57
05/27/24 02:57
WBC 13.7 10^3/uL (4.8-10.8) H 05/27/24 02:57
Hgb 8.0 g/dL (13.0-18.0) L 05/27/24 02:57
Hct 21.5 % (39.0-52.0) L 05/27/24 02:57
Plt Count 111 10^3/uL (130-400) L 05/27/24 02:57
Abs Immat Gran (auto) 0.0 10^3/uL (0-0.05) 05/24/24 00:10
Neutrophils % 46.3 % (42.2-75.2) 05/24/24 00:10
Physical Exam
General: No Apparent Distress; Negative Comfortable
HEENT: Normocephalic
Respiratory: Non Labored Respirations
GI: Soft, Non Tender and Distended
Skin: Warm
Neuro: Awake, Alert and AO x 3
Psych: Calm
Assessment / Plan
-
63 yo male without prior h/o abdominal surgeries who is POD #3 CABG/AVR seen in evaluation for n/v and abdominal distention. No n/v since earlly this am but still with bloating and belching. XR this am reviewed with significant widespread distention
consistent with ileus. Mild leukocytosis. Afebrile, intermittent mild tachycardia with stable bp.
--Make NPO
--Place NGT if nausea/vomiting recur and place to suction
--OOB/Ambulate as able
--PRN zofran 4mg. D/C reglan.
--Hold laxatives
Medical management as per primary team
--- NOTE | 2024-05-27 13:25 | W.PN.CD ---
Today's Communication / Plan
-
ASA, Plavix, statin
trend tele
eval for ileus
Impression / Plan
-
Impression/Plan: 63 y/o male admitted with PAD, AAA, CHRIS and moderate/severe admitted with unstable angina and a markedly abnormal stress test, found to have multivessel CAD.
#CAD: unstable angina
-Abnormal stress test 05/17/24 with anterior ischemia and TID.
-Multivessel coronary artery disease on cardiac catheterization.
-S/P 3V CABG (pedicled SANTANA to LAD, LRA to OM, SVG to RI) with Dr. Briggs, 05/24/2025.
-ASA/Plavix
#Moderate to severe aortic stenosis
-Chronic, stable.
-S/P #25 Strickland Inspiris SAVR (SN [id number]) with Dr. Briggs, 05/24/2025.
#HTN
-trend as he recovers from OR
-cont metoprolol and lisinopril
#HLD
-Chronic, stable.
-Total cholesterol = 102, LDL = 39, HDL = 48, VLDL = 15, triglycerides = 79.
-Continue rosuvastatin 40 mg daily and ezetimibe 10 mg daily.
#PAD/CHRIS
-Chronic, stable to mildly progressive.
-Bilateral >70% carotid artery stenosis, likely overcalled on Duplex compared to CTA. Vascular surgery does not feel carotid revasc needed preop.
-AAA 4.[address] in 2021. AAA will be followed with serial imaging
-Also noted severe R SFA stenosis with claudication. This will be managed outpatient.
#Hx of CVA
-Suspected embolic, 2021.
-ILR in place, no Afib.
-No new neuro symptoms.
Subjective/Interval History:
Now with n/v, and being evaluated for ileus.
DATA:
Abdominal US, 05/19/2024:
IMPRESSION: Fusiform infrarenal abdominal aortic aneurysm measuring up to 4.3 cm in diameter, no significant interval increase in size as compared with CT of July 2022.
Carotid Duplex, 05/19/2024:
IMPRESSION: By velocity criteria, there is greater than 70% stenosis of the bilateral internal carotid arteries. Peak systolic velocity slightly decreased on the right as compared with prior, 292 cm/s versus 304 cm/s prior. Peak systolic velocity
increased on the right as compared with prior, 485 cm/s as compared with 241 cm/s prior.
YUMIKO, 05/19/2024:
IMPRESSION:
1. Right ankle brachial index of 0.82 is improved as compared with 0.65 prior. Toe brachial index of 0.43, slightly improved from 0.34 prior. Common femoral waveform is multiphasic, but somewhat dampened suggesting probable inflow disease. There
is a moderate stenosis of the profunda femoral artery. There is a severe stenosis of the mid right superficial femoral artery.
2. Left ankle-brachial index of 0.79 is slightly decreased from 0.91 prior. Within the mild claudication range. The toe brachial index of 0.44 is without significant change from 0.45 prior. No signs of inflow disease on the left. There is a
moderate profunda femoral stenosis. Waveforms remain multiphasic to the popliteal, with dampened Doppler waveforms at the ankle consistent with the presence of infrapopliteal small vessel disease.
Cardiac Catheterization, 05/18/2024:
CONCLUSIONS
1. Right dominant circulation with CORRECTIONAL CASE RECORDS SUPERVISOR of the proximal RCA, a cloacal left main coronary artery with an occlusive ostial 70+ percent lesion (IFR = 0.80), a 60% lesion in the distal LAD (IFR = 0.54), a 70% lesion in the ostium of the circumflex
followed by an 80% lesion in the mid vessel, and a 90% lesion in the ostium of the large nondominant circumflex.
2. Normal filling pressures (LVEDP = 12 mmHg at 108.9 kg).
3. Probably moderate to severe aortic valve stenosis (mean gradient 34.75 mmHg).
TTE, 05/18/2024:
CONCLUSIONS
1. Normal LV size with inferobasal akinesis and inferior hypokinesis. LVEF 55-60%.
2. MAC.
3. Moderate to severe with mean gradient 27mm Hg, MURIEL 0.9cm2.
4. Compared with study, has progressed.
Physical Exam
Vital Signs/Labs
Vital Signs
Temp Pulse Resp BP Pulse Ox
98.2 F 80 20 110/56 94
05/27/24 11:28 05/27/24 12:45 05/27/24 11:28 05/27/24 11:28 05/27/24 11:28
05/26/24 05/27/24 05/28/24
06:59 06:59 06:59
Actual Weight 117.6 kg
05/27/24 02:57
05/27/24 02:57
PT 18.6 Sec (11.4-14.6) H 05/24/24 22:29
INR 1.54 05/24/24 22:29
APTT 33.4 Sec (23.4-35.0) 05/24/24 22:29
Magnesium 2.3 mg/dl (1.6-2.3) 05/27/24 02:57
Triglycerides 79 mg/dl (10-149) 05/18/24 06:13
LDL Cholesterol, Calc 39 mg/dl 05/18/24 06:13
VLDL Cholesterol, Calc 15 mg/dl (0-30) 05/18/24 06:13
HDL Cholesterol 48 mg/dl 05/18/24 06:13
Physical Exam
Constitutional: No acute distress
EENT: Moist mucous membranes
Cardiovascular: Rhythm & rate is regular, Systolic murmur absent, Pedal edema present and JVD present
Respiratory: Respiratory effort normal and Lungs clear to auscul.
GI: Distention present
Neuro/Psych: AO x 3
Data Reviewed
-
Date of Service: May 27, 2024
EKG: Other (tele: / 95-105)
Labs: Labs Reviewed by me
--- NOTE | 2024-05-27 13:25 | CONS.URO ---
Consultation
-
Performing Provider: Kevonfer
Reason for Consultation: Urinary retention
Medical History
History of Present Illness
63M hx of BPH on tamsulosin
s/p CABG currently with post op ileus and found to have urinary retention with 450cc after jenkins removed 05/26
Jenkins replaced
Patient currently poor historian but claims to not see a urologist or have prior hx of retention issues
Urology consulted for retention
Past Medical History
Past Medical History: CAD and Other (BPH)
Past Surgical History: Cardiac
Social History
Unable to obtain full social history at this time due to: Other (somnolent)
Family History
Family History: Reviewed & Not Pertinent
Allergies/Home Medications
Allergies
Allergy/AdvReac Type Severity Reaction Status Date / Time
No Known Allergies Allergy Verified 03/23/22 07:38
Home Medications
�Medication �Instructions �Recorded �Confirmed �Type
lisinopril 20 mg tablet 20 mg PO DAILY Blood pressure 06/05/20 05/17/24 History
aspirin 81 mg chewable tablet 81 mg PO DAILY 30 days #30 tabs 03/01/22 05/17/24 Rx
ezetimibe 10 mg tablet (Zetia) 10 mg PO DAILY 03/23/22 05/17/24 History
Prilosec OTC 40 mg PO DAILY PRN acid reflux 05/17/24 05/17/24 History
ciprofloxacin 2 drp RIGHT EYE QID 05/17/24 05/17/24 History
metoprolol succinate 25 mg 25 mg PO DAILY 05/17/24 05/17/24 History
tablet,extended release 24 hr
pregabalin 200 mg capsule 200 mg PO DAILY 05/17/24 05/17/24 History
rosuvastatin 40 mg tablet 40 mg PO DAILY 05/17/24 05/17/24 History
tamsulosin 0.4 mg capsule (Flomax) 0.4 mg PO DAILY 05/17/24 05/17/24 History
Physical Exam
Vital Signs
Vital Signs
Temp Pulse Resp BP Pulse Ox
98.2 F 80 20 110/56 94
05/27/24 11:28 05/27/24 12:45 05/27/24 11:28 05/27/24 11:28 05/27/24 11:28
Lab / Testing Results
Laboratory Results
05/27/24 02:57
05/27/24 02:57
Physical Exam
General: Well Developed, Well Nourished and No Apparent Distress
Respiratory: Clear and Non Labored Respirations
GI: Soft and Non Tender
Genito-urinary: Clear Urine and Jenkins Catheter
Neuro: AO x 3
Psych: Other (Somnolent, flat affect)
Assessment / Plan
-
63M hx of BPH with post op urinary retention
- Continue tamsulosin
- Maintain jenkins until ambulatory, ileus resolved, nearing discharge, and functional status closer to baseline
- Trial of void early AM expected day of discharge
- Replace jenkins if retention persists and follow up outpatient for further eval
--- NOTE | 2024-05-27 14:02 | CHAP ---
Mr. Fay was welcoming - he said, 'Horrible,' when asked how he was doing. He is finding his hospital stay very long. Emotional and spiritual support provided.
--- NOTE | 2024-05-27 15:30 | PTCARENOTE ---
Assisted patient back to bed. Right IJ cordis dc. Noted increased weakness and grogginess and increased abdominal distention/denies nausea and still belching. CORDELL Villarreal made aware. New orders. NGT right nares inserted and placement confirmed via
gastric bubble and cxr. Dr. Briggs at bedside. New stat orders received for labs. NSR. Room air. NGT to LCWS and draining small amount of bilious drainage. New IV established via right ac by staff toxicologist. See flowrecord for remaining assessments.
[2024-05-27] MEDS: NOVOLOG FLEXPEN-MODERATE RESISTANCE SC ×2 (16:19→18:06)
[2024-05-27 16:21] LABS: Glucose - Point of Care 140 mg/dl (70-99)
--- NOTE | 2024-05-27 16:53 | W.PN.UPDATE ---
Update Note
Progress Note Update
CARDIAC SURGERY ATTENDING:
Called by SHERIE secondary to concerns of worsening abdominal distention and increase somnolence. NGT placed at bedside w/o significant return, placed on LCWS. On my exam, abdomen is more distended but not firm. There is no rebound, guarding, or
other peritoneal signs. He had only minor TTP in his RLQ. On direct questioning, he is ACO x 3/GCS 3 w/ c/o lower back pain and leg pains. He is neurovascularly intact. He has pasted no flatus today, and had a mucoid bowel movement w/ some
flatus this AM per RN report. I have ordered a full panel of repeat laboratory assessments (ABG, BMP, LFTs, A/L, Lactate, CBC). I will reach out to my general surgery colleagues to see if we want to proceed with additional imaging (CT-A/P w/
PO/IV) at present or observe for a period w/ NGT decompression and serial abdominal assessments.
A/P: Likely postoperative ileus vs. partial SBO
- Review LABS
- Continue NGT to LCWS
- Serial abdominal exams
- Re-discuss case w/ general surgery (+/- CT-A/P)
[2024-05-27 16:57] LABS: % Basophils 0.1 % (0-2); % Eosinophils 0.1 % (0-6); % Immature Granulocytes 0.4 % (0-0.5); % Lymphocytes 8.4 % (20.5-51.1); % Monocytes 11.6 % (1.7-9.3); % Neutrophils 79.4 % (42.2-75.2); Absolute Immature Granulocytes 0.1 10^3/uL (0-0.05); Absolute Lymphocytes 1.1 10^3/uL (1.2-3.4); Absolute Monocytes 1.5 10^3/uL (0.1-0.6); Absolute Neutrophils 10.2 10^3/uL (1.4-6.5); Hematocrit 23.9 % (39.0-52.0); Hemoglobin 8.4 g/dL (13.0-18.0); Mean Corp Hgb Conc. 35.1 g/dL (33.0-37.0); Mean Corpuscular Hgb 31.1 pg (27.0-31.0); Mean Corpuscular Volume 88.5 fL (80.0-94.0); Mean Platelet Volume 10.9 fL (7.4-10.4); Nucleated Red Blood Cells % 0.3 % (-); Platelet Count 119 10^3/uL (130-400); Red Cell Dist. Width 14.1 % (11.5-14.5); White Blood Cell Count 12.9 10^3/uL (4.8-10.8)
[2024-05-27 17:07] LABS: Ammonia < 9 umol/L (9-30); INR 1.11; PT 14.1 Sec (11.4-14.6)
[2024-05-27 17:07] LABS: Lactic Acid 2.4 mmol/L (0.7-2.0)
[2024-05-27 17:08] LABS: APTT 28.8 Sec (23.4-35.0)
[2024-05-27 17:13] LABS: B.E. 4.7 mmol/L; HCO3 27.8 mmol/L (21-28); O2 Saturation % 95.7 % (94-98); PCO2 34 mmHg (35-48); PO2 65 mmHg (83-108); pH 7.52 (7.35-7.45)
[2024-05-27 17:22] LABS: ALT (SGPT) 50 U/L (0-50); AST (SGOT) 121 U/L (17-59); Albumin 3.3 g/dl (3.5-5.0); Alkaline Phosphatase 52 U/L (38-126); Amylase 63 U/L (30-110); Blood Urea Nitrogen 65 mg/dl (9-20); Calcium 9.1 mg/dl (8.4-10.2); Carbon Dioxide 28 mmol/L (22-30); Chloride 95 mmol/L (98-107); Direct Bilirubin 0.1 mg/dl (0.0-0.4); Estimated Creatinine Clearance 62 ml/min; Glucose 123 mg/dl (70-99); LDH 626 U/L (120-246); Lipase 88 U/L (23-300); Potassium 4.1 mmol/L (3.5-5.1); Sodium 128 mmol/L (135-145); Total Bilirubin 0.9 mg/dl (0.2-1.3); Total Protein 5.5 g/dl (6.3-8.2); eGFR 47.82
[2024-05-27] MEDS: NSS 1000 IV (17:30)
--- NOTE | 2024-05-27 18:00 | PTCARENOTE ---
No acute changes. Vitals stable. Denies pain. More alert than previous. NGT draining bilious green drainage.
[2024-05-27] MEDS: PACERONE PO (18:06)
--- NOTE | 2024-05-27 20:24 | PTCARENOTE ---
assumed care of patient @ 1900. received pt laying in chair, AOx3. Very groggy this evening. No c/o pain or nausea. NSR on tele HR 80s. BP soft. +1 LE edema b/l. V wire insulated. Lungs diminished, placed on 4L for pox in 80s. 18 FR [place] sump
present in R nare to 80mm continuous suction. green bilious output. 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 CT dressing CDI. PIV x2 in R arm patent. Pt boosted, repositioned. resting comfortably with call kwon within reach .
[2024-05-27] MEDS: LOPRESSOR PO (21:29)
[2024-05-27] MEDS: LOPRESSOR 2.5 MG IV (21:30)
[2024-05-27] MEDS: OFIRMEV 100 IV (21:31)
--- NOTE | 2024-05-27 23:55 | PTCARENOTE ---
pt resting comfortably, no change in assessment .
[2024-05-28] VITALS (45 sets, daily range): BP systolic 58–152; BP diastolic 40–121; BMI 35.2
[2024-05-28 02:49] LABS: Hematocrit 20.4 % (39.0-52.0); Hemoglobin 7.3 g/dL (13.0-18.0); Mean Corp Hgb Conc. 35.8 g/dL (33.0-37.0); Mean Corpuscular Hgb 30.2 pg (27.0-31.0); Mean Corpuscular Volume 84.3 fL (80.0-94.0); Mean Platelet Volume 10.4 fL (7.4-10.4); Platelet Count 126 10^3/uL (130-400); Red Blood Cell Count 2.42 10^6/uL (4.70-6.10); Red Cell Dist. Width 14.1 % (11.5-14.5); White Blood Cell Count 6.9 10^3/uL (4.8-10.8)
--- NOTE | 2024-05-28 03:00 | PTCARENOTE ---
CTPA notified of critical hematocrit. IVF stopped as well per CTPA.
[2024-05-28 03:01] LABS: Lactic Acid 1.1 mmol/L (0.7-2.0)
[2024-05-28 03:02] LABS: Blood Urea Nitrogen 77 mg/dl (9-20); Calcium 8.5 mg/dl (8.4-10.2); Carbon Dioxide 26 mmol/L (22-30); Chloride 98 mmol/L (98-107); Estimated Creatinine Clearance 71 ml/min; Glucose 122 mg/dl (70-99); Magnesium 2.8 mg/dl (1.6-2.3); Potassium 3.9 mmol/L (3.5-5.1); Sodium 130 mmol/L (135-145); eGFR 56.13
--- NOTE | 2024-05-28 04:00 | PTCARENOTE ---
pt resting comfortably, no change in assesment .
--- NOTE | 2024-05-28 04:57 | W.PN.CT ---
Addendum entered and electronically signed by Juan Jose Briggs MD 05/28/24 11:25:
I saw and examined the patient.
The PA's note was reviewed and I agree with the note.
Comment:
POD#4 s/p CABG x 3/AVR
Postoperative Ileus remains. +Flatus/no BM. Remains distended w/ NGT - NGT 500 since placement - CT A/P c/w ileus, doubt SBO
- Transfuse 1U PRBC - resume IVF post transfusion
- Maintain NPO/NGT to LCWS; serial abdominal exams
- Maintain jenkins
- OOB/ok to ambulate w/ NGT clamped briefly/IS
- Awaiting resolution of ileus
- Continue current medications
Original Note:
Today's Communication / Plan
-
Plan:
-No major issues overnight. Hemodynamically and neurologically intact
-Pt with postop ileus, currently NPO with NGT to suction. Bowel distention improving, pt feeling better. Cont. to avoid narcotics, encourage ambulation. Appreciate GI's input
-Was on IV fluids given ileus and elevated lactic acid, held this AM as pt is fluid overloaded and lactic acid back to normal (2.4 -> 1.1)
-H/h 7.3/20.4 this AM, likely d/t IV fluids. Check wt this AM. Consider transfusion if symptomatic
-Postop urinary retention requiring jenkins reinsertion the night of 05/26. Leave jenkins with voiding trial the AM of discharge per Urology. Pt with known BPH pt on Flomax @ home
-Monitor hyponatremia 130
-Noted to have postop sinus tachycardia, BB transitioned to IV with parameters. Amiodarone on hold given ileus. Lisinopril is on hold given ROZINA, cr 1.4 (0.7 -> 1.1 -> 1.6 -> 1.4)
-On Norvasc for Left radial graft
-Cont. current meds (ASA, Plavix, Lopressor, Crestor, Zetia, Protonix, Norvasc)
-F/U 2-view cxr
-Maintain temporary PW (will cut before d/c home)
-Encourage use of IS
-OOB into chair/Ambulate
-Home likely in 2 days (Wednesday)
Pt noted to be dizzy this AM @ 0630 after getting OOB into chair. Will consider blood transfusion
Assessment / Plan
-
Assessment:
-s/p AVR (#25 Inspiris); CABG x 3 (DARY to LAD, GSV to RI, L Radial artery to OM) on 05/24/[address] Briggs, pod #4
-required re-establishment of CPB w/ repeat cardioplegic arrest for significant venous bleeding laterally and Repair of myocardial & epicardial adipose bleeding w/ numerous pericardial & standard pledgetted sutures
-intraop SUSY: Valve was well seated w/ mean gradient 6mmHg. EF 60-65%, no wma. Nl RV fxn
-Severe 3v CAD
-USA
-Moderate-severe (MG 27 mmHg, MURIEL 0.9 cm2)
-MAC
-AAA (infrarenal, 4.3 cm)
-Hx CVA (embolic) S/P ILR, 03/2022
-Known b/l ICA stenosis (>70 per recent u/s), cleared for surgery by Vascular Surgery
-Active tobacco abuse (1.5 ppd x 40+ yrs)
-Severe PAD with claudication
-HTN
-HLD
-Prediabetes (A1C 6.2)
-Class 1 obesity (BMI 33)
-GERD
-BPH, on Flomax @ home
-S/P Elbow and ankle surgeries
-Acute postop blood loss anemia - s/p 2 pRBC
-Acute postop thrombocytopenia - s/p 2 units platelets
-Acute postop coagulopathy - s/p 1 FFP
-Acute postop atelectasis
-Acute postop hypovolemia with subsequent hypervolemia
-Acute postop NSVT - tx with Amio drip
-Acute postop urinary retention S/P jenkins reinsertion 05/26
-Acute postop hyponatremia, 128
-Acute postop sinus tachycardia
-Acute postop paralytic ileus
-Acute postop ROZINA
Discussed patient care with: Cardiology, Nursing, Respiratory Therapy, Pharmacy and Care Team
Subjective
Procedure
-s/p AVR (#25 Inspiris); CABG x 3 (DARY to LAD, GSV to RI, L Radial artery to OM) on 05/24/[address] Briggs
-
Date of Service: May 28, 2024
Pt c/o mild incisional pain, denies abdominal pain, feels better
Objective Data
-
Lab Results
05/28/24 02:34
05/28/24 02:34
PT 14.1 Sec (11.4-14.6) 05/27/24 16:46
INR 1.11 05/27/24 16:46
APTT 28.8 Sec (23.4-35.0) 05/27/24 16:46
Vital Signs
Vital Signs
Temp Pulse Resp BP Pulse Ox
98.6 F 95 18 111/58 94
05/28/24 03:59 05/28/24 03:59 05/28/24 03:59 05/28/24 03:00 05/28/24 03:59
CT Intake/Output/Weight
05/27/24 05/27/24 05/28/24
06:59 18:59 06:59
Intake Total 480 / 1380 320 / 860 540 / 860
Output Total 1050 / 1130 1050 / 1725 675 / 1725
Balance -570 / 250 -730 / -865 -135 / -865
SaO2: 94 (2L)
Physical Exam
-
General: Awake, Oriented and AOx3
Cardiovascular: Regular rate & rhythm, No Murmurs, No Rub and No Gallop
Respiratory: Decreased Breath Sounds
Sternum: Stable
Incision: Clean, Dry, Intact and Dressing Intact
Extremities: Edema +1
Data Reviewed
-
Lab Results: Results Reviewed
Medications: Active Meds Reviewed
Chest X-Ray: Report Reviewed and Image Reviewed
ECG: Report Reviewed and Image Reviewed
[2024-05-28] MEDS: ZOFRAN 4 MG IV (06:24)
--- NOTE | 2024-05-28 06:47 | PTCARENOTE ---
pt stood to scale and to chair. upon ambulation, pt complained of nausea and not feeling well, dizzy. BP 80s, recovered to 100s quickly. Dr Stone in to see patient. Stevie ray
[2024-05-28] MEDS: TYLENOL PO ×3 (07:07→22:34)
[2024-05-28] MEDS: NSS IV (07:07)
[2024-05-28] MEDS: NOVOLOG FLEXPEN-MODERATE RESISTANCE SC ×3 (07:16→18:12)
--- NOTE | 2024-05-28 07:37 | W.PN.GS2 ---
Today's Communication / Plan
-
CT scan of the abdomen pelvis with IV contrast to rule out obstruction and/or ischemia. Oral contrast is unlikely to be helpful due to the ileus.
Maintain the NG tube for now.
CT surgery team aware of the plan.
Transfuse as per CT surgery.
Assessment / Plan
-
POD#4 s/p AVR/CABG with abdominal distention, most likely due to a probable ileus.
He is complaining of more pain this am although his white count has normalized as well as his lactate (which was slightly elevated last night). His hemoglobin is 7.3 g/dL and his BUN is 77 and creatinine 1.4.
Subjective Data
-
Date of Service: May 28, 2024
Currently sitting in the chair complaining of more abdominal pain that is poorly localized. He has not passed any flatus or stool.
Objective Data
-
Intake and Output
05/27/24 05/28/24 05/29/24
06:59 06:59 06:59
Intake Total 1380 / 1380 860 / 860
Output Total 1130 / 1130 1725 / 1725
Balance 250 / 250 -865 / -865
Intake:
Oral fluids 1280 / 1280 200 / 200
IV fluids (Total) 100 / 100 520 / 520
0.9% NS Cordis 100 / 100 20 / 20
nss\\ 500 / 500
IV piggybacks 50 / 50
Amount instilled into GI Tube ( 90 / 90
Total)
[place] Sump 90 / 90
Output:
Emesis 600 / 600
Multi-Chest Tube to Single 80 / 80
Drain Output
Mediastinal x2 35 / 35
Right Pleural Left Pleural 45 / 45
Gastrointestinal tube output ( 275 / 275
Total)
[place] Sump 275 / 275
Urine, Tamayo 450 / 450 1450 / 1450
Urine, Voided 0 / 0
Other:
Number of approximated SMALL 1
amounts of urine
Vital Signs
Temp Pulse Resp BP Pulse Ox
98.6 F 95 18 111/58 94
05/28/24 03:59 05/28/24 03:59 05/28/24 03:59 05/28/24 03:00 05/28/24 05:00
Lab Results
05/28/24 02:34
05/28/24 02:34
Calcium 8.5 mg/dl (8.4-10.2) 05/28/24 02:34
Magnesium 2.8 mg/dl (1.6-2.3) H 05/28/24 02:34
Total Bilirubin 0.9 mg/dl (0.2-1.3) 05/27/24 16:46
Direct Bilirubin 0.1 mg/dl (0.0-0.4) 05/27/24 16:46
AST 121 U/L (17-59) H 05/27/24 16:46
ALT 50 U/L (0-50) 05/27/24 16:46
Alkaline Phosphatase 52 U/L (38-126) 05/27/24 16:46
Total Protein 5.5 g/dl (6.3-8.2) L 05/27/24 16:46
Albumin 3.3 g/dl (3.5-5.0) L 05/27/24 16:46
Physical Exam
-
NAD
Abd: distended with no significant tenderness
--- NOTE | 2024-05-28 08:00 | PTCARENOTE ---
resumed care of patient from prev RN. AAOx3. drowsy. OOB in chair at time of assessment. No c/o pain or nausea but states he just feels horrible. NSR/ST on tele HR 80s-100s. VSS. V wire insulated. +2 upper and lower extrem edema. Pulse ox 98% on 2L
nc. lungs diminished but clear. tachypneic. [place] sump in R nare to continuous suction. brown/green bilious output. All surgical sites c/d/i. PIV x2 patent. will continue to monitor.
[2024-05-28] MEDS: NSS (PRESERVATIVE FREE) 10 ML IV (08:32)
[2024-05-28] MEDS: NICODERM TRANSDERMAL 21 MG TRANSDERM (08:32)
[2024-05-28] MEDS: BACTROBAN 2% OINTMENT 1 APPLIC NASAL (08:33)
[2024-05-28] MEDS: PROTONIX IV 40 MG IV (08:33)
[2024-05-28] MEDS: KCL 50 IV (08:33)
[2024-05-28] MEDS: FLOMAX 0.4 MG PO (08:38)
[2024-05-28] MEDS: LOW STRENGTH ASPIRIN 81 MG PO (08:38)
[2024-05-28] MEDS: PLAVIX 75 MG PO (08:38)
[2024-05-28] MEDS: LIDOCAINE 4% PATCH TOPICAL (08:39)
--- NOTE | 2024-05-28 08:54 | W.PN.CD ---
Today's Communication / Plan
-
trend tele
NG tube for ileus per surgery
move metoprolol to IV
Impression / Plan
-
Impression/Plan: 63 y/o male admitted with PAD, AAA, CHRIS and moderate/severe admitted with unstable angina and a markedly abnormal stress test, found to have multivessel CAD.
# Ileus
-now with NG tube, and moving some meds to IV
-plan per surgery
#CAD: unstable angina
-Abnormal stress test 05/17/24 with anterior ischemia and TID.
-Multivessel coronary artery disease on cardiac catheterization.
-S/P 3V CABG (pedicled SANTANA to LAD, LRA to OM, SVG to RI) with Dr. Briggs, 05/24/2025.
-ASA/Plavix
#Moderate to severe aortic stenosis
-Chronic, stable.
-S/P #25 Strickland Inspiris SAVR (SN [id number]) with Dr. Briggs, 05/24/2025.
#HTN
-trend as he recovers from OR
-IV metoprolol given ileus
#HLD
-Chronic, stable.
-Total cholesterol = 102, LDL = 39, HDL = 48, VLDL = 15, triglycerides = 79.
-holding rosuvastatin 40 mg daily and ezetimibe 10 mg daily due to ileus
#PAD/CHRIS
-Chronic, stable to mildly progressive.
-Bilateral >70% carotid artery stenosis, likely overcalled on Duplex compared to CTA. Vascular surgery does not feel carotid revasc needed preop.
-AAA 4.[address] in 2021. AAA will be followed with serial imaging
-Also noted severe R SFA stenosis with claudication. This will be managed outpatient.
#Hx of CVA
-Suspected embolic, 2021.
-ILR in place, no Afib.
-No new neuro symptoms.
Subjective/Interval History:
NG tube in place
DATA:
Abdominal US, 05/19/2024:
IMPRESSION: Fusiform infrarenal abdominal aortic aneurysm measuring up to 4.3 cm in diameter, no significant interval increase in size as compared with CT of July 2022.
Carotid Duplex, 05/19/2024:
IMPRESSION: By velocity criteria, there is greater than 70% stenosis of the bilateral internal carotid arteries. Peak systolic velocity slightly decreased on the right as compared with prior, 292 cm/s versus 304 cm/s prior. Peak systolic velocity
increased on the right as compared with prior, 485 cm/s as compared with 241 cm/s prior.
YUMIKO, 05/19/2024:
IMPRESSION:
1. Right ankle brachial index of 0.82 is improved as compared with 0.65 prior. Toe brachial index of 0.43, slightly improved from 0.34 prior. Common femoral waveform is multiphasic, but somewhat dampened suggesting probable inflow disease. There
is a moderate stenosis of the profunda femoral artery. There is a severe stenosis of the mid right superficial femoral artery.
2. Left ankle-brachial index of 0.79 is slightly decreased from 0.91 prior. Within the mild claudication range. The toe brachial index of 0.44 is without significant change from 0.45 prior. No signs of inflow disease on the left. There is a
moderate profunda femoral stenosis. Waveforms remain multiphasic to the popliteal, with dampened Doppler waveforms at the ankle consistent with the presence of infrapopliteal small vessel disease.
Cardiac Catheterization, 05/18/2024:
CONCLUSIONS
1. 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
followed by an 80% lesion in the mid vessel, and a 90% lesion in the ostium of the large nondominant circumflex.
2. Normal filling pressures (LVEDP = 12 mmHg at 108.9 kg).
3. Probably moderate to severe aortic valve stenosis (mean gradient 34.75 mmHg).
TTE, 05/18/2024:
CONCLUSIONS
1. Normal LV size with inferobasal akinesis and inferior hypokinesis. LVEF 55-60%.
2. MAC.
3. Moderate to severe with mean gradient 27mm Hg, MURIEL 0.9cm2.
4. Compared with study, has progressed.
Physical Exam
Vital Signs/Labs
Vital Signs
Temp Pulse Resp BP Pulse Ox
98.6 F 95 18 111/58 94
05/28/24 03:59 05/28/24 03:59 05/28/24 03:59 05/28/24 03:00 05/28/24 05:00
05/27/24 05/28/24 05/29/24
06:59 06:59 06:59
Actual Weight 117.6 kg 117.7 kg
05/28/24 02:34
05/28/24 02:34
PT 14.1 Sec (11.4-14.6) 05/27/24 16:46
INR 1.11 05/27/24 16:46
APTT 28.8 Sec (23.4-35.0) 05/27/24 16:46
Magnesium 2.8 mg/dl (1.6-2.3) H 05/28/24 02:34
Triglycerides 79 mg/dl (10-149) 05/18/24 06:13
LDL Cholesterol, Calc 39 mg/dl 05/18/24 06:13
VLDL Cholesterol, Calc 15 mg/dl (0-30) 05/18/24 06:13
HDL Cholesterol 48 mg/dl 05/18/24 06:13
Physical Exam
Constitutional: Other (NG tube in place, appears uncomfortable)
EENT: Moist mucous membranes
Cardiovascular: Rhythm & rate is regular, Systolic murmur absent, Pedal edema present and JVD present
Respiratory: Respiratory effort normal
GI: Distention present
Neuro/Psych: Oriented
Data Reviewed
-
Date of Service: May 28, 2024
EKG: Other (Tele: SR 80s)
Labs: Labs Reviewed by me
[2024-05-28] MEDS: NORVASC 2.5 MG PO (09:44)
[2024-05-28] MEDS: LOPRESSOR 2.5 MG IV ×6 (09:45→22:33)
--- NOTE | 2024-05-28 12:22 | PTCARENOTE ---
sent via stretcher for xray and CT scan of abd. post return, unit PRBCs started as ordered. patient very drowsy and remains assist x1-2 due to weakness
--- NOTE | 2024-05-28 13:00 | PTCARENOTE ---
Report received at bedside. Patient seen on rounds resting in bed: 1 unit PRBC infusing via gravity into Right ac PIV without reaction noted. NSR to ST on monitor. Oriented x 3. Denies pain except for lower back. Repositioned. 2L nasal canula. NGT
to low continuous wall suction and patent for bilious green brownish drainage. Actve bowel sounds auscultated. Temp epicardial v wire insulated and secured with medtronic box readily accesible in room. See flowrecord for remaining assessments. Tamayo
catheter remains and patent for clear yellow drainage.
[2024-05-28] MEDS: NSS 1000 IV (13:57)
--- NOTE | 2024-05-28 14:00 | PTCARENOTE ---
1 unit prbc finished without reaction. Cherelle Jhonatan aware and new orders noted to resume IVF nss at 50ml/hr.
--- NOTE | 2024-05-28 15:30 | PTCARENOTE ---
Patient was partially incontinent for large liquidy brown BM. Perineal cleansing: remedy moisturizing ointment applied. Assisted oob to chair with assist of 2: improved mentation and alertness compared to previous day. OOB encouraged until tonight
when ready for bed. Bedside commode readily available at bedside.
--- NOTE | 2024-05-28 17:18 | PTCARENOTE ---
Patient went into a fibb with rates in the 130's to 140's. Cherelle Gonzalez PA-c aware of same. New orders received. BP with afibb is 91/61: will give metropolol IV 2.5mg and initiate amiodarone bolus and gtt when new PIV established per protocol
[2024-05-28] MEDS: CORDARONE 103 MG IV (18:41)
[2024-05-28] MEDS: CORDARONE 518 MG IV (18:58)
--- NOTE | 2024-05-28 22:53 | PTCARENOTE ---
assumed care of patient @ 1900. Received pt laying in bed, Aox3. In better spirits this evening, less drowsy. No c/o pain or nausea.X2 assist OOB- pt with unsteady gait, dizzy at times with ambulation. Afib on monitor HR 110s-130s. BP stable. Weak
pulses, +2 b/l LE edema. Lungs clear, diminished satting mid 90s on 2L. Occasional productive cough with white sputum. Tamayo present draining clear yellow urine. 18 FR NGT present in R nare at 80cm draining green/brown output. Flushed easily with 30
mls tap water. 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 R arm midline, PIV all patent. amio infusing at 1, NS 50/hr. family at bedside, call kwon within reach .
--- NOTE | 2024-05-28 23:08 | PTCARENOTE ---
pt stood to commode, had liquid BM. back in bed resting comfortably with call kwon within reach .
[2024-05-29] VITALS (23 sets, daily range): BP systolic 87–160; BP diastolic 42–99; PULSE 88; O2SAT 99; BMI 34.3
[2024-05-29 00:23] LABS: Glucose - Point of Care 141 mg/dl (70-99)
--- NOTE | 2024-05-29 00:30 | PTCARENOTE ---
pt converted to sinus tach HR 130s, CTNP notified, 1 amio bolus ordered and given
[2024-05-29] MEDS: CORDARONE 103 MG IV (01:01)
[2024-05-29] MEDS: LOPRESSOR 2.5 MG IV (03:16)
[2024-05-29 03:38] LABS: Hematocrit 23.5 % (39.0-52.0); Hemoglobin 8.4 g/dL (13.0-18.0); Mean Corp Hgb Conc. 35.7 g/dL (33.0-37.0); Mean Corpuscular Hgb 30.3 pg (27.0-31.0); Mean Corpuscular Volume 84.8 fL (80.0-94.0); Mean Platelet Volume 10.2 fL (7.4-10.4); Platelet Count 124 10^3/uL (130-400); Red Blood Cell Count 2.77 10^6/uL (4.70-6.10); Red Cell Dist. Width 14.4 % (11.5-14.5); White Blood Cell Count 4.3 10^3/uL (4.8-10.8)
[2024-05-29 04:01] LABS: ALT (SGPT) 89 U/L (0-50); Albumin 2.9 g/dl (3.5-5.0); Alkaline Phosphatase 56 U/L (38-126); Blood Urea Nitrogen 58 mg/dl (9-20); Carbon Dioxide 28 mmol/L (22-30); Direct Bilirubin 0.2 mg/dl (0.0-0.4); Estimated Creatinine Clearance 90 ml/min; Glucose 131 mg/dl (70-99); Potassium 3.7 mmol/L (3.5-5.1); Sodium 134 mmol/L (135-145); Total Protein 5.3 g/dl (6.3-8.2); eGFR > 60.00
[2024-05-29 04:10] LABS: AST (SGOT) 232 U/L (17-59); Chloride 100 mmol/L (98-107); Magnesium 2.6 mg/dl (1.6-2.3)
--- NOTE | 2024-05-29 04:36 | W.PN.CT ---
Addendum entered and electronically signed by ANGE Molina 05/29/24 16:08:
CDI inquiry: #hypervolemia
Original Note:
Today's Communication / Plan
-
pod #5
- replete K+ of 3.7 with 20mEq IV
- Hb trending upward (7.3>8.4)
- maintaining SR since approx 0200 (8 hours of A-fib) after additional IV Amio bolus 150mg
- hold oral meds, continue IV fluids and IV Lopressor while NPO
- maintain NGT to low suction
- trend LFTs
- keep Jenkins until ileus resolves and patient ambulatory per urology
Assessment / Plan
-
Assessment:
-s/p AVR (#25 Inspiris); CABG x 3 (DARY to LAD, GSV to RI, L Radial artery to OM) on 05/24/[address] Briggs, pod #4
-required re-establishment of CPB w/ repeat cardioplegic arrest for significant venous bleeding laterally and Repair of myocardial & epicardial adipose bleeding w/ numerous pericardial & standard pledgetted sutures
-intraop SUSY: Valve was well seated w/ mean gradient 6mmHg. EF 60-65%, no wma. Nl RV fxn
-Severe 3v CAD
-USA
-Moderate-severe (MG 27 mmHg, MURIEL 0.9 cm2)
-MAC
-AAA (infrarenal, 4.3 cm)
-Hx CVA (embolic) S/P ILR, 03/2022
-Known b/l ICA stenosis (>70 per recent u/s), cleared for surgery by Vascular Surgery
-Active tobacco abuse (1.5 ppd x 40+ yrs)
-Severe PAD with claudication
-HTN
-HLD
-Prediabetes (A1C 6.2)
-Class 1 obesity (BMI 33)
-GERD
-BPH, on Flomax @ home
-S/P Elbow and ankle surgeries
-Acute postop blood loss anemia - s/p 2 pRBC
-Acute postop thrombocytopenia - s/p 2 units platelets
-Acute postop coagulopathy - s/p 1 FFP
-Acute postop atelectasis
-Acute postop hypovolemia with subsequent hypervolemia
-Acute postop NSVT - tx with Amio drip
-Acute postop urinary retention S/P jenkins reinsertion 05/26
-Acute postop hyponatremia, 128
-Acute postop sinus tachycardia
-Acute postop paralytic ileus
-Acute postop renal insufficiency
-Acute postop atrial fibrillation
-Acute postop transaminitis
Discussed patient care with: Cardiology and Nursing
Subjective
Procedure
-s/p AVR (#25 Inspiris); CABG x 3 (DARY to LAD, GSV to RI, L Radial artery to OM) on 05/24/[address] Briggs-POD #5
-
Date of Service: May 29, 2024
Objective Data
-
PT 14.1 Sec (11.4-14.6) 05/27/24 16:46
INR 1.11 05/27/24 16:46
APTT 28.8 Sec (23.4-35.0) 05/27/24 16:46
Vital Signs
Vital Signs
Temp Pulse Resp BP Pulse Ox
98.9 F 90 16 109/60 95
05/29/24 00:00 05/29/24 02:30 05/29/24 00:00 05/29/24 02:00 05/29/24 00:00
CT Intake/Output/Weight
05/28/24 05/28/24 05/29/24
06:59 18:59 06:59
Intake Total 540 / 860 780 / 1170 390 / 1170
Output Total 675 / 1725 1000 / 2475 1475 / 2475
Balance -135 / -865 -220 / -1305 -1085 / -1305
SaO2: 95
Physical Exam
-
General: AOx3
Cardiovascular: Regular rate & rhythm (converted from AF around 0200)
Respiratory: Clear
Sternum: Stable
Incision: Dressing Intact
Extremities: No Edema and Other (left radial site ecchymosis, +2/4 ulnar pulse, +CMS hand; R thigh SVG ecchymosis)
NGT R nares to low suction with bilious drainage. Abdomen soft w/hypoactive BS
Data Reviewed
-
Lab Results: Results Reviewed
Medications: Active Meds Reviewed
Chest X-Ray: Report Reviewed and Image Reviewed
ECG: Report Reviewed and Image Reviewed
[2024-05-29] MEDS: KCL 160 MEQ IV (05:35)
[2024-05-29] MEDS: TYLENOL PO (07:25)
--- NOTE | 2024-05-29 08:00 | PTCARENOTE ---
Received pt from [facility]. Pt is AAOx3, NSR, VSS. Peripheral X1 and right upper arm midline patent; Amiodarone infusing see flow sheet for details; epicardial V wire insulated. Lungs diminished; bowel sounds hypoactive, slightly distended abdomen,
pt reports flatus, NG tube in right nare to low intermittent suction and draining yellow liquid, Tamayo catheter draining clear urine. Pulses palpable throughout, +2 edema bilateral lower extremities; surgical sites C/D/I. see nursing documentation
for details.
[2024-05-29 08:07] LABS: Glucose - Point of Care 143 mg/dl (70-99)
[2024-05-29] MEDS: NOVOLOG FLEXPEN-MODERATE RESISTANCE SC ×3 (08:19→17:02)
[2024-05-29] MEDS: LIDOCAINE 4% PATCH 1 PATCH TOPICAL (08:25)
[2024-05-29] MEDS: NICODERM TRANSDERMAL 21 MG TRANSDERM (08:27)
[2024-05-29] MEDS: PROTONIX IV 40 MG IV (08:28)
[2024-05-29] MEDS: LOPRESSOR 5 MG IV ×3 (08:32→21:10)
[2024-05-29] MEDS: NSS (PRESERVATIVE FREE) 10 ML IV (08:36)
--- NOTE | 2024-05-29 08:50 | W.PN.GS2 ---
Addendum entered and electronically signed by Karl Bailey MD 05/29/24 16:16:
I saw and examined the patient independently.
The Knee Bolter's note was reviewed and I agree with the note, assessment and plan except where noted below.
Comment: This is a 63-year-old male postoperative day 5 from AVR/CABG and postoperative ileus, now with return of bowel function.
NG tube removed, clear started.
If he continues to do well, okay to advance diet to regular tomorrow.
General surgery will follow.
No follow-up needed per se, but can follow-up with myself or Dr. Stone as needed.
Original Note:
Today's Communication / Plan
-
D/C NGT
Sips of clears for comfort
Assessment / Plan
-
POD#5 s/p AVR/CABG with abdominal distention, most likely due to a probable ileus. Confirmed with CT.
XR with improving ileus s/p decompression, although still with sm bowel distention
NGT with nonbilious outputs
+flatus/liquid stool, abdominal pain resolved
AFVSS
--Plan removal of NGT today
--NPO with sips/chips
Subjective Data
-
Date of Service: May 29, 2024
Patient seen and examined at bedside. Notes abdominal pain is resolved. Denies nausea or belching. Eager to have NGT out. Passing gas and some liquid stools.
Objective Data
-
Intake and Output
05/28/24 05/29/24 05/30/24
06:59 06:59 06:59
Intake Total 860 / 860 1170 / 1170
Output Total 1725 / 1725 2475 / 2475
Balance -865 / -865 -1305 / -1305
Intake:
Oral fluids 200 / 200 50 / 50
IV fluids (Total) 520 / 520 500 / 500
0.9% NS Cordis 20 / 20
nss\\ 500 / 500 500 / 500
IV piggybacks 50 / 50
Amount instilled into GI Tube ( 90 / 90 120 / 120
Total)
Perry Sump 90 / 90 120 / 120
Blood Products 250 / 250
Packed red blood cells 250 / 250
Blood Product Amount Infused ( 250 / 250
mL)
Packed Rbc Leukoreduced Unit 250 / 250
[id number]
Output:
Gastrointestinal tube output ( 275 / 275 975 / 975
Total)
Perry Sump 275 / 275 975 / 975
Urine, Tamayo 1450 / 1450 1500 / 1500
Vital Signs
Temp Pulse Resp BP Pulse Ox
97.4 F 93 18 148/67 99
05/29/24 08:00 05/29/24 08:32 05/29/24 08:00 05/29/24 08:32 05/29/24 08:00
Lab Results
05/29/24 06:00
05/29/24 06:00
Calcium Cancelled 05/29/24 06:00
Magnesium 2.6 mg/dl (1.6-2.3) H 05/29/24 03:23
Total Bilirubin Cancelled 05/29/24 06:00
Direct Bilirubin Cancelled 05/29/24 06:00
AST Cancelled 05/29/24 06:00
ALT Cancelled 05/29/24 06:00
Alkaline Phosphatase Cancelled 05/29/24 06:00
Total Protein Cancelled 05/29/24 06:00
Albumin Cancelled 05/29/24 06:00
Physical Exam
-
NAD
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
--- NOTE | 2024-05-29 09:04 | PTCARENOTE ---
NG tube removed pt CVPA order.
[2024-05-29] MEDS: NSS 1000 IV (11:14)
--- NOTE | 2024-05-29 12:08 | PTCARENOTE ---
NSS on monitor, VSS; pt resting comfortably in bed, call kwon within reach; Assessment unchanged.
[2024-05-29 12:18] LABS: Glucose - Point of Care 151 mg/dl (70-99)
--- NOTE | 2024-05-29 13:49 | CM ---
Reviewed chart. Met with Mr. Fay to review discharge plans. He states he is feeling better. He states he is planning on going to stay with his daughter, Qing's home. Her address is [address] [place] [address]. He states she has a one story
home with two steps to enter. He states his daughter and son-in-law work outside the home but his 17 year old granddaughter will be home to check on him. We reviewed the home visit by the Cardiothoracic Transitional Care Nurse. He is agreeable to a
home visit. Medical work-up in progress. The discharge plan is to go to his daughter home, Qing and a home visit by the Cardiothoracic Transitional Care Nurse when medically stable.
[2024-05-29] MEDS: TYLENOL 1000 MG PO (13:57)
--- NOTE | 2024-05-29 14:40 | WOUNDNOTE ---
SACRUM WITH FLASH
--- NOTE | 2024-05-29 14:40 | WOUNDNOTE ---
SACRUM/GLUTEAL CLEFT WHEN STANDING.
--- NOTE | 2024-05-29 14:42 | WOUNDNOTE ---
JOAO RN note: Patient admitted with Chest pain, abnormal stress test.
See H&P for complete history. Lives with spouse and is employed.
PMH: Smoker 2 ppd, HTN, stroke, sciatica-chronic back pain, lumbar epidural steroid injections, pilonidal cyst removal.
Wound Location and type/assessment: Patient has a line of dark maroon colored skin with shallow blister on top, along gluteal cleft. Confirmed with patient this was location of pilonidal cyst removal 10 yrs ago. Suspect wound due to combination of
old surgical site reopening, MASD, shallow blister vs true DTI. Air chair cushion in use with frequent shifts in position and silicone foam.
Appetite: NPO encouraged patient to eat protein in diet when able to eat.
Pressure redistribution devices in place:continue on Centrella air bed when transferred out of unit. Turning schedule.
Plan: Silicone foam to gluteal cleft, monitor site, offloading. Patient states he is planning to stop smoking.
Will confirm orders with hospitalist and updated nurse. Updated care plan and will follow as needed.
Note to case management of equipment requested for discharge: VN for wound care if unable to do.
Recommend follow up at wound care center upon discharge.
--- NOTE | 2024-05-29 14:57 | W.PN.CD ---
Today's Communication / Plan
-
Follow for resolution of ileus
Impression / Plan
-
Impression/Plan: 63 y/o male admitted with PAD, AAA, CHRIS and moderate/severe admitted with unstable angina and a markedly abnormal stress test, found to have multivessel CAD.
# Ileus
-NG tube out
-plan per surgery
#CAD: unstable angina
-Abnormal stress test 05/17/24 with anterior ischemia and TID.
-Multivessel coronary artery disease on cardiac catheterization.
-S/P 3V CABG (pedicled SANTANA to LAD, LRA to OM, SVG to RI) with Dr. Briggs, 05/24/2025.
-ASA/Plavix
#Moderate to severe aortic stenosis
-Chronic, stable.
-S/P #25 Strickland Inspiris SAVR (SN [id number]) with Dr. Briggs, 05/24/2025.
#HTN
-stable to slightly high
#HLD
-Chronic, stable.
-Total cholesterol = 102, LDL = 39, HDL = 48, VLDL = 15, triglycerides = 79.
-holding rosuvastatin 40 mg daily and ezetimibe 10 mg daily due to ileus
#PAD/CHRIS
-Chronic, stable to mildly progressive.
-Bilateral >70% carotid artery stenosis, likely overcalled on Duplex compared to CTA. Vascular surgery does not feel carotid revasc needed preop.
-AAA 4.[address] in 2021. AAA will be followed with serial imaging
-Also noted severe R SFA stenosis with claudication. This will be managed outpatient.
#Hx of CVA
-Suspected embolic, 2021.
-ILR in place, no Afib.
-No new neuro symptoms.
Subjective/Interval History:
NG removed today. Waiting for ileus to resolve
DATA:
Abdominal US, 05/19/2024:
IMPRESSION: Fusiform infrarenal abdominal aortic aneurysm measuring up to 4.3 cm in diameter, no significant interval increase in size as compared with CT of July 2022.
Carotid Duplex, 05/19/2024:
IMPRESSION: By velocity criteria, there is greater than 70% stenosis of the bilateral internal carotid arteries. Peak systolic velocity slightly decreased on the right as compared with prior, 292 cm/s versus 304 cm/s prior. Peak systolic velocity
increased on the right as compared with prior, 485 cm/s as compared with 241 cm/s prior.
YUMIKO, 05/19/2024:
IMPRESSION:
1. Right ankle brachial index of 0.82 is improved as compared with 0.65 prior. Toe brachial index of 0.43, slightly improved from 0.34 prior. Common femoral waveform is multiphasic, but somewhat dampened suggesting probable inflow disease. There
is a moderate stenosis of the profunda femoral artery. There is a severe stenosis of the mid right superficial femoral artery.
2. Left ankle-brachial index of 0.79 is slightly decreased from 0.91 prior. Within the mild claudication range. The toe brachial index of 0.44 is without significant change from 0.45 prior. No signs of inflow disease on the left. There is a
moderate profunda femoral stenosis. Waveforms remain multiphasic to the popliteal, with dampened Doppler waveforms at the ankle consistent with the presence of infrapopliteal small vessel disease.
Cardiac Catheterization, 05/18/2024:
CONCLUSIONS
1. Right dominant circulation with DISC PAD GRINDER of the proximal RCA, a cloacal left main coronary artery with an occlusive ostial 70+ percent lesion (IFR = 0.80), a 60% lesion in the distal LAD (IFR = 0.54), a 70% lesion in the ostium of the circumflex
followed by an 80% lesion in the mid vessel, and a 90% lesion in the ostium of the large nondominant circumflex.
2. Normal filling pressures (LVEDP = 12 mmHg at 108.9 kg).
3. Probably moderate to severe aortic valve stenosis (mean gradient 34.75 mmHg).
TTE, 05/18/2024:
CONCLUSIONS
1. Normal LV size with inferobasal akinesis and inferior hypokinesis. LVEF 55-60%.
2. MAC.
3. Moderate to severe with mean gradient 27mm Hg, MURIEL 0.9cm2.
4. Compared with study, has progressed.
Physical Exam
Vital Signs/Labs
Vital Signs
Temp Pulse Resp BP Pulse Ox
98.9 F 94 16 148/83 95
05/29/24 11:30 05/29/24 13:58 05/29/24 11:30 05/29/24 13:58 05/29/24 11:30
05/28/24 05/29/24 05/30/24
06:59 06:59 06:59
Actual Weight 259 lb 7.745 oz 252 lb 13.923 oz
05/29/24 06:00
05/29/24 06:00
PT 14.1 Sec (11.4-14.6) 05/27/24 16:46
INR 1.11 05/27/24 16:46
APTT 28.8 Sec (23.4-35.0) 05/27/24 16:46
Magnesium 2.6 mg/dl (1.6-2.3) H 05/29/24 03:23
Triglycerides 79 mg/dl (10-149) 05/18/24 06:13
LDL Cholesterol, Calc 39 mg/dl 05/18/24 06:13
VLDL Cholesterol, Calc 15 mg/dl (0-30) 05/18/24 06:13
HDL Cholesterol 48 mg/dl 05/18/24 06:13
Physical Exam
Constitutional: Comfortable
Cardiovascular: Rhythm & rate is regular
Respiratory: Lungs clear to auscul.
Neuro/Psych: AO x 3 and Motor deficits absent
Data Reviewed
-
Date of Service: May 29, 2024
--- NOTE | 2024-05-29 15:18 | PN.CDI ---
CDI
- -
CDI:
Physician Documentation Request
Admit Date: 05/17/24 22:29
Dear Doctor Chester,
Please review the following and provide your response in the progress notes.
Clinical Indicators:
Cardiology, PN, 05/23
#Moderate to severe aortic stenosis:
#...-Echocardiogram this admit revealed an LVEF of 55-60%,
#...but moderate to severe aortic stenosis was present.
PN, 05/27
#POD#3 s/p AVR/CABG
#Continue diuresis (creat 1.1)
#-Postop urinary retention requiring jenkins reinsertion last night 05/26, scanned for > 450, diuresed overnight. Known BPH pt on Flomax @ home
#-Will benefit from diuresis as wt is up 19 lbs from preop based on wt yesterday.
#-Acute postop hypovolemia with subsequent hypervolemia
Selected Entries
05/24/24
05:40 05/25/24
06:00 05/26/24
10:34
Body Mass Index (BMI) 32.5 34.7 35.2
05/27/24
06:00 05/28/24
06:00 05/29/24
06:00
Body Mass Index (BMI) 35.2 35.2 34.3
Medications
Furosemide (Furosemide 20 Mg (10 Mg/Ml) 2 Ml Vial) 20 mg IV ONCE ONE
Stop: 05/26/24 19:44
Last Admin: 05/26/24 20:11 Dose: 20 mg
Furosemide (Furosemide 40 Mg (10 Mg/Ml) 4 Ml Vial) 40 mg IV ONCE ONE
Stop: 05/27/24 04:10
Last Admin: 05/27/24 05:23 Dose: 40 mg
Please provide further specificity regarding the most likely condition/diagnosis evaluated, treated and/or monitored.
Acute Diastolic CHF
Acute Systolic CHF
Acute on Chronic Diastolic CHF
Acute on Chronic Systolic CHF
Hypervolemia
Other(please specify)
Type Acuity
Systolic Acute
Diastolic Chronic
Combined Systolic/Diastolic Acute on Chronic
Use of terms such as suspected, likely, concern for, or probable (associated with a specific diagnosis that is being evaluated, monitored, or treated as if it exists) are acceptable and can be coded in the inpatient setting, when documented at the
time of discharge.
Thank you,
Kelsey Eaton RN BSN CCDS
CDI Specialist
please contact via tiger text
Please use your independent medical judgment in providing your response.
[2024-05-29 16:59] LABS: Glucose - Point of Care 131 mg/dl (70-99)
[2024-05-29] MEDS: REGLAN 10 MG IV ×2 (17:03→23:45)
--- NOTE | 2024-05-29 17:43 | PTCARENOTE ---
Pt NSS; VSS, OOB to chair resting comfortably. Pt ambulated x3 in hallway; WOC in to see pt; see note for details; nursing assessment unchanged.
--- NOTE | 2024-05-29 21:30 | PTCARENOTE ---
Report received from Ozzie, Kiet. Walking rounds done. Pt sitting in chair. Awake. alert, oriented x 4. Helped to BR to try to have BM, unsuccessful. Pt helped to bed. Assessed. VS done. Pt on SR, rate 90's. Audible heart tones. BP
150-160's systolic. Lopressor 5 mg IV given as scheduled. Amiodarone gtt infusing at 0.5 mg/min through R arm midline cath. V wire present. Insulated to chest, per protocol. Sternal aquacel present with old sanguinous drainage present, small
amount. Pt on room air. Sats 96-97%. BBS present. Decreased to B bases. CDB and IS encouraged. IS Peak 2000 mls. Belly soft, round, nontender. Hypoactive bowel sounds x 4. Pt taking sips of water and ice chips sparingly. Denies nausea and abdominal
pain. Afebrile. Feels he needs to have BM. Helped to BSC where he passed increased amounts of flatus and had liquid stool with some loose stool ( small amount, brown). R radial pulse +2 palpable, L ulnar pulse +2 palpable. B DP and PT pulses found
via doppler to BLEs. See wound assessment on flowsheet for documentation of surgical incisions. Pt with foam to sacral DTI. Dry and intact. Pt given CHG bath. Leads changed. gown changed. Pt helped to bed. Encouraged turning q 2 hours off of sacrum
to relieve pressure to DTI. Pt using air pad when in chair. Attempted to use in bed but was having discomfort in bed. Using pillow when turning [id number].
[2024-05-29] MEDS: CORDARONE 518 MG IV (22:24)
[2024-05-29 23:26] LABS: Glucose - Point of Care 126 mg/dl (70-99)
[2024-05-30] VITALS (9 sets, daily range): BP systolic 104–157; BP diastolic 60–84; PULSE 94; BMI 34.2
--- NOTE | 2024-05-30 00:34 | PTCARENOTE ---
Pt helped to BSC to have liquid/loose brown stool. Small amount. Denies abdominal pain. Denies nausea. Belly remains soft, nontender to palpation. Afebrile. Pt having some ice chips and sips of water.
[2024-05-30] MEDS: TYLENOL 650 MG PO (00:50)
--- NOTE | 2024-05-30 00:53 | PTCARENOTE ---
Pt c/o discomfort in bed. C/O chronic pain to lower back and BLE. States that he takes either Motrin or Tylenol at home for this chronic pain. Refused option to sleep in recliner chair. CORDELL Kim notified. Tylenol 650 mg po x 1 for c/o pain, as
described.
[2024-05-30] MEDS: LOPRESSOR 5 MG IV ×2 (04:00→08:00)
[2024-05-30 06:14] LABS: Hematocrit 24.1 % (39.0-52.0); Hemoglobin 8.4 g/dL (13.0-18.0); Mean Corp Hgb Conc. 34.9 g/dL (33.0-37.0); Mean Corpuscular Hgb 30.3 pg (27.0-31.0); Mean Platelet Volume 9.8 fL (7.4-10.4); Platelet Count 135 10^3/uL (130-400); Red Blood Cell Count 2.77 10^6/uL (4.70-6.10); Red Cell Dist. Width 14.6 % (11.5-14.5)
[2024-05-30] MEDS: REGLAN 10 MG IV ×3 (06:18→17:20)
[2024-05-30] MEDS: NSS 1000 IV (06:18)
--- NOTE | 2024-05-30 06:29 | PTCARENOTE ---
Pt awake. Abdominal X Ray completed. Labs drawn and sent. Pt up to BSC to have liquid/loose brown stool. Pt weighed and helped to recliner chair. No c/o abdominal pain. No c/o nausea, vomiting. + belching.
[2024-05-30 06:40] LABS: ALT (SGPT) 80 U/L (0-50); AST (SGOT) 138 U/L (17-59); Albumin 2.9 g/dl (3.5-5.0); Alkaline Phosphatase 53 U/L (38-126); Blood Urea Nitrogen 28 mg/dl (9-20); Calcium 7.7 mg/dl (8.4-10.2); Carbon Dioxide 29 mmol/L (22-30); Chloride 103 mmol/L (98-107); Direct Bilirubin 0.3 mg/dl (0.0-0.4); Estimated Creatinine Clearance > 125 ml/min; Glucose 106 mg/dl (70-99); Magnesium 2.3 mg/dl (1.6-2.3); Potassium 3.3 mmol/L (3.5-5.1); Sodium 135 mmol/L (135-145); Total Bilirubin 1.3 mg/dl (0.2-1.3); Total Protein 5.1 g/dl (6.3-8.2); eGFR > 60.00
--- NOTE | 2024-05-30 07:23 | W.PN.CT ---
Today's Communication / Plan
-
-pod #6
-overall, pt says that feels better comparing to before NGT was placed. Continues to have belching, loose frequent stools, + flatus. NG tube dcd 05/29. Appreciate gen. surgery input
-follow abdominal xry
-currently, on Amio drip since 05/28 for a-fib with RVR, iv Lopressor q6h, and iv Reglan q6h. Holding po meds, including ASA, Plavix, Crestor, Norvasc for radial graft, po Amio, Lopressor, Magnesium
-follow LFTs and Cr- improving
-UO 975/2225cc in 12/24 hrs (has Jenkins for retention)
-K 3.3- ordered 40 iv KCL this am (has midline)
-encourage IS, OOB
-appreciate everyone's input
Assessment / Plan
-
Assessment:
-s/p AVR (#25 Inspiris); CABG x 3 (DARY to LAD, GSV to RI, L Radial artery to OM) on 05/24/[address] Briggs, pod #6
-required re-establishment of CPB w/ repeat cardioplegic arrest for significant venous bleeding laterally and Repair of myocardial & epicardial adipose bleeding w/ numerous pericardial & standard pledgetted sutures
-intraop SUSY: Valve was well seated w/ mean gradient 6mmHg. EF 60-65%, no wma. Nl RV fxn
-Severe 3v CAD
-USA
-Linq implantable loop recorder in place
-Moderate-severe (MG 27 mmHg, MURIEL 0.9 cm2)
-MAC
-AAA (infrarenal, 4.3 cm)
-Hx CVA (embolic) S/P ILR, 03/2022
-Known b/l ICA stenosis (>70 per recent u/s), cleared for surgery by Vascular Surgery
-Active tobacco abuse (1.5 ppd x 40+ yrs)
-Severe PAD with claudication
-HTN
-HLD
-Prediabetes (A1C 6.2)
-Class 1 obesity (BMI 33)
-GERD
-BPH, on Flomax @ home
-S/P Elbow and ankle surgeries
-Acute postop blood loss anemia - s/p 3 pRBC total
-Acute postop thrombocytopenia - s/p 2 units platelets
-Acute postop coagulopathy - s/p 1 FFP
-Acute postop atelectasis
-Acute postop hypovolemia with subsequent hypervolemia
-Acute postop NSVT - tx with Amio drip
-Acute postop urinary retention S/P jenkins reinsertion 05/26
-Acute postop hyponatremia, 128
-Acute postop sinus tachycardia
-Acute postop paralytic ileus- NG tube placed 05/27 and dcd 05/29. Eval by general surgery
-Acute postop renal insufficiency
-Acute postop atrial fibrillation
-Acute postop transaminitis
Discussed patient care with: Nursing and Care Team
Subjective
Procedure
-s/p AVR (#25 Inspiris); CABG x 3 (DARY to LAD, GSV to RI, L Radial artery to OM) on 05/24/[address] Briggs-POD #5
-
Date of Service: May 30, 2024
Objective Data
-
PT 14.1 Sec (11.4-14.6) 05/27/24 16:46
INR 1.11 05/27/24 16:46
APTT 28.8 Sec (23.4-35.0) 05/27/24 16:46
Vital Signs
Vital Signs
Temp Pulse Resp BP Pulse Ox
98.4 F 94 16 151/64 97
05/29/24 23:27 05/29/24 23:27 05/29/24 23:27 05/29/24 23:27 05/29/24 23:27
CT Intake/Output/Weight
05/29/24 05/29/24 05/30/24
06:59 18:59 06:59
Intake Total 390 / 1170 600.1 / 600.1
Output Total 1475 / 2475 1400 / 1675 275 / 1675
Balance -1085 / -1305 -1400 / -1074.9 325.1 / -1074.9
SaO2: 97
Physical Exam
-
General: Awake and AOx3
Cardiovascular: Regular rate & rhythm, No Murmurs and No Rub
Respiratory: Decreased Breath Sounds
Sternum: Stable
Incision: Clean, Dry and Intact
Extremities: Edema +1 (DPs dopplerable b/l. Pt refuses pneumatic stockings d/t worsening sciatic pain.)
Abdomen: moderately distended, nontender, soft, + bowel sounds
Data Reviewed
-
Lab Results: Results Reviewed
Medications: Active Meds Reviewed
Chest X-Ray: Report Reviewed and Image Reviewed
ECG: Report Reviewed and Image Reviewed
--- NOTE | 2024-05-30 08:00 | PTCARENOTE ---
Received pt from [facility], pt AOX4, ambulates with standby assist and walker, ST, VS T-98.4, P-105, R-18, B/P 157/84, P/O 98% RA, V-wire insulated, DP pulses audible on Doppler, R radial palpable, L ulnar palpable; +1 edema bi-lateral lower
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
arm, approx [employer]. R groin puncture approx WOLF, old chest tube sites covered C/D/I, Right upper arm midline intact infusing amio at 0.5mg/min, NSS @ 50ml/hr, R 20g AC PIV, Pt ambulated in hallway, Plan of care review with pt.
[2024-05-30] MEDS: NSS (PRESERVATIVE FREE) 10 ML IV (08:03)
[2024-05-30] MEDS: NICODERM TRANSDERMAL 21 MG TRANSDERM (08:06)
[2024-05-30] MEDS: LIDOCAINE 4% PATCH 1 PATCH TOPICAL (08:11)
[2024-05-30] MEDS: PROTONIX IV 40 MG IV (08:13)
[2024-05-30] MEDS: NOVOLOG FLEXPEN-MODERATE RESISTANCE SC ×3 (08:13→17:19)
--- NOTE | 2024-05-30 08:55 | W.PN.GS2 ---
Addendum entered and electronically signed by Anup Watkins MD 05/30/24 10:05:
Patient seen and examined.
No complaints. Tolerated clears, no nausea or vomiting. Reports passing flatus and loose nonbloody stools. States that abdominal pain and distention have improved.
Gen: NAD
Abd: soft, NT, mild/moderate distension (improved per patient and primary), non-peritoneal
POD#6 s/p AVR/CABG with abdominal distention, most likely due to a probable ileus.
CT scan supports.
XR still with mild sm bowel distention
Clinical improvement with less bowel distention, pain, and passage of flatus and stool.
PLAN:
-Advance to Low residue diet as tolerated
Original Note:
Today's Communication / Plan
-
*Advance to Low residue diet as tolerated
Assessment / Plan
-
ASSESSMENT:
POD#6 s/p AVR/CABG with abdominal distention, most likely due to a probable ileus. Confirmed with CT.
XR still with mild sm bowel distention
PLAN:
-Advance to Low residue diet as tolerated
Time Spent
Total Time Spent with Patient (in minutes): ~10 min
Subjective Data
-
Date of Service: May 30, 2024
Pt was seen and evaluated this morning at bedside with the attending physician.
No Acute o/N events reported
Today no complains / Pt states he is feeling well
No pain
Passing Flatus / BM +
Objective Data
-
Intake and Output
05/29/24 05/30/24 05/31/24
06:59 06:59 06:59
Intake Total 1170 / 1170 800.1 / 800.1
Output Total 2475 / 2475 2375 / 2375
Balance -1305 / -1305 -1574.9 / -1574.9
Intake:
Oral fluids 50 / 50
IV fluids (Total) 500 / 500 800.1 / 800.1
Amiodarone gtt 200.1 / 200.1
nss\\ 500 / 500 600 / 600
Amount instilled into GI Tube ( 120 / 120
Total)
Dillon Sump 120 / 120
Blood Products 250 / 250
Packed red blood cells 250 / 250
Blood Product Amount Infused ( 250 / 250
mL)
Packed Rbc Leukoreduced Unit 250 / 250
[id number]
Output:
Gastrointestinal tube output ( 975 / 975 150 / 150
Total)
Dillon Sump 975 / 975 150 / 150
Urine, Tamayo 1500 / 1500 1950 / 1950
Urine, Voided 275 / 275
Vital Signs
Temp Pulse Resp BP Pulse Ox
36.9 C 104 18 157/84 98
05/30/24 07:44 05/30/24 07:44 05/30/24 07:44 05/30/24 08:00 05/30/24 07:44
Lab Results
05/30/24 05:57
Calcium 7.7 mg/dl (8.4-10.2) L 05/30/24 05:56
Magnesium 2.3 mg/dl (1.6-2.3) 05/30/24 05:56
Total Bilirubin 1.3 mg/dl (0.2-1.3) 05/30/24 05:56
Direct Bilirubin 0.3 mg/dl (0.0-0.4) 05/30/24 05:56
AST 138 U/L (17-59) H 05/30/24 05:56
ALT 80 U/L (0-50) H 05/30/24 05:56
Alkaline Phosphatase 53 U/L (38-126) 05/30/24 05:56
Total Protein 5.1 g/dl (6.3-8.2) L 05/30/24 05:56
Albumin 2.9 g/dl (3.5-5.0) L 05/30/24 05:56
Physical Exam
-
VITALS: AF VSS
PE:
GEN-AAOx3 / IN NAD
ABD-Soft, Mildly distended, NO Rebound, Guarding or Rigidity
No TTP
NG-Tube out
[2024-05-30] MEDS: KCL 270 MEQ IV (09:18)
[2024-05-30] MEDS: TORADOL 15 MG IV ×2 (09:19→20:37)
[2024-05-30 12:17] LABS: Glucose - Point of Care 142 mg/dl (70-99)
[2024-05-30] MEDS: NORVASC 5 MG PO (12:18)
[2024-05-30] MEDS: LOW STRENGTH ASPIRIN 81 MG PO (12:19)
[2024-05-30] MEDS: PLAVIX 75 MG PO (12:19)
[2024-05-30] MEDS: KCL 40 MEQ PO ×3 (12:20→20:37)
--- NOTE | 2024-05-30 12:53 | PTCARENOTE ---
NSR on monitor, B/P:104/80, P/O 98% on RA; Advanced to clear liquid diet, tolerating liquids well, no nausea, no vomiting, jenkins draining adequate amounts, IVF d/c'ed, No other acute changes.
[2024-05-30] MEDS: LOPRESSOR 50 MG PO ×2 (13:25→20:37)
--- NOTE | 2024-05-30 13:35 | CM ---
Reviewed chart. Met with Mr. Fay to review discharge plans. He states he is feeling better. He is planning on staying with his daughter when ready for discharge. He states she has a one story home with two steps to enter. He ambulated 200
feet with rolling walker and supervision. Medical work-up in progress. The discharge plan is to go to his daughter's home with a home visit by the Cardiothoracic Transitional Care Nurse when medically stable.
--- NOTE | 2024-05-30 15:37 | PTCARENOTE ---
NSR on monitor, VSS; T:98.8, P:72, R:18, B/P: 155/73, P/O: 98% on RA; pt diet advanced to Cholesterol lowering diet, ate 50% of meal, no nausea, vomiting at this time. Pt ambulated in hallways X2. Pt resting comfortably in chair.
[2024-05-30 15:54] LABS: Blood Urea Nitrogen 29 mg/dl (9-20); Calcium 7.5 mg/dl (8.4-10.2); Carbon Dioxide 28 mmol/L (22-30); Chloride 101 mmol/L (98-107); Estimated Creatinine Clearance 108 ml/min; Glucose 142 mg/dl (70-99); Potassium 3.6 mmol/L (3.5-5.1); Sodium 131 mmol/L (135-145); eGFR > 60.00
[2024-05-30] MEDS: LASIX 40 MG IV (16:20)
[2024-05-30 17:11] LABS: Glucose - Point of Care 124 mg/dl (70-99)
[2024-05-30] MEDS: CALCIUM GLUCONATE 1000 MG IV (17:19)
[2024-05-31] VITALS (10 sets, daily range): BP systolic 123–164; BP diastolic 66–99; PULSE 82; O2SAT 99; BMI 34.5
[2024-05-31] MEDS: REGLAN 10 MG IV ×4 (03:24→17:48)
[2024-05-31 03:56] LABS: Hematocrit 24.7 % (39.0-52.0); Hemoglobin 8.6 g/dL (13.0-18.0); Mean Corp Hgb Conc. 34.8 g/dL (33.0-37.0); Mean Corpuscular Volume 86.1 fL (80.0-94.0); Platelet Count 190 10^3/uL (130-400); Red Blood Cell Count 2.87 10^6/uL (4.70-6.10); Red Cell Dist. Width 14.8 % (11.5-14.5); White Blood Cell Count 4.9 10^3/uL (4.8-10.8)
[2024-05-31 04:15] LABS: ALT (SGPT) 67 U/L (0-50); AST (SGOT) 85 U/L (17-59); Albumin 2.9 g/dl (3.5-5.0); Alkaline Phosphatase 52 U/L (38-126); Blood Urea Nitrogen 27 mg/dl (9-20); Calcium 7.9 mg/dl (8.4-10.2); Carbon Dioxide 27 mmol/L (22-30); Chloride 102 mmol/L (98-107); Direct Bilirubin 0.3 mg/dl (0.0-0.4); Estimated Creatinine Clearance 122 ml/min; Glucose 112 mg/dl (70-99); Potassium 3.9 mmol/L (3.5-5.1); Sodium 132 mmol/L (135-145); Total Bilirubin 1.3 mg/dl (0.2-1.3); Total Protein 5.2 g/dl (6.3-8.2); eGFR > 60.00
--- NOTE | 2024-05-31 04:43 | PTCARENOTE ---
assumed care of patient @ 1900. recieved pt sitting in chair, AOx3. moderate c/o back pain, toradol ordered and given. NSR on monitor. Weak pulses, +1 edema b/l l/e. V wire insulated. Lungs clear, diminished on room air. Pt passing gas and having
frequent liquid BMs. +BS. States distension is much better. tolerating water well. Tamayo draining clear deacon urine. Sacral wound DTI with foam. Aquacel with old drainage. 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 R midline with amio infusing at 0.5. CTPA says
to keep on till AM. Pt resting comfortably in bed with call kwon within reach .
--- NOTE | 2024-05-31 06:21 | W.PN.CT ---
Today's Communication / Plan
-
-pod #7
-looks and feels better overall
-GI issues are improving
-in nsr, on Amio drip
-? restarting po Amio.
-continue ASA, Plavix, Norvasc for radial graft, Lopressor, Crestor, Amio
-encourage IS, OOB
Assessment / Plan
-
Assessment:
-s/p AVR (#25 Inspiris); CABG x 3 (DARY to LAD, GSV to RI, L Radial artery to OM) on 05/24/[address] Briggs, pod #7
-required re-establishment of CPB w/ repeat cardioplegic arrest for significant venous bleeding laterally and Repair of myocardial & epicardial adipose bleeding w/ numerous pericardial & standard pledgetted sutures
-intraop SUSY: Valve was well seated w/ mean gradient 6mmHg. EF 60-65%, no wma. Nl RV fxn
-Severe 3v CAD
-USA
-Linq implantable loop recorder in place
-Moderate-severe (MG 27 mmHg, MURIEL 0.9 cm2)
-MAC
-AAA (infrarenal, 4.3 cm)
-Hx CVA (embolic) S/P ILR, 03/2022
-Known b/l ICA stenosis (>70 per recent u/s), cleared for surgery by Vascular Surgery
-Active tobacco abuse (1.5 ppd x 40+ yrs)
-Severe PAD with claudication
-HTN
-HLD
-Prediabetes (A1C 6.2)
-Class 1 obesity (BMI 33)
-GERD
-BPH, on Flomax @ home
-S/P Elbow and ankle surgeries
-Acute postop blood loss anemia - s/p 3 pRBC total
-Acute postop thrombocytopenia - s/p 2 units platelets
-Acute postop coagulopathy - s/p 1 FFP
-Acute postop atelectasis
-Acute postop hypovolemia with subsequent hypervolemia
-Acute postop NSVT - tx with Amio drip
-Acute postop urinary retention S/P jenkins reinsertion 05/26
-Acute postop hyponatremia, 128
-Acute postop sinus tachycardia
-Acute postop paralytic ileus- NG tube placed 05/27 and dcd 05/29. Eval by general surgery
-Acute postop renal insufficiency
-Acute postop atrial fibrillation
-Acute postop transaminitis
Discussed patient care with: Nursing and Care Team
Subjective
Procedure
-s/p AVR (#25 Inspiris); CABG x 3 (DARY to LAD, GSV to RI, L Radial artery to OM) on 05/24/[address] Briggs-POD #5
-
Date of Service: May 31, 2024
Objective Data
-
Lab Results
05/31/24 03:20
05/31/24 03:20
PT 14.1 Sec (11.4-14.6) 05/27/24 16:46
INR 1.11 05/27/24 16:46
APTT 28.8 Sec (23.4-35.0) 05/27/24 16:46
Vital Signs
Vital Signs
Temp Pulse Resp BP Pulse Ox
97.6 F 79 16 143/60 95
05/31/24 04:00 05/31/24 02:30 05/31/24 04:00 05/30/24 23:31 05/31/24 04:00
CT Intake/Output/Weight
05/30/24 05/30/24 05/31/24
06:59 18:59 06:59
Intake Total 800.1 / 800.1 1316.5 / 1796.5 480 / 1796.5
Output Total 975 / 2375 1750 / 1750
Balance -174.9 / -1574.9 -433.5 / 46.5 480 / 46.5
SaO2: 95
Physical Exam
-
General: Awake and AOx3
Cardiovascular: Regular rate & rhythm, No Murmurs and No Rub
Respiratory: Decreased Breath Sounds
Sternum: Stable
Incision: Clean, Dry and Intact
Extremities: Other (trace edema b/l)
Data Reviewed
-
Lab Results: Results Reviewed
Medications: Active Meds Reviewed
Chest X-Ray: Report Reviewed and Image Reviewed
ECG: Report Reviewed and Image Reviewed
[2024-05-31 07:21] LABS: Glucose - Point of Care 128 mg/dl (70-99)
[2024-05-31] MEDS: PROTONIX 40 MG PO (07:56)
[2024-05-31] MEDS: MAGNESIUM OXIDE 500 MG PO (07:56)
[2024-05-31] MEDS: LOPRESSOR 50 MG PO (07:56)
[2024-05-31] MEDS: ZETIA 10 MG PO (07:56)
[2024-05-31] MEDS: NORVASC 5 MG PO (07:56)
[2024-05-31] MEDS: KCL 40 MEQ PO (07:56)
[2024-05-31] MEDS: LOW STRENGTH ASPIRIN 81 MG PO (07:56)
[2024-05-31] MEDS: PACERONE 200 MG PO ×3 (07:56→21:31)
[2024-05-31] MEDS: LIDOCAINE 4% PATCH 1 PATCH TOPICAL (07:56)
[2024-05-31] MEDS: PLAVIX 75 MG PO (07:56)
[2024-05-31] MEDS: NOVOLOG FLEXPEN-MODERATE RESISTANCE SC (07:57)
[2024-05-31] MEDS: NICODERM TRANSDERMAL 21 MG TRANSDERM (07:57)
[2024-05-31] MEDS: LASIX 40 MG IV (07:57)
[2024-05-31] MEDS: FLOMAX 0.4 MG PO ×2 (08:15→17:48)
[2024-05-31] MEDS: NSS (PRESERVATIVE FREE) IV (08:15)
--- NOTE | 2024-05-31 08:45 | PTCARENOTE ---
Assumed care of patient at 0700. Pt is awake, alert, and oriented. No complaints of pain at this time. Pt currently SR HR 80's. 0801 converted to asymptomatic Afib with HR 140's-160's. Pt converted back to SR at 0835 with HR 80's-90's without
intervention. Amio bolus administered after converting to SR. BP 137/87 MAP 98. Epicardial V wire insulated. Pulse oximetry 98% on room air. Pt achieving 2500 on IS, continued use encouraged. Active bowel sounds. Pt tolerated PO diet. Continues to
have flatus and liquid bowel movements. Tamayo catheter removed and pt voiding. Midsternal incision Aquacel dressing CDI. Right leg incision approximated, ecchymotic and N[employer] RECR[employer]ITER. Left arm incision approximated and WOLF. Right upper extremity midline in
place. Pt currently OOB in chair resting comfortably.
[2024-05-31] MEDS: CORDARONE 103 MG IV (08:59)
--- NOTE | 2024-05-31 09:25 | W.PN.CD ---
Today's Communication / Plan
-
Agree with plans
Suspect we will need to start anticoagulation
Ok with Amio
Impression / Plan
-
Background: 63 y/o male admitted with PAD, AAA, CHRIS and moderate/severe admitted with unstable angina and a markedly abnormal stress test, found to have multivessel CAD.
Post op AFib
- Rates a bit fast
S/p CABG and AVR for severe CAD and Severe on 05/17/2024
- 3V CABG (pedicled SANTANA to LAD, LRA to OM, SVG to RI) with Dr. Briggs, 05/24/2025.
- Post op SUSY good, mean AoV 6 mmHg and no AI, normal LVEF
HTN
PAD/carotid vascular disease
-Bilateral >70% carotid artery stenosis, likely overcalled on Duplex compared to CTA. Vascular surgery does not feel carotid revasc needed preop.
-AAA 4.[address] in 2021. AAA will be followed with serial imaging
-Also noted severe R SFA stenosis with claudication. This will be managed outpatient.
Mixed hyperlipidemia
Old CVA, 2021, no AFib on ILR but now with AFibs.
Subjective/Interval History:
No CP or dyspnea, No palps
Physical Exam
Vital Signs/Labs
Vital Signs
Temp Pulse Resp BP Pulse Ox
99.4 F 130 18 137/90 98
05/31/24 08:00 05/31/24 08:30 05/31/24 08:00 05/31/24 08:16 05/31/24 09:18
05/30/24 05/31/24 06/01/24
06:59 06:59 06:59
Actual Weight 114.4 kg 115.4 kg
05/31/24 03:20
05/31/24 03:20
PT 14.1 Sec (11.4-14.6) 05/27/24 16:46
INR 1.11 05/27/24 16:46
APTT 28.8 Sec (23.4-35.0) 05/27/24 16:46
Magnesium 2.3 mg/dl (1.6-2.3) 05/30/24 05:56
Triglycerides 79 mg/dl (10-149) 05/18/24 06:13
LDL Cholesterol, Calc 39 mg/dl 05/18/24 06:13
VLDL Cholesterol, Calc 15 mg/dl (0-30) 05/18/24 06:13
HDL Cholesterol 48 mg/dl 05/18/24 06:13
Physical Exam
Constitutional: No acute distress
EENT: Anicteric
Cardiovascular: Rhythm/rate is irregular, S1S2 is normal and Murmur/rub/gallop absent
Respiratory: Respiratory effort normal and Lungs clear to auscul. (decrease at left base)
GI: Soft and Distention absent
Data Reviewed
-
Date of Service: May 31, 2024
--- NOTE | 2024-05-31 10:11 | W.PN.GS2 ---
Addendum entered and electronically signed by Karl Bailey MD 05/31/24 14:21:
I saw and examined the patient independently.
The resident's note was reviewed and I agree with the note, assessment and plan except where noted below.
Comment: 63-year-old male status post CABG postoperative day 7 with postop ileus, resolving. Still mildly distended on exam but has good bowel function.
Okay for regular/normal post CABG diet.
General surgery will follow peripherally, please call with any questions or concerns.
Original Note:
Today's Communication / Plan
-
Clinically improving from bowel standpoint and tolerating advancing diet. Mild distension, but passing flatus and having bowel movements. Will continue to monitor his progress.
Assessment / Plan
-
ASSESSMENT:
POD#7 s/p AVR/CABG with abdominal distention, most likely due to a probable ileus.
Pt is clinically improving and continues to tolerate dietary advancement. His abdomen is still mildly distended but has been improving. He continues to pass flatus and have BMs.
PLAN:
- Continue to Monitor Diet Tolerance, Bowels, Abdominal Distension
- Continue to follow recommendations per Cardiology.
Subjective Data
-
Date of Service: May 31, 2024
Mr. Fay is a 63M POD#7 s/p AVR/CABG with abdominal distention, most likely due to a probable ileus. Patient has no acute abdominal complaints today, and states that his pain is much improved. He was started on a cholesterol lowering diet
yesterday, and he has been tolerating it well, without any postprandial nausea, vomiting, or abdominal pain. He notes that he has continued to produced flatus and that he continues to have bowel movements that are described as loose but normal
color.
Objective Data
-
Intake and Output
05/30/24 05/31/24 06/01/24
06:59 06:59 06:59
Intake Total 800.1 / 800.1 1796.5 / 1796.5 100 / 100
Output Total 2375 / 2375 2300 / 2300 775 / 775
Balance -1574.9 / -1574.9 -503.5 / -503.5 -675 / -675
Intake:
Oral fluids 1260 / 1260
IV fluids (Total) 800.1 / 800.1 266.5 / 266.5
Amiodarone gtt 200.1 / 200.1 216.5 / 216.5
nss\\ 600 / 600 50 / 50
IV piggybacks 270 / 270 100 / 100
Output:
Gastrointestinal tube output ( 150 / 150
Total)
Lee Sump 150 / 150
Urine, Tamayo 1950 / 1950 1750 / 1750 200 / 200
Urine, Voided 275 / 275 550 / 550 575 / 575
Vital Signs
Temp Pulse Resp BP Pulse Ox
99.4 F 130 18 137/90 98
05/31/24 08:00 05/31/24 08:30 05/31/24 08:00 05/31/24 08:16 05/31/24 09:18
Lab Results
05/31/24 03:20
05/31/24 03:20
Calcium 7.9 mg/dl (8.4-10.2) L 05/31/24 03:20
Magnesium 2.3 mg/dl (1.6-2.3) 05/30/24 05:56
Total Bilirubin 1.3 mg/dl (0.2-1.3) 05/31/24 03:20
Direct Bilirubin 0.3 mg/dl (0.0-0.4) 05/31/24 03:20
AST 85 U/L (17-59) H 05/31/24 03:20
ALT 67 U/L (0-50) H 05/31/24 03:20
Alkaline Phosphatase 52 U/L (38-126) 05/31/24 03:20
Total Protein 5.2 g/dl (6.3-8.2) L 05/31/24 03:20
Albumin 2.9 g/dl (3.5-5.0) L 05/31/24 03:20
Physical Exam
-
General: sitting up in his chair, appears comfortable and in no acute distress.
Respiratory: normal work of breathing
Abdomen: Abdomen is mildly to moderately distended, but subjectively improved. Other yates is it is nontender to palpation, with no guarding, rebound, or rigidity.
Psych: Calm, cooperative.
--- NOTE | 2024-05-31 11:06 | CM ---
Pricing on Eliquis through the patients prescription plan is $339.16 for a 30 day supply. Patient has a $500 deductible and once its met the cost will be $239. Patient qualifies for the $10 copay card. I will place the copay card in the patients
red discharge folder.
--- NOTE | 2024-05-31 11:08 | CM ---
Chart reviewed. Patient is independent of ADLS, lives alone in a 1 STH, 0 MARSHALL, 0 DME. Plan is for the patient to go to his daughters house once medically stable for discharge. Patients daughters address is [address] [place] [address]. Plan is
for the patient to go his daughters house with CT Transitional RN. CM to follow
--- NOTE | 2024-05-31 11:44 | PTCARENOTE ---
Pt currently SR with HR 75, BP 138/66 MAP 86. Pulse oximetry 94% on room air. Pt with no complaints of pain. Pt worked with PT/OT and completed steps. Continues to have liquid BMs. Pt currently resting comfortably OOB in chair.
[2024-05-31] MEDS: NOVOLOG FLEXPEN-MODERATE RESISTANCE 1 UNITS SC ×2 (14:08→17:48)
[2024-05-31 14:11] LABS: Glucose - Point of Care 162 mg/dl (70-99)
[2024-05-31 17:43] LABS: Glucose - Point of Care 165 mg/dl (70-99)
--- NOTE | 2024-05-31 17:52 | PTCARENOTE ---
Pt ambulating independently in room. Took several walks today. Pt remains SR with HR 90's. BP 123/99 MAP 108. Pulse oximetry 98% on room air. Pt with complaints of lower back pain, PRN Tylenol administered.
[2024-05-31] MEDS: TYLENOL 1000 MG PO (17:58)
[2024-05-31] MEDS: LOPRESSOR 75 MG PO (19:51)
[2024-05-31] MEDS: ELIQUIS 5 MG PO (19:51)
[2024-05-31] MEDS: MAGNESIUM OXIDE PO (19:52)
--- NOTE | 2024-05-31 20:00 | PTCARENOTE ---
Received pt from dayshift; pt resting comfortably in bed; pt is AAOX4, denies pain; NSR on monitor, VSS; heart sounds audible, right radial, left ulnar pulses palpable, b/l DP pulses audible on doppler, +1 pitting JORGE LUIS; lung diminished at b/l bases,
spo2 98% on RA; + BS x4 quadrants, abdomen firm, round, non-tender, pt has been having loose stools throughout the day; pt voiding clear yellow urine; surgical sites maintained; PIV and right midline IV maintained; plan is for d/c tomorrow ,
06/01/24. call kwon within reach; will continue to monitor.
[2024-05-31] MEDS: NEURONTIN 100 MG PO (21:31)
[2024-05-31] MEDS: ROXICODONE 5 MG PO (21:31)
[2024-05-31 21:36] LABS: Glucose - Point of Care 142 mg/dl (70-99)
[2024-06-01] VITALS (7 sets, daily range): BP systolic 90–136; BP diastolic 36–63; BMI 34.6
--- NOTE | 2024-06-01 | PTCARENOTE ---
pt assessment unchanged; NSR on monitor, VSS; pt complained of increased back pain, which is chronic,; One time does of 5mg oxycodone and 100mg of gabapentin ordered, see MAR; call kwon within reach; will continue to monitor.
--- NOTE | 2024-06-01 00:36 | W.PN.CT ---
Today's Communication / Plan
-
-pod #8
-reporting BMs, not feeling overly hungry but eating/tolerating
-jenkins DCd, flomax started
-On Eliquis, amio PO
-continue ASA, Plavix, Norvasc for radial graft, Lopressor, Crestor, Zetia
-encourage IS, OOB, ambulate
-DC planning
Assessment / Plan
-
Assessment:
-s/p AVR (#25 Inspiris); CABG x 3 (DARY to LAD, GSV to RI, L Radial artery to OM) on 05/24/[address] Briggs, pod #8
-required re-establishment of CPB w/ repeat cardioplegic arrest for significant venous bleeding laterally and Repair of myocardial & epicardial adipose bleeding w/ numerous pericardial & standard pledgetted sutures
-intraop SUSY: Valve was well seated w/ mean gradient 6mmHg. EF 60-65%, no wma. Nl RV fxn
-Severe 3v CAD
-USA
-Linq implantable loop recorder in place
-Moderate-severe (MG 27 mmHg, MURIEL 0.9 cm2)
-MAC
-AAA (infrarenal, 4.3 cm)
-Hx CVA (embolic) S/P ILR, 03/2022
-Known b/l ICA stenosis (>70 per recent u/s), cleared for surgery by Vascular Surgery
-Active tobacco abuse (1.5 ppd x 40+ yrs)
-Severe PAD with claudication
-HTN
-HLD
-Prediabetes (A1C 6.2)
-Class 1 obesity (BMI 33)
-GERD
-BPH, on Flomax @ home
-S/P Elbow and ankle surgeries
-Acute postop blood loss anemia - s/p 3 pRBC total
-Acute postop thrombocytopenia - s/p 2 units platelets
-Acute postop coagulopathy - s/p 1 FFP
-Acute postop atelectasis
-Acute postop hypovolemia with subsequent hypervolemia
-Acute postop NSVT - tx with Amio drip
-Acute postop urinary retention S/P jenkins reinsertion 05/26
-Acute postop hyponatremia, 128
-Acute postop sinus tachycardia
-Acute postop paralytic ileus- NG tube placed 05/27 and dcd 05/29. Eval by general surgery
-Acute postop renal insufficiency
-Acute postop atrial fibrillation
-Acute postop transaminitis
Subjective
Procedure
-s/p AVR (#25 Inspiris); CABG x 3 (DARY to LAD, GSV to RI, L Radial artery to OM) on 05/24/[address] Briggs
-
Date of Service: June 01, 2024
Objective Data
-
PT 14.1 Sec (11.4-14.6) 05/27/24 16:46
INR 1.11 05/27/24 16:46
APTT 28.8 Sec (23.4-35.0) 05/27/24 16:46
Vital Signs
Vital Signs
Temp Pulse Resp BP Pulse Ox
99.0 F 87 20 132/71 98
05/31/24 19:51 05/31/24 19:51 05/31/24 19:51 05/31/24 19:51 05/31/24 20:00
CT Intake/Output/Weight
05/31/24 05/31/24 06/01/24
06:59 18:59 06:59
Intake Total 480 / 1796.5 100 / 100
Output Total 550 / 2300 775 / 775
Balance -70 / -503.5 -675 / -675
SaO2: 98
Physical Exam
-
General: Awake and Oriented
Cardiovascular: Regular rate & rhythm and No Murmurs
Respiratory: Equal and Decreased Breath Sounds
Sternum: Stable
Incision: Clean, Dry and Intact
Extremities: Edema +1
Data Reviewed
-
Lab Results: Results Reviewed
Medications: Active Meds Reviewed
Chest X-Ray: Report Reviewed
ECG: Report Reviewed
--- NOTE | 2024-06-01 04:00 | PTCARENOTE ---
Pt assessment unchanged; NSR on monitor, VSS; AM labs drawn and sent; call kwon within reach; will continue to monitor.
[2024-06-01 05:02] LABS: Hematocrit 23.8 % (39.0-52.0); Hemoglobin 8.2 g/dL (13.0-18.0); Mean Corp Hgb Conc. 34.5 g/dL (33.0-37.0); Mean Corpuscular Hgb 30.7 pg (27.0-31.0); Mean Corpuscular Volume 89.1 fL (80.0-94.0); Mean Platelet Volume 9.6 fL (7.4-10.4); Platelet Count 164 10^3/uL (130-400); Red Blood Cell Count 2.67 10^6/uL (4.70-6.10); Red Cell Dist. Width 14.8 % (11.5-14.5); White Blood Cell Count 7.2 10^3/uL (4.8-10.8)
[2024-06-01 05:25] LABS: ALT (SGPT) 53 U/L (0-50); AST (SGOT) 49 U/L (17-59); Albumin 2.6 g/dl (3.5-5.0); Alkaline Phosphatase 60 U/L (38-126); Blood Urea Nitrogen 15 mg/dl (9-20); Calcium 7.6 mg/dl (8.4-10.2); Carbon Dioxide 26 mmol/L (22-30); Chloride 102 mmol/L (98-107); Direct Bilirubin 0.1 mg/dl (0.0-0.4); Estimated Creatinine Clearance > 125 ml/min; Glucose 107 mg/dl (70-99); Potassium 3.4 mmol/L (3.5-5.1); Sodium 130 mmol/L (135-145); Total Bilirubin 0.9 mg/dl (0.2-1.3); Total Protein 4.8 g/dl (6.3-8.2); eGFR > 60.00
[2024-06-01] MEDS: PACERONE 200 MG PO (07:18)
[2024-06-01] MEDS: KCL 40 MEQ PO ×2 (07:18→07:53)
--- NOTE | 2024-06-01 07:36 | W.DCSUMMARY ---
Discharge Summary
Discharge Data
Date of Admission: 05/17/24
Date of Discharge: 06/01/24
-
Pending Results: No
Hospital Course
Primary care physician: Fredo Durham
Outpatient seat installer: Rosalba Vernon
Inpatient consultants: [facility] Cardiology, vascular surgery, colo-rectal surgery, urology
Procedures:
1. Aortic valve replacement and coronary artery bypass grafting
Primary Diagnosis:
1. [id number]-[id number] aortic stenosis
Secondary Diagnoses:
1. MVCAD w/ unstable angina
2. Tobacco abuse-current smoker
3. PAD.
4. infra-renal AAA 4.5cm
6. B/L carotid artery stenosis (>70%)
7. Hx of embolic CVA
8. Acute surgical blood loss anemia
9. Acute postop urinary retention
10. Acute postop ileus
11. Postoperative paroxysmal atrial fibrillation/atrial flutter
12. Postop mild transaminitis
HPI: 63-year-old male presented to [facility] emergency room on 05/17/24 for evaluation of abnormal stress test performed earlier in the day. Patient was called at home by cardiology office stating that he should come to the ER. Patient
was admitted for IV nitroglycerin and IV heparin and underwent left heart cath which confirmed multivessel disease. TTE on 05/18 reported moderate to severe aortic stenosis. Carotid US reported >70% ICA stenosis and vascular team was consulted and
cleared patient (@ higher stroke risk) for cardiac surgery.
Hospital course: On 05/24, the patient underwent an aortic valve replacement #25 mm Inspiris and CABG x 3 with SANTANA to LAD, left radial to OM, right saphenous vein graft to ramus intermedius by Dr. Juan Jose Briggs. Patient required a second pump to
address venous bleeding. Patient received 1 packed red blood cell, and 1 platelet intraoperatively. Patient received amiodarone infusion for nonsustained VT. Patient returned to CVICU on dobutamine, Cardizem, Precedex, and insulin. Overnight the
patient received 1 FFP and 1 platelet. On postoperative day #1, Norvasc was initiated for radial patency and will continue for a period of 3 months postop. Amiodarone was changed to oral form. Patient received an additional 1 unit PRBC for
hemoglobin 8.1. Dobutamine was weaned off. On postoperative day #2, chest tubes were removed and lisinopril 5 mg started for systolic blood pressure in 140s. Reglan was given for belching. On postoperative day #3, patient developed urinary
retention overnight requiring Tamayo reinsertion. Patient complained of abdominal bloating and chest x-ray showed ileus. General surgery was consulted and patient made n.p.o. A nasogastric tube was placed for bowel decompression. On postoperative
day #4, patient received additional 1 PRBC for hemoglobin 7.3. Patient developed atrial fibrillation with rapid ventricular response and received Lopressor, amnio bolus, and infusion. Patient converted to sinus rhythm at 02 100 on 7. On 722,
patient was advanced to the [facility] and subsequently patient continued to ambulate with cardiac rehab. Patient had liquid stools but was continuing to belch. LFTs were mildly elevated with peak ALT of 89, decreasing to 53u/L on discharge. Patient
received IV diuretic on / abdominal x-ray showed improving bowel loops and patient advanced to oral diet and NG tube removed. On postoperative day #1, oral meds were resumed and beta-ruben dose increased. Patient again developed A-fib/flutter
with ventricular rates in the 130s. Patient received 150 mg amnio IV bolus and patient converted to sinus rhythm. Eliquis was initiated for paroxysmal atrial fibrillation and amiodarone 200 mg twice daily will continue on discharge for 2 weeks
ultimately decreasing to 200 mg daily. Tamayo catheter was removed and patient voided without difficulty. Two-view chest x-ray reported no pleural effusion or pneumothorax. On postoperative day #8, patient's hemoglobin was 8.2 (stable). Potassium
of 3.4 was repleted with 80 mg of oral potassium. 2 epicardial ventricular pacing leads were clipped to skin level. Patient ambulated with cardiac rehab and deemed stable for discharge to home. Prescription for Lasix 20 mg p.o. daily x 20 days
given for postoperative weight gain (weight on day of discharge 118 5 kg and baseline weight is 109 kg) and transitional care RN will follow-up for BMP in 1 week. Patient instructed to pursue lifelong avoidance of tobacco.
Home medication changes:
Stop:
Cipro eyedrops (completed preadmission)
Lisinopril
New:
Furosemide
Amiodarone
Amlodipine
Eliquis
Metoprolol succinate 25 mg to metoprolol tartrate 75 mg twice daily
Nicotine patch
Prilosec to Protonix 40 mg daily
Discharge Plan
-
Patient Disposition: Home (Routine Discharge)
Discharge Diagnosis/Procedures: CAD/ s/p AVR/CABG
Condition: Good
Diet: Low Cholesterol, Low Sodium and Diabetic, Carb Controlled
Activity: No strenuous activity
Driving Restrictions: Not until seen by your Dr
Bathing Restrictions: OK to Shower
Blood Work: BMP in 1 week
Other Services: Cardiac Rehab
Specialty Instructions: Weigh Daily- Call MD for wt gain/loss 3 lbs overnight/5 lbs in 1 week
Activity Restrictions/Additional Instructions:
Wound Care Instructions
Gluteal cleft/sacrum: clean with soap and water, silicone foam change q 2-3 days and prn soilage
Take air cushion home to use when sitting, frequent shifts in position
increase protein in diet
stop smoking
Follow up at wound care center if not healing, call for an appointment.
ACTIVITY:
-No strenuous activity: no heavy lifting, pushing, pulling anything over 15 pounds for one month
-continue to use stairs as tolerated
DRIVING RESTRICTIONS:
-No driving for one month or until approved by your surgeon
WOUND CARE:
-Shower daily. Use soap & water.
-No lotions, creams or powders on incision area.
DIET:
-continue a low fat/low cholesterol diet.
-IF you are diabetic, continue carb controlled diet.
CARDIAC REHAB:
-Please make appointment to start in 5-6 weeks with your local hospital program. (See Cardiac Rehabilitation Discharge Booklet).
SPECIALTY INSTRUCTIONS:
-Weigh yourself daily. Call your physician for any weight gain/loss of 3 lbs overnight or 5 lbs in one week.
-REPORT any clicking noise or uneven appearance of your sternum to your surgeon immediately.
-If you smoke, you are instructed to quit. The [place] smoking hotline phone number is [phone]
Referrals:
CT Transitional Care Nurse [Outside] (The Cardiothoracic Transitional Care Nurse will call you to set up a visit in 1-2 days.)
[facility]. Cardiac Rehab [Outside] - 07/06/24 1:00 pm
(Cardiac Rehab Orientation appointment is on 07/06/2024 @ 1:00pm
The Cardiac Rehab gym is located on the first floor of the [facility].)
Fredo Durham MD [Family Provider] -
Qing Michelle NP [Specified Professional Personl] - 07/11/24 9:00 am
Aurelio Dubois MD [Active] - 06/23/24 1:00 pm
Juan Jose Briggs MD [Active] - 07/04/24 2:00 pm
Prescriptions:
New
Eliquis 5 mg Tablet
5 mg PO BID Qty: 60 1RF
nicotine 21 mg/24 hr Patch 24 Hour
21 mg transdermal DAILY Qty: 30 0RF
amlodipine 5 mg Tablet
5 mg PO DAILY Qty: 60 2RF
pantoprazole 40 mg Tablet,Delayed Release (Dr/Ec)
40 mg PO DAILY Qty: 90 0RF
metoprolol tartrate 50 mg Tablet
75 mg PO BID Qty: 60 1RF
amiodarone 200 mg tablet
200 mg PO BID Qty: 60 1RF
Rx Instructions:
200mg BID x 2 weeks, then 200mg daily
furosemide [Lasix] 20 mg tablet
20 mg PO DAILY Qty: 20 0RF
Continued
ezetimibe [Zetia] 10 MG tablet
10 mg PO DAILY
tamsulosin [Flomax] 0.4 mg Capsule
0.4 mg PO DAILY Qty: 0 0RF
rosuvastatin 40 mg Tablet
40 mg PO DAILY Qty: 0 0RF
aspirin 81 MG tablet,chewable
81 mg PO DAILY 30 Days Qty: 30 0RF
pregabalin 200 mg Capsule
200 mg PO DAILY Qty: 0 0RF
Discontinued
lisinopril 20 MG tablet
20 mg PO DAILY
metoprolol succinate 25 mg Tablet Extended Release 24 Hr
25 mg PO DAILY
Prilosec OTC
40 mg PO DAILY PRN (Reason: acid reflux)
ciprofloxacin
2 drp RIGHT EYE QID
Rx Instructions:
due to take for 5 days for rust removal right eye
Discharge Orders:
Discharge Patient (As Directed); Ordered 06/01/24
Ordered By: Natty Beatty
Care Plan Goals
Care Plan Goals:
Problem: Readiness for enhanced knowledge related to diagnosis and treatment plan
Goal: Understand your diagnosis and treatment plan needs, including medications if applicable.
Instructions: Know your diagnosis, underlying causes and treatment plan options, including medications if applicable. Consult with your health care team to learn about your diagnosis and treatment plan, including medications if applicable.
Discharge Date and Time
Print Language: BAHAMIAN
[2024-06-01] MEDS: ZETIA 10 MG PO (07:52)
[2024-06-01] MEDS: CRESTOR 40 MG PO (07:52)
[2024-06-01] MEDS: LOPRESSOR 75 MG PO (07:52)
[2024-06-01] MEDS: NORVASC 5 MG PO (07:52)
[2024-06-01] MEDS: PROTONIX 40 MG PO (07:53)
[2024-06-01] MEDS: MAGNESIUM OXIDE 500 MG PO (07:53)
[2024-06-01] MEDS: NICODERM TRANSDERMAL 21 MG TRANSDERM (07:53)
[2024-06-01] MEDS: LOW STRENGTH ASPIRIN 81 MG PO (07:53)
[2024-06-01] MEDS: ELIQUIS 5 MG PO (07:53)
[2024-06-01] MEDS: NOVOLOG FLEXPEN-MODERATE RESISTANCE SC (07:54)
[2024-06-01] MEDS: LIDOCAINE 4% PATCH 1 PATCH TOPICAL (07:54)
[2024-06-01] MEDS: NSS (PRESERVATIVE FREE) IV (07:54)
--- NOTE | 2024-06-01 08:25 | PTCARENOTE ---
Assumed care of patient from warehouse worker 2nd shift RN. RACHELEO x 3. C/o chronic back pain. but no other complaints noted. SR on monitor. Room air 98% . Denies cough or SOB. Abdomen distended with positive bowel sounds t/o , states he is still having bowel
movements but less loose. Voiding w/o issue. Ulnar pulse palpable on LT arm. Rt radial pulse palpable. Bilateral lower extremities with plus 1 pitting edema. Pulses palpable. Plan for discharge later today.
--- NOTE | 2024-06-01 08:56 | W.PN.UPDATE ---
Update Note
Progress Note Update
2 epicardial ventricular wires clipped to skin level.
--- NOTE | 2024-06-01 09:05 | PTCARENOTE ---
Rt arm midline removed , pressure applied x 5 minutes. Hemostasis achieved. Assisted into shower. Tolerated w/o issue. Surgical Aquacel removed. Incision well approximated and scabbed.
--- NOTE | 2024-06-01 10:33 | PTCARENOTE ---
Discharge instructions reviewed with patient and Daughter. Questions answered. Wheeled to car by volunteer.
== END 2024-06-01 10:40 | disposition home or self-care (01) | DRG 217 ==
LOC: CVICU 22:29
PROVIDERS: Anesthesiology; Clinical Nurse Specialist Acute Care; Clinical Nurse Specialist Family Health; Hospitalist; Internal Medicine Cardiovascular Disease; Nurse Practitioner; Physician Assistant Medical; Student in an Organized Health Care Education/Training Program; ADMITTING PHYSICIAN Internal Medicine; ATTENDING PHYSICIAN Thoracic Surgery (Cardiothoracic Vascular Surgery); CONSULT PHYSICIAN Internal Medicine Critical Care Medicine; CONSULT PHYSICIAN Surgery Vascular Surgery; CONSULT PHYSICIAN Urology; EMERGENCY PHYSICIAN Emergency Medicine; FAMILY PHYSICIAN Family Medicine; OTHER PHYSICIAN Internal Medicine; OTHER PHYSICIAN Surgery
PROC: 4A023N7 Measurement of Cardiac Sampling and Pressure, Left Heart, Percutaneous Approach (ICD-10-PCS; 2024-05-18)
PROC: B2111ZZ Fluoroscopy of Multiple Coronary Arteries using Low Osmolar Contrast (ICD-10-PCS; 2024-05-18)
PROC: 4A033BC Measurement of Arterial Pressure, Coronary, Percutaneous Approach (ICD-10-PCS; 2024-05-18)
PROC: B24BZZ4 Ultrasonography of Heart with Aorta, Transesophageal (ICD-10-PCS; 2024-05-24)
PROC: 06BP4ZZ Excision of Right Saphenous Vein, Percutaneous Endoscopic Approach (ICD-10-PCS; 2024-05-24)
PROC: 30233R1 Transfusion of Nonautologous Platelets into Peripheral Vein, Percutaneous Approach (ICD-10-PCS; 2024-05-24)
PROC: 02100ZC Bypass Coronary Artery, One Artery from Thoracic Artery, Open Approach (ICD-10-PCS; 2024-05-24)
PROC: 021009W Bypass Coronary Artery, One Artery from Aorta with Autologous Venous Tissue, Open Approach (ICD-10-PCS; 2024-05-24)
PROC: 02RF08Z Replacement of Aortic Valve with Zooplastic Tissue, Open Approach (ICD-10-PCS; 2024-05-24)
PROC: 02QA0ZZ Repair Heart, Open Approach (ICD-10-PCS; 2024-05-24)
PROC: 30233K1 Transfusion of Nonautologous Frozen Plasma into Peripheral Vein, Percutaneous Approach (ICD-10-PCS; 2024-05-24)
PROC: 5A1221Z Performance of Cardiac Output, Continuous (ICD-10-PCS; 2024-05-24)
PROC: 30233N1 Transfusion of Nonautologous Red Blood Cells into Peripheral Vein, Percutaneous Approach (ICD-10-PCS; 2024-05-24)
PROC: 02100AW Bypass Coronary Artery, One Artery from Aorta with Autologous Arterial Tissue, Open Approach (ICD-10-PCS; 2024-05-24)
PROC: 03BC4ZZ Excision of Left Radial Artery, Percutaneous Endoscopic Approach (ICD-10-PCS; 2024-05-24)
DX: I35.0 Nonrheumatic aortic (valve) stenosis (principal); D62 Acute posthemorrhagic anemia; I25.110 Atherosclerotic heart disease of native coronary artery with unstable angina pectoris; I48.92 Unspecified atrial flutter; I97.418 Intraoperative hemorrhage and hematoma of a circulatory system organ or structure complicating other circulatory system procedure; I47.20 Ventricular tachycardia, unspecified; K91.89 Other postprocedural complications and disorders of digestive system; K56.0 Paralytic ileus; D68.8 Other specified coagulation defects; J98.11 Atelectasis; E87.1 Hypo-osmolality and hyponatremia; I71.43 Infrarenal abdominal aortic aneurysm, without rupture; I65.23 Occlusion and stenosis of bilateral carotid arteries; R33.8 Other retention of urine; I48.0 Paroxysmal atrial fibrillation; R74.01 Elevation of levels of liver transaminase levels; R94.39 Abnormal result of other cardiovascular function study; D69.59 Other secondary thrombocytopenia; E86.1 Hypovolemia; E87.70 Fluid overload, unspecified; N28.9 Disorder of kidney and ureter, unspecified; Y83.8 Other surgical procedures as the cause of abnormal reaction of the patient, or of later complication, without mention of misadventure at the time of the procedure; I65.01 Occlusion and stenosis of right vertebral artery; E78.2 Mixed hyperlipidemia; I10 Essential (primary) hypertension; G89.29 Other chronic pain; E66.9 Obesity, unspecified; F17.210 Nicotine dependence, cigarettes, uncomplicated; K21.9 Gastro-esophageal reflux disease without esophagitis; N40.1 Benign prostatic hyperplasia with lower urinary tract symptoms; G62.9 Polyneuropathy, unspecified; F12.90 Cannabis use, unspecified, uncomplicated; I70.211 Atherosclerosis of native arteries of extremities with intermittent claudication, right leg; R73.03 Prediabetes; R25.2 Cramp and spasm; J43.8 Other emphysema; I25.82 Chronic total occlusion of coronary artery; Z68.34 Body mass index [BMI] 34.0-34.9, adult; M54.9 Dorsalgia, unspecified; Z86.73 Personal history of transient ischemic attack (TIA), and cerebral infarction without residual deficits; Z79.82 Long term (current) use of aspirin
CPT/HCPCS: 88305; 88311; 36600; 71045; 71046; 71250; 74018; 74177; 76770; 78452; 80048; 80053; 80061; 80076; 80306; 81003; 82140; 82150; 82248; 82330; 82550; 82565; 82805; 82810; 82947; 82962; 83036; 83605; 83615; 83690; 83735; 84132; 84302; 84484; 84520; 85014; 85018; 85025; 85027; 85049; 85347; 85610; 85730; 86803; 86850; 86900; 86901; 86920; 93005; 93017; 93306; 93312; 93320; 93325; 93458; 93571; 93880; 93922; 93925; 93970; 94002; 94010; 96374; 97161; 97164; 97166; 97530; 97535; 99285; 99406; A9500; C1769; C1894; J2785; P9016; P9045; P9059; P9073; Q9967

== ENCOUNTER → 2024-06-19 12:36 | Outpatient (REF) | payer OTHER, SELFPAY | LOC: WOUND 12:36 | PROVIDERS: ATTENDING PHYSICIAN Surgery; FAMILY PHYSICIAN Family Medicine | DX: L89.153 Pressure ulcer of sacral region, stage 3 (principal); I25.110 Atherosclerotic heart disease of native coronary artery with unstable angina pectoris; I48.91 Unspecified atrial fibrillation; I65.23 Occlusion and stenosis of bilateral carotid arteries; I10 Essential (primary) hypertension; F17.200 Nicotine dependence, unspecified, uncomplicated; Z79.01 Long term (current) use of anticoagulants; Z86.73 Personal history of transient ischemic attack (TIA), and cerebral infarction without residual deficits | CPT/HCPCS: 99204 ==

== ENCOUNTER → 2024-06-26 09:17 | Outpatient (REF) | payer OTHER, SELFPAY | LOC: WOUND 09:17 | PROVIDERS: ATTENDING PHYSICIAN Surgery; FAMILY PHYSICIAN Family Medicine | DX: L89.153 Pressure ulcer of sacral region, stage 3 (principal); I25.110 Atherosclerotic heart disease of native coronary artery with unstable angina pectoris; I48.91 Unspecified atrial fibrillation; I65.23 Occlusion and stenosis of bilateral carotid arteries; I10 Essential (primary) hypertension; Z86.73 Personal history of transient ischemic attack (TIA), and cerebral infarction without residual deficits; Z79.01 Long term (current) use of anticoagulants; F17.200 Nicotine dependence, unspecified, uncomplicated | CPT/HCPCS: 97597 ==

== ENCOUNTER → 2024-06-26 14:22 | Outpatient (REF) | payer OTHER, SELFPAY | LOC: HWRAD 14:22 | PROVIDERS: ATTENDING PHYSICIAN Surgery Vascular Surgery; FAMILY PHYSICIAN Family Medicine | DX: I65.23 Occlusion and stenosis of bilateral carotid arteries (principal); Z01.818 Encounter for other preprocedural examination | CPT/HCPCS: 70496; 70498; Q9967 ==

== ENCOUNTER 2024-06-28 08:17 | Inpatient (IN) | payer OTHER, SELFPAY ==
--- NOTE | 2024-06-26 13:53 | PTCARENOTE ---
Abn ECG, Dr. John notified, no further actions requested.
[2024-06-28] VITALS (11 sets, daily range): BP systolic 103–157; BP diastolic 49–78; BMI 32.6
[2024-06-28 08:41] LABS: Hematocrit 39.9 % (39.0-52.0); Hemoglobin 12.8 g/dL (13.0-18.0); Mean Corp Hgb Conc. 32.1 g/dL (33.0-37.0); Mean Corpuscular Hgb 27.5 pg (27.0-31.0); Mean Corpuscular Volume 85.6 fL (80.0-94.0); Mean Platelet Volume 9.5 fL (7.4-10.4); Platelet Count 235 10^3/uL (130-400); Red Blood Cell Count 4.66 10^6/uL (4.70-6.10); Red Cell Dist. Width 13.9 % (11.5-14.5); White Blood Cell Count 5.8 10^3/uL (4.8-10.8)
[2024-06-28 08:51] LABS: Blood Urea Nitrogen 18 mg/dl (9-20); Calcium 9.4 mg/dl (8.4-10.2); Carbon Dioxide 29 mmol/L (22-30); Chloride 101 mmol/L (98-107); Estimated Creatinine Clearance 106 ml/min; Glucose 122 mg/dl (70-99); Potassium 5.1 mmol/L (3.5-5.1); Sodium 137 mmol/L (135-145); eGFR > 60.00
[2024-06-28 08:53] LABS: INR 1.05; PT 13.7 Sec (11.4-14.6)
[2024-06-28 08:54] LABS: APTT 31.4 Sec (23.4-35.0)
[2024-06-28] MEDS: BACTROBAN NASAL 1 GRAM NASAL (09:22)
[2024-06-28] MEDS: NSS 500 IV (09:22)
[2024-06-28] MEDS: PERIDEX 0.12% ORAL RINSE 15 ML PO (09:22)
--- NOTE | 2024-06-28 09:33 | W.SUR.PREOP ---
Pre-Operative Surgical Note
-
I have examined this patient prior to the performance of the scheduled procedure.
The patient's condition is unchanged from the time of the current History and
Physical and the patient is able to undergo the scheduled procedure.
--- NOTE | 2024-06-28 09:34 | OR.RPT ---
Addendum entered and electronically signed by Aurelio Dubois MD 06/28/24 09:48:
PLEASE DISREGARD BELOW NOTE - THIS WAS ENTERED IN ERROR.
Original Note:
Operative Report
Operative Report
PROCEDURE DATE: 06/28/2024
Preoperative diagnosis: Severe critical left carotid artery stenosis, concern for preocclusive.
Postoperative diagnosis: same
Procedure:
1. Open exposure of left common carotid artery.
2. Transcarotid left carotid artery revascularization with stent (TCAR) with Enroute 9mm x 7mm tapered x 40mm self-expanding stent, and utilizing Enroute GIS ANALYST DEVELOPER flow reversal intraprocedural neuro protection.
3. Intraoperative EEG/SSEP monitoring.
4. Supervision and interpretation
CPT code 24632, SVS VQI TCAR #[id number]
Surgeon: Silvino
Spray I Painter: ANTWAN [place], required for all aspects of procedure including assistance with traction/countertraction, following a suture line, assistance with closure.
Complications: None
Anesthesia: General
Indications for procedure:
Severe left internal carotid artery stenosis with significantly low flow noted distal to the stenosis. Concern for preocclusive type stenosis. Risk/benefits/alternatives of transcarotid artery revascularization with stent (TCAR) discussed.
Patient understood all wish to proceed.
Description of procedure:
Patient was identified brought to the operating room placed on the table in supine position. After the adequate administration of anesthesia and perioperative antibiotics she was prepped and draped in the standard surgical fashion. A standard
preoperative timeout was undertaken and everybody was in agreement the plan. A longitudinal incision was made at the base of the left neck between the heads of the sternocleidomastoid muscle just superior to the clavicle. This incision was carried
through the skin subcutaneous tissue. Using the electrocautery dissection was carried through the platysma muscle layer and then in the plane between the heads of the sternocleidomastoid muscle. Then using a combination of sharp dissection with
the Metzenbaum scissors and electrocautery I dissected along the anterior medial border of the internal jugular vein. The common carotid artery was identified (noted to be fairly deep) and carefully dissected away from the surrounding structures
take great care to avoid any injury to the structures. The vagus nerve was noted to be anterior lateral to the artery and was protected from harm's way. A vessel loop was passed around the common carotid artery. The common carotid artery was
dissected circumferentially only in the proximal portion of the exposed artery, and the anterior surface was dissected for another 2 cm. Next, a 5-0 Prolene pursestring stitch was placed on the anterior middle surface of the common carotid artery
at the anticipated puncture/cannulation site. The patient was given 7000's of intravenous heparin. Subsequently the patient was given 2000 additional units to maintain ACT in the target range.
Next, the right common femoral vein was punctured with a micropuncture kit under direct duplex ultrasound guidance. Venous angiography through micropuncture sheath confirmed appropriate venous access. An 8 Kinyar[place]anda venous sheath was placed over
0.035 inch wire into the vein. The sheath was flushed.
Next, while maintaining anterior tension on the vessel loop (single looped), the common carotid artery was punctured with a micropuncture needle (premarked) to only 1 cm and a premarked 0.014 inch wire was inserted and then the needle was exchanged
out for a premarked micropuncture sheath and advanced to 3 cm zana. The dilator and wire were then removed. Left anterior oblique angiogram was performed. This delineated the carotid bifurcation. It confirmed the severe stenosis in the proximal
internal carotid artery. The carotid bifurcation was marked on the screen. I then advanced a 8.035 inch wire with a J curve at the tip. This was stopped just short of the bifurcation. I then exchanged the micropuncture sheath out for the 8
[place] [place] [address] sheath, which was advanced to the footplate under fluoroscopy with careful vigilance of the distal tip of the wire. Once advanced to the footplate, the introducer and wire were removed. The tension from the vessel loop
was released. And the sheath was secured to the skin with silk suture. The sheath was burped back and also flushed carefully. Next repeat imaging was undertaken confirming the best angulation of the gantry for imaging. At this point, the
angioplasty balloon and stent were prepared. We paused to confirm the plan regarding balloon/stent, and confirmed adequate ACT over 300. In addition we confirmed optimization of blood pressure with our anesthesiology colleagues. Next, I connected
the arterial sheath to the venous sheath with the filter section. As such passive flow reversal was initiated. There were no evidence of any EEG or SSEP changes. We flushed the venous sheath to confirm adequate passive flow reversal.
At this point given that we were otherwise ready, I tightened my double looped vessel loop on the common carotid artery thereby initiating active flow reversal. Again I flushed the venous sheath to confirm active flow reversal. There was no EEG or
SSEP changes. I now used a precurved 0.014 inch wire and roadmap assisted fluoroscopy guidance to cannulate the internal carotid artery carefully. I was able to gain access into the distal cervical/proximal intracranial internal carotid artery.
Next I used a balloon which was a 5 mm x 30 mm Cordis standard angioplasty balloon. I then pre-angioplastied the stenosis. The patient had been given glycopyrrolate to prevent any baroreceptor mediated bradycardia. The patient's blood pressure
had also been optimized after discussion with our anesthesiology colleagues prior to initiation of flow reversal. I then quickly exchanged out my balloon catheter for the stent (9mm x 7mm tapered x 40mm Enroute stent). The stent was positioned
under roadmap guidance. When I was happy with the positioning I then unsheathed in the standard fashion. The stent delivery device was then removed. Completion angiography was undertaken after 1 to 2 minutes of waiting after deployment of the
stent for the flow reversal to take effect. Completion angiogram demonstrated excellent result and it was done in 2 obliquities to confirm. No residual stenosis was noted. Good intracranial filling was noted. At this point I was very satisfied.
The 0.014 inch wire was then removed from the internal carotid artery. Next, the common carotid artery was unclamped. Finally I disconnected the flow reversal circuit.
Now, I tied down my 5-0 Prolene pursestring suture on the common carotid artery while removing the sheath. We gave protamine to reverse the heparin. I irrigated the incision site and confirmed full hemostasis. Then, we closed in layers using
single [id number] 2-0 Vicryl to reapproximate the sternocleidomastoid heads. Then used 3-0 Vicryl platysma muscle running layer followed by 4 Monocryl subcuticular running stitch. Dermabond was applied. The femoral vein sheath was also
removed and manual pressure was applied to that site and hemostasis was noted there as well. The patient tolerated the procedure well. She awoke moving all 4 extremities to command.
--- NOTE | 2024-06-28 12:58 | W.SUR.POST ---
Surgical Immediate Post Op
Note
Pre Op Diagnosis: Carotid stenosis
Post Op Diagnosis: Same
Procedure Performed: Left carotid endarterectomy with bovine pericardial patch angioplasty and EEG monitoring
Primary Surgeon: Silvino
Assist: Damion CASSIDY
Anesthesia: General
Estimated Blood Loss: 15 cc
Fluids: See anesthesia flowsheet
Drains/Shunts: None
Specimens/Cultures: Carotid plaque
Doppler/Duplex/Angio (Y/N): Y
Complications: None
Operative Findings: Woke from anesthesia moving all extremities
[2024-06-28 13:52] LABS: INR 1.18; PT 15.1 Sec (11.4-14.6)
[2024-06-28 13:53] LABS: APTT 30.5 Sec (23.4-35.0)
--- NOTE | 2024-06-28 13:54 | OR.RPT ---
Operative Report
Operative Report
PROCEDURE DATE: 06/28/2024
Preoperative diagnosis: Symptomatic critical left carotid artery stenosis.
Postoperative diagnosis: Same
Procedure: Left carotid endarterectomy with bovine pericardial patch angioplasty and intraoperative EEG/SSEP monitoring.
Surgeon: Silvino
Narrow Fabric Loom Fixer: ANTWAN Bruno, required for all aspects of procedure including assistance with traction/countertraction, following of suture line, assistance with closure.
Complications: None
Anesthesia: General
Indications for procedure:
Symptomatic left carotid stenosis with clear-cut left amaurosis symptoms 4 days prior to my seeing him in the office. Severe carotid stenosis on the left side confirmed. Mixed, but significant burden of soft plaque noted on CT scan imaging.
Risk/benefit/alternatives of left carotid endarterectomy fully discussed. Patient understood all wish to proceed.
Description of procedure:
Patient was identified brought to the operating room placed on the table in supine position. After the adequate administration of anesthesia and perioperative antibiotics he was prepped and draped in the standard surgical fashion. A standard
preoperative timeout was undertaken and everybody was in agreement the plan. A standard longitudinal incision was made in the left neck that was carried through the skin subcutaneous tissue. Using the electrocautery dissection was carried through
the platysma muscle layer and then alongside the anterior medial border of the sternocleidomastoid muscle. Then using a combination of sharp dissection with the Metzenbaum scissors and electrocautery I dissected along the anterior medial border of
the internal jugular vein. The common facial vein branch and an additional branch were ligated between silk ties and then divided. I then deepened my retraction. The common carotid artery was identified and carefully dissected away from the
surrounding structures take great care to avoid any injury to the structures. Upon initiating dissection of the common carotid artery, I noted that the tissues were very inflammatory/sticky. Almost like dissecting scar tissue. Suggested that the
plaque had created a significant inflammatory reaction. A vessel loop was passed around the common carotid artery which was double looped, but not yet tightened. Note the vagus nerve was visualized and protected from harm's way. It was located in
its usual location posterior lateral to the common carotid artery. There was a ansa cervicalis branch that was directly on the carotid and then coursed across it. I carefully dissected this off and was able to preserve it. I then continued my
dissection up the common carotid artery to the bulb staying only on the anterior surface of the carotid artery. Again noted dense inflammatory reaction resulting in sticky/difficult dissection. Then I carried the dissection up to the internal
carotid artery and then to the distal internal carotid artery. I identified where it was soft and carefully circumferentially dissected the internal carotid artery with minimal mobilization and passed a vessel loop around it. Note the hypoglossal
nerve was visualized and preserved from harm's way. The patient was given an appropriate dose of heparin 10,000 units. Next I dissected the anterior surface of the external carotid artery and superior thyroid branches. These were then carefully
circumferentially dissected with minimal mobilization and vessel loops passed around these which were double looped but not yet tightened. After 3 minutes of heparin circulation time and confirmation of optimization of the blood pressure with my
anesthesiology colleagues, I clamped the distal internal carotid artery where it was soft. There was no immediate EEG or SSEP changes. After 1 minute of test clamp time there was no changes noted. Therefore at this point, the vessel loops on the
external carotid artery and superior thyroid branches were tightened and the common carotid artery was clamped where it was soft proximally. An arteriotomy was made on the common carotid artery with an 11 blade and extended using a Diggs scissor.
I then extended the arteriotomy onto the mid to distal internal carotid artery. I immediately encountered severe hemorrhagic friable plaque centrally. The plaque was densely adherent to the intima on its outer edge (the outer edge of the plaque).
Therefore there was a central necrotic core of friable/necrotic plaque/hemorrhagic plaque. And peripherally dense adherent plaque. A [place] was then used to endarterectomized the plaque. I tried initially to endarterectomized in the proximal
internal carotid artery and feathered out to a nice clean endpoint. However due to the adherence of the intima posteriorly, I could not achieve an endpoint. Therefore I next endarterectomized the intima back to normal intima in the common carotid
artery, and the intima was cut flush there. I then grasped the plaque and everted plaque out of the origin of the external carotid artery. Next I tried to achieve a distal endpoint. Again this proved challenging secondary to the dense adherent
nature of the intimal connection portion of the plaque. An endarterectomy plane was created, and the plaque was then endarterectomized. Distally I had a great deal of time feathering the plaque out to a nice clean endpoint in the internal carotid
artery. I had to extend my dissection of the internal carotid artery slightly distally and move my clamp further distally. The posterior intima was so adherent at the endpoint of the plaque that I could not feathered out the distal posterior
aspect of the plaque and had to cut it flush distally. The plaque was then sent off for specimen. The origin of the external carotid artery was carefully visualized and any fine debris were removed with fine forceps. Proximal and distal endpoints
were then carefully inspected. Proximal endpoint appeared nicely adherent. Distally there was still some posterior thickening of the intima, but no residual plaque or necrotic debris. The endpoint was actually very reasonable now. In order to be
sure, I used 3 tacking posterior 7-0 Prolene suture. Any fine debris at the endpoints had been removed with fine forceps. Next any fine debris were removed throughout the endarterectomy bed with fine forceps. I then flushed heparinized saline. I
was very satisfied. Then, I used a bovine pericardial patch to sew a patch angioplasty with a running 6-0 Prolene suture. Prior to completing and tying down my suture line, I backbled sequentially each branch and reclamped each branch prior to
unclamping the next branch. I then irrigated with heparinized saline. Then I completed and tied down my suture line. We then restored flow in the common carotid and external carotid arteries. Finally, we released flow in the internal carotid
artery. There was excellent pulsatile flow in all 3 vessels. There was an excellent Doppler signal in the internal carotid artery distal to the patch with a good normal low resistance Doppler signal. There was a good Doppler signal in the
external carotid artery as well. A single 6-0 Prolene [id number] sutures was placed along a single bleeding point along the suture line. Protamine was given to reverse the heparin. Hemostasis was completely achieved. We then irrigated and
confirmed full hemostasis. We then closed in layers with 2-0 Vicryl layer to reapproximate the sternocleidomastoid muscle, followed by 3-0 Vicryl platysma muscle running layer, followed by 4 Monocryl subcuticular stitch. Dermabond was applied.
The patient tolerated procedure well. He awoke moving all extremities to command with tongue in the midline.
[2024-06-28] MEDS: DILAUDID 0.5 MG IV (13:55)
[2024-06-28 14:00] LABS: Blood Urea Nitrogen 17 mg/dl (9-20); Calcium 8.4 mg/dl (8.4-10.2); Carbon Dioxide 27 mmol/L (22-30); Chloride 106 mmol/L (98-107); Estimated Creatinine Clearance 119 ml/min; Glucose 124 mg/dl (70-99); Potassium 4.4 mmol/L (3.5-5.1); Sodium 135 mmol/L (135-145); eGFR > 60.00
[2024-06-28] MEDS: NSS 1000 IV (14:06)
[2024-06-28 14:33] LABS: Hemoglobin 11.5 g/dL (13.0-18.0); Mean Corp Hgb Conc. 32.9 g/dL (33.0-37.0); Mean Corpuscular Hgb 28.1 pg (27.0-31.0); Mean Corpuscular Volume 85.6 fL (80.0-94.0); Red Blood Cell Count 4.09 10^6/uL (4.70-6.10); White Blood Cell Count 8.4 10^3/uL (4.8-10.8)
--- NOTE | 2024-06-28 15:00 | PTCARENOTE ---
Received pt from PACU via bed, monitored with 2 liters nasal cannula. Right FA#18g protective catheter with 0.9nss@80ml/hr, right radial arterial line to pressure bag, dressing CDI. Left FA#20g protective catheter flushed and patent. Handoff neuro
exam unremarkable. 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 Numbness and tingling of his feet also chronic. C/O right sided sciatica. Weak doppler signals to bilateral DP/PT
pulses. Poor capillary refill of his upper and lower extremities, limbs warm. He has a non-healing wound to his inner leg next to his knee that is WOLF and scabbed, measured, skin barrier applied, see worklist. Right groin old puncture site from
prior hospitalization healing also see worklist, WOLF. Known sacral wound in his gluteal cleft, documented in worklist. +BSX4. Fair appetite. Due to void. He was informed of the plan of care regarding Bedrest for tonight, hourly neuro exams until
tomorrow. He understands he needs to call for RN should he develop a severe headache. He verbalized his understanding. Call kwon within reach. Safe environment maintained.
--- NOTE | 2024-06-28 15:23 | CON.INTV ---
Consultation
Consultation Request
Date/Time Consultation Requested: 06/28/2024 - 1253
Date/Time Consultation Performed: 06/28/2024 - 1316
Requesting Provider: ANGE Barnhart
Performing Provider: Anup Guy MD
Reason for Consultation: s/p L-CEA
Medical History
-
Chief Complaint: Elective L-CEA
History of Present Illness:
63-year-old male former tobacco smoker (quit 05/16/2024 with approximately 45-vkre-plgn history) with a past medical history of CAD s/p CABG x 3, CVA (2021), history of TIA, hypertension/hypercholesterolemia, severe PAD, chronic LBP with peripheral
neuropathy, severe aortic stenosis s/p AVR, GERD and BPH who presents for left carotid endarterectomy. Patient known to vascular surgery with Dr. Dubois with last office visit on 06/23/2024. Patient has bilateral >70% internal carotid artery stenosis.
Patient had a prior CTA head/neck from August 2022 which also showed bilateral ICA stenosis however the patient's left-sided velocities have increased indicating worsening disease. Patient is symptomatic as well with amaurosis. Surgical
revascularization was discussed and he has agreed to left-sided carotid endarterectomy. Today he underwent left carotid endarterectomy with bovine pericardial patch angioplasty, and there were no immediate complications. He was transferred to the
ICU postoperatively for further care, and critical care services consulted for additional management/recommendations.
When I saw the patient he was resting in bed, lethargic but answering all my questions appropriately and saying he feels 'terrible.' She does not have chest pain, shortness of breath, MONTERO, abdominal pain, nausea, diarrhea, fevers or chills.
Currently on NS 0.9% at 80 cc/hr, with heart rate 70, BP via NIBP: 109/59, and BP via right radial A-line: 122/52.
PMHx: History of TIA, embolic CVA (2021), severe PAD, hypertension, hypercholesterolemia, chronic back pain with peripheral neuropathy, obesity, bilateral cataracts, aortic stenosis s/p AVR, postoperative A-fib (May 2024), bilateral internal
carotid artery stenosis, GERD, BPH, tobacco use disorder, multivessel CAD
PSHx: Bilateral tennis elbow repair, right ankle fracture repair, CABG x 3
Past Medical History
Past Medical History: Other (Above as per HPI)
Past Surgical History: Other (Above as per HPI)
Social History
Tobacco: Former Smoker (Quit 05/16/2024; previous 1.5-2 PPD x 40 years)
Alcohol: Occasional
Drug: Marijuana
Employment: Employed
Family History
Family History: CAD (Sister: History of CABG), Cancer (Father: Lung cancer (smoker); brother: History of cancer (unknown type - currently in remission)) and Other (Mother: Stroke)
Allergies / Home Medications
Allergies
Allergy/AdvReac Type Severity Reaction Status Date / Time
No Known Allergies Allergy Verified 06/26/24 10:00
Home Medications
�Medication �Instructions �Recorded �Confirmed �Last Taken �Type
ezetimibe 10 mg tablet (Zetia) 10 mg PO DAILY 03/23/22 06/28/24 06/27/24 08:00 History
rosuvastatin 40 mg tablet 40 mg PO DAILY High cholesterol #0 05/26/24 06/28/24 06/27/24 08:00 Rx
tabs
tamsulosin 0.4 mg capsule (Flomax) 0.4 mg PO DAILY Urinary issue #0 05/26/24 06/28/24 06/27/24 08:00 Rx
caps
amlodipine 5 mg tablet 5 mg PO DAILY radil graft patency 05/31/24 06/28/24 06/28/24 08:00 Rx
#60 tabs
apixaban 5 mg tablet (Eliquis) 5 mg PO BID Blood clot 05/31/24 06/28/24 06/25/24 20:00 Rx
prevention/tx #60 tabs
nicotine 21 mg/24 hr daily 21 mg transdermal DAILY Smoking 05/31/24 06/28/24 06/28/24 08:00 Rx
transdermal patch cessation #30 ea
pantoprazole 40 mg tablet,delayed 40 mg PO DAILY GI prophylaxis 05/31/24 06/28/24 06/27/24 08:00 Rx
release wwhile on Eliquis #90 tabs
aspirin 81 mg chewable tablet 81 mg PO DAILY Heart 06/01/24 06/28/24 06/28/24 08:00 Rx
disease/condition 30 days #30 tabs
metoprolol tartrate 50 mg tablet 75 mg (1.5 x 50 mg) PO BID Heart 06/01/24 06/28/24 06/27/24 20:00 Rx
disease/condition #60 tabs
pregabalin 200 mg capsule 200 mg PO HS nerve pain 06/26/24 06/28/24 06/27/24 20:00 History
Medical Cannabis 1 puff inhalation PRN PRN pain 06/28/24 06/28/24 06/27/24 19:00 History
acetaminophen 325 mg tablet 650 mg PO Q6H PRN pain 06/28/24 06/28/24 06/27/24 21:00 History
Review of Systems
-
History Source: Patient
All other systems: Negative unless noted
Vitals / Labs / Diagnostic Testing
Vital Signs
Temp Pulse Resp BP Pulse Ox
97.8 F 68 16 114/61 95
06/28/24 14:45 06/28/24 14:45 06/28/24 14:45 06/28/24 14:45 06/28/24 14:45
Lab Data
06/28/24 13:33
06/28/24 13:33
Laboratory Results
06/28/24 06/28/24
08: 13:33
PT 13.7 15.1 H
INR 1.05 1.18
APTT 31.4 30.5
Diagnostic Testing:
Physical Exam
-
HEENT: Normocephalic and Anicteric
Cardiovascular: S1/S2 and Peripheral Edema (negative)
Respiratory: Wheeze (negative), Rales (negative), Rhonchi (negative) and Non-Labored Respirations
GI: Soft, Non Distended, Non Tender and Normal Bowel Sounds
Neurology: Awake and Other (Lethargic but easily arousable and answering my questions appropriately)
Skin: Warm and Dry
General: Respiratory Distress (negative), Comfortable, Fever (negative), Chills (negative), Sweats (negative) and Good Appetite
Assessment
-
Assessment: 63-year-old male active tobacco smoker with a past medical history of CAD s/p CABG x 3, CVA (2021), history of TIA, hypertension/hypercholesterolemia, severe PAD, chronic LBP with peripheral neuropathy, severe aortic stenosis s/p AVR,
GERD and BPH who presents for left carotid endarterectomy. Patient known to vascular surgery with Dr. Dubois with last office visit on 06/23/2024. Patient has bilateral >70% carotid artery stenosis. Patient had a prior CTA head/neck from August 2022
which also showed bilateral carotid artery stenosis however the patient's left-sided velocities have increased indicating worsening disease. Patient is symptomatic as well with amaurosis. Surgical revascularization was discussed and he has agreed
to left-sided carotid endarterectomy. Today he underwent left carotid endarterectomy with bovine pericardial patch angioplasty, and there were no immediate complications. He was transferred to the ICU postoperatively for further care, and critical
care services consulted for additional management/recommendations.
Chronic conditions [employer]OR [employer]NER[employer]: History of TIA, embolic CVA (2021), severe PAD, hypertension, hypercholesterolemia, chronic back pain with peripheral neuropathy, obesity, bilateral cataracts, aortic stenosis s/p AVR, postoperative A-fib (May 2024),
bilateral internal carotid artery stenosis, GERD, BPH, tobacco use disorder, multivessel CAD
Impression:
#Symptomatic critical left carotid artery stenosis s/p left carotid endarterectomy with bovine pericardial patch angioplasty (POD #0)
#Anemia (baseline Hb 14-16g/dL)
#Multivessel CAD s/p CABG x 3 (OR date: 05/24/2024)
#Moderate�severe aortic stenosis s/p SAVR (OR date: 05/24/2024)
#History of AAA
#PAD
#History of embolic CVA
#Former heavy tobacco use disorder (quit last month, 05/16/2024, with 60�67-aiie-kjml history)
Plan:
Postoperative surgical intensive care unit monitoring
Supplemental oxygen as needed to maintain SpO2 >90-94%
prn nebulized bronchodilators
Incentive spirometry encouraged 10x per hour for at least 4 hrs a day
Aspiration precautions
Pain control
Neuro and vascular checks per protocol
Maintain MAP>65
Replete electrolytes with K>4, Mg>2
Maintain euglycemia with goal BG 140-180
Vascular surgery following-correspondence and operative notes reviewed
Transfuse blood products as needed to keep Hb>7g/dL, and plt>50k (given post-operative status)
DVT prophylaxis
Early nutrition
Early mobilization
Critical care statement: A total of 39 minutes of critical care time was provided for this patient today. This includes management of unstable vital signs, evaluation of the patient at bedside, reviewing the patient's pertinent medical records
including radiographs, microbiology, laboratory evaluations, and discussion with primary team, consultants, pharmacy, nutrition, physical therapy, case management, charge nurse, critical care nursing, and respiratory therapy.
[2024-06-28] MEDS: ROXICODONE 5 MG PO (15:27)
[2024-06-28] MEDS: FLOMAX 0.4 MG PO (15:27)
[2024-06-28 15:32] LABS: Magnesium 2.1 mg/dl (1.6-2.3); Phosphorus 4.3 mg/dl (2.5-4.5)
[2024-06-28 15:48] LABS: Platelet Count 162 10^3/uL (130-400)
[2024-06-28 15:49] LABS: Mean Platelet Volume 9.1 fL (7.4-10.4)
--- NOTE | 2024-06-28 17:38 | PTCARENOTE ---
No void post-op. Bladder scanned for 504ml's. Urinal propped, privacy provided. He is aware if he does not void we may need to drain his bladder with a catheter. He stated he will try to urinate onh is own although he does not feel the need to
urinate.
[2024-06-28] MEDS: TYLENOL 650 MG PO (17:57)
[2024-06-28] MEDS: HEPARIN 5000 UNITS SC ×2 (17:57→23:35)
--- NOTE | 2024-06-28 18:10 | PTCARENOTE ---
Chaya Brynchad ANGE notified via TT regarding pt inability to void, bladder scanned for 504ml's. Also aware his HR dips into the mid 50's and is ordered Lopressor later tonight with no parameters for administration.
[2024-06-28] MEDS: LOPRESSOR 75 MG PO (20:34)
[2024-06-28] MEDS: MORPHINE SULFATE 2 MG IV (20:38)
[2024-06-28] MEDS: LYRICA 200 MG PO (23:33)
[2024-06-29] VITALS (8 sets, daily range): BP systolic 125–148; BP diastolic 34–71; BMI 32.6
--- NOTE | 2024-06-29 | PTCARENOTE ---
a-line zeroed an transduced. pt given morphine before bed for pain at the surgical site. asleep for reassessment. left neck with surgical glue intact. using ice pack as needed.
[2024-06-29] MEDS: NSS 1000 IV (01:16)
[2024-06-29] MEDS: ROXICODONE 5 MG PO ×2 (05:05→09:57)
--- NOTE | 2024-06-29 05:20 | PTCARENOTE ---
labs drawn this morning. pt voiding in the urinal. c/o moderate pain in the left neck again. PRN given.
[2024-06-29 05:27] LABS: INR 1.15; PT 14.8 Sec (11.4-14.6)
[2024-06-29 05:28] LABS: APTT 31.1 Sec (23.4-35.0)
[2024-06-29 05:30] LABS: Hematocrit 32.7 % (39.0-52.0); Hemoglobin 11.2 g/dL (13.0-18.0); Mean Corp Hgb Conc. 34.3 g/dL (33.0-37.0); Mean Corpuscular Hgb 28.4 pg (27.0-31.0); Mean Corpuscular Volume 82.8 fL (80.0-94.0); Mean Platelet Volume 9.6 fL (7.4-10.4); Platelet Count 177 10^3/uL (130-400); Red Blood Cell Count 3.95 10^6/uL (4.70-6.10); Red Cell Dist. Width 13.8 % (11.5-14.5); White Blood Cell Count 6.8 10^3/uL (4.8-10.8)
[2024-06-29 05:39] LABS: Blood Urea Nitrogen 20 mg/dl (9-20); Calcium 8.5 mg/dl (8.4-10.2); Carbon Dioxide 23 mmol/L (22-30); Chloride 105 mmol/L (98-107); Estimated Creatinine Clearance > 125 ml/min; Glucose 147 mg/dl (70-99); Potassium 4.4 mmol/L (3.5-5.1); Sodium 137 mmol/L (135-145); eGFR > 60.00
[2024-06-29 06:26] LABS: Hepatitis C Antibody Negative (Negative)
--- NOTE | 2024-06-29 07:33 | W.PN.VS ---
Addendum entered and electronically signed by Aurelio Dubois MD 06/29/24 09:23:
Seen and examined with ANTWAN England. Agree with findings as noted below. Patient without specific complaints this morning, slight soreness at the incision site otherwise no complaints. Left neck incision is clean dry and intact. No hematoma.
Neurologically no focal deficits. Moves all extremities well. Tongue midline. Plan/as discussed and noted below.
Original Note:
Today's Communication / Plan
-
Seen and assessed with Dr. Dubois
Assessment/Plan
-
POD 1 left CEA
Plan:
-DC A-line
-DC IV fluids
-Out of bed/ambulate
-Advance diet
-Oral medications
-DC likely later this morning if progressing
Subjective Data
-
Date of Service: June 29, 2024
Patient did bedside exam with Dr. Dubois. Patient required straight cath once last evening, voiding on his own since. No complaints at this time
Objective Data
-
Vital Signs
Temp Pulse Resp BP Pulse Ox
98.1 F 49 17 125/63 96
06/29/24 05:16 06/29/24 05:15 06/29/24 05:15 06/29/24 00:00 06/29/24 05:22
Intake and Output
06/28/24 06/29/24 06/30/24
06:59 06:59 06:59
Intake Total 2049 / 2049
Output Total 1000 / 1000
Balance 1050 / 1050
Intake:
Oral fluids 600 / 600
IV fluids (Total) 1450 / 1450
Normosol 250 / 250
Nss 1,000 ml @ 80 mls/hr IV . 1200 / 1200
[id number] DARION Rx#:[id number]
Output:
Urine, Voided 400 / 400
Straight cath output 600 / 600
Lab Results
06/29/24 04:55
06/29/24 04:55
Calcium 8.5 mg/dl (8.4-10.2) 06/29/24 04:55
Phosphorus 4.3 mg/dl (2.5-4.5) 06/28/24 08:29
Magnesium 2.1 mg/dl (1.6-2.3) 06/28/24 08:29
Physical Exam
-
AAOx3
No tachypnea
No tachycardia
Abdomen soft
Neck site clean, dry, intact, mild swelling, mild ecchymosis, soft, no drainage
Moves all extremities equally
Tongue midline
[2024-06-29] MEDS: ZETIA 10 MG PO (07:40)
[2024-06-29] MEDS: FLOMAX 0.4 MG PO (07:40)
[2024-06-29] MEDS: CRESTOR 40 MG PO (07:40)
[2024-06-29] MEDS: NORVASC 5 MG PO (07:40)
[2024-06-29] MEDS: LOPRESSOR 75 MG PO (07:41)
[2024-06-29] MEDS: HEPARIN 5000 UNITS SC (07:42)
[2024-06-29] MEDS: LOW STRENGTH ASPIRIN 81 MG PO (07:42)
[2024-06-29] MEDS: PROTONIX 40 MG PO (07:42)
--- NOTE | 2024-06-29 08:00 | PTCARENOTE ---
Received patient from slot shift supervisor. Patient is AAOx3, on room air 98% on spot check. patient is sinus naima on monitor. vascular team at bedside. Ordered to discontinue A-line and get patient OOB. no complaints overnight. patient has left neck
incision approximated, ecchymotic, ice applied. Patient is urinating, discontinued IVF. Plan to D/C after lunch.
--- NOTE | 2024-06-29 08:03 | W.PN.CD ---
Today's Communication / Plan
-
Looks good POD 1 after L CEA
Impression / Plan
-
S/P CEA 8-21
-Neuro intact, no signficant L neck hemaotma
-Check ECG
-Possible home per vascular
Recent CABG
- no angina
-still has some sternal soreness 5 wks postCABG
AAA
-Vascular to follow
ECG now: SB 48, delayed R wave progression/cannot exclude old ant NC, ant J point elevation similar to May postop tracings
Physical Exam
Vital Signs/Labs
Vital Signs
Temp Pulse Resp BP Pulse Ox
98.3 F 56 17 125/63 96
06/29/24 07:46 06/29/24 07:41 06/29/24 05:15 06/29/24 07:41 06/29/24 05:22
06/28/24 06/29/24 06/30/24
06:59 06:59 06:59
Actual Weight 239 lb 15.218 oz 240 lb
06/29/24 04:55
06/29/24 04:55
PT 14.8 Sec (11.4-14.6) H 06/29/24 04:55
INR 1.15 06/29/24 04:55
APTT 31.1 Sec (23.4-35.0) 06/29/24 04:55
Magnesium 2.1 mg/dl (1.6-2.3) 06/28/24 08:29
Physical Exam
Constitutional: No acute distress and Comfortable
Cardiovascular: Rhythm & rate is regular, S1S2 is normal and Murmur/rub/gallop absent
Respiratory: Respiratory effort normal and Lungs clear to auscul.
GI: Soft and Non tender
Neuro/Psych: AO x 3 and Motor deficits absent
Data Reviewed
-
Date of Service: June 29, 2024
--- NOTE | 2024-06-29 08:18 | W.PN.INTV ---
Today's Communication / Plan
Recommendations
Up OOB as tolerated
Pain control
MAP>65
Replete K>4, Mg>2
I will arrange for outpatient follow-up with me given his significant tobacco smoking history for full PFTs and to discuss LDCT chest for lung cancer screening purposes.
Patient being prepared for discharge home today. Kiln Firer Helper/Pulmonary service will now sign off. Please reconsult if there are any additional questions/concerns, or if patient's respiratory status deteriorates.
Assessment
-
Assessment: 63-year-old male active tobacco smoker with a past medical history of CAD s/p CABG x 3, CVA (2021), history of TIA, hypertension/hypercholesterolemia, severe PAD, chronic LBP with peripheral neuropathy, severe aortic stenosis s/p AVR,
GERD and BPH who presents for left carotid endarterectomy. Patient known to vascular surgery with Dr. Dubois with last office visit on 06/23/2024. Patient has bilateral >70% carotid artery stenosis. Patient had a prior CTA head/neck from August 2022
which also showed bilateral carotid artery stenosis however the patient's left-sided velocities have increased indicating worsening disease. Patient is symptomatic as well with amaurosis. Surgical revascularization was discussed and he has agreed
to left-sided carotid endarterectomy. Today he underwent left carotid endarterectomy with bovine pericardial patch angioplasty, and there were no immediate complications. He was transferred to the ICU postoperatively for further care, and critical
care services consulted for additional management/recommendations.
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
bilateral internal carotid artery stenosis, GERD, BPH, tobacco use disorder, multivessel CAD
Impression:
#Symptomatic critical left carotid artery stenosis s/p left carotid endarterectomy with bovine pericardial patch angioplasty (POD #1)
#Anemia (baseline Hb 14-16g/dL)
#Multivessel CAD s/p CABG x 3 (OR date: 05/24/2024)
#Moderate�severe aortic stenosis s/p SAVR (OR date: 05/24/2024)
#History of AAA
#PAD
#History of embolic CVA on Eliquis
#Former heavy tobacco use disorder (quit last month, 05/16/2024, with 60�69-yees-gnsb history)
Plan:
Postoperative surgical intensive care unit monitoring
Patient on room air breathing comfortably; maintain SpO2 >90-94%
prn nebulized bronchodilators
Incentive spirometry encouraged 10x per hour for at least 4 hrs a day
Aspiration precautions
Pain control
Neuro and vascular checks per protocol
Maintain MAP>65
Replete electrolytes with K>4, Mg>2
Maintain euglycemia with goal BG 140-180
Vascular surgery following-correspondence and operative notes reviewed
Transfuse blood products as needed to keep Hb>7g/dL, and plt>50k (given post-operative status)
DVT prophylaxis - resume Eliquis per vascular surgery
Early nutrition
Early mobilization
Patient being prepared for discharge home today. Kiln Firer Helper/Pulmonary service will now sign off. Thank you for allowing us to be involved in the care of this patient. Please reconsult if there are any additional questions/concerns, or if
patient's respiratory status deteriorates.
Total time spent today was 40 minutes for this encounter. Time includes reviewing laboratory test/imaging results, reviewing pertinent medical records, obtaining and reviewing medical history, performing an appropriate exam, ordering medications,
tests and procedures. Time also includes documentation of this encounter, coordinating patient care and communicating with other healthcare professionals. Total time does not include separately billed tests performed on this date of service.
Subjective Dataa
Subjective Data
Date of Service:
Date of Service: June 29, 2024
Chief Complaint: Kiln Firer Helper Follow Up
Subjective:
He is doing well, has some mild left-sided neck pain. Denies MONTERO, SOB, CP, abdominal pain, nausea, fevers or chills. Seen and evaluated this am - BP 137/65, heart rate 53, saturating 95% on room air. No acute events reported overnight. Afebrile
overnight.
Review of Systems
General: Other (Negative unless mentioned above)
Objective Data
Data Reviewed
Vital Signs / I&O / Oxygen:
Vital Signs
Temp Pulse Resp BP Pulse Ox
98.3 F 53 17 146/71 95
06/29/24 07:46 06/29/24 09:00 06/29/24 09:00 06/29/24 09:00 06/29/24 08:00
Intake and Output
06/28/24 06/29/24 06/30/24
06:59 06:59 06:59
Intake Total 2050 / 2130 530 / 530
Output Total 1000 / 1000
Balance 1050 / 1130 530 / 530
SaO2 95
Nasal Cannula flow liters per 0
minute
Physical Exam
General: Respiratory Distress (negative) and Comfortable
HEENT: Normocephalic and Anicteric
Cardiovascular: S1-S2 and Peripheral Edema (negative)
Respiratory: Wheeze (negative), Crackles (negative), Rhonchi (negative) and Non-Labored Respirations
GI: Soft, Non Distended, Non Tender and Normal Bowel Sounds
Neurology: AO x 3 and Tremors (negative)
Skin: Warm, Dry, Cyanosis (negative) and Jaundice (negative)
Labs/Micro/Reports
Lab Data
06/29/24 04:55
06/29/24 04:55
Laboratory Results
06/28/24 06/29/24
13:33 04:55
PT 15.1 H 14.8 H
INR 1.18 1.15
APTT 30.5 31.1
[2024-06-29] MEDS: TYLENOL 650 MG PO (09:57)
--- NOTE | 2024-06-29 10:34 | CM ---
Patient seen at bedside in ICU. Patient states that he lives alone in a one story home. Patient has no DME at home and his PCP is Dr. Durham, Patient uses the [facility] in [place]. Patient stated that his daughter will provide discharge home today.
CM will continue to follow for discharge planning needs.
Plan; home with no needs anticipated at this time
--- NOTE | 2024-06-29 11:14 | PTCARENOTE ---
Patient has ambulated in room, in chair OOB, ice pack applied. pain is at 6-7 on left neck. medicated with tylenol and oxycodone.
--- NOTE | 2024-06-29 12:25 | W.DS.TRANS ---
DC Summary - [employer]ra[employer]inder
-
Discharge Instructions:
Sleep Apnea Risk Intermediate
Discharge Diagnosis/Procedures Left carotid endarterectomy
Diet As tolerated
Activity No strenuous activity
Driving Restrictions Not until seen by your Dr
Bathing Restrictions OK to Shower
Instructions:
Stand-Alone Forms: DC Instr - Vascular OR
Changes to Home Medications: No
Discharge Medications:
DC Medications w/original date entered in [facility] [employer]
ezetimibe 10 mg tablet (Zetia) 10 mg PO DAILY High Cholesterol 03/23/22
rosuvastatin 40 mg tablet 40 mg PO DAILY High cholesterol #0 tabs 05/26/24
tamsulosin 0.4 mg capsule (Flomax) 0.4 mg PO DAILY Urinary issue #0 caps 05/26/24
amlodipine 5 mg tablet 5 mg PO DAILY radil graft patency #60 tabs 05/31/24
apixaban 5 mg tablet (Eliquis) 5 mg PO BID Blood clot prevention/tx #60 tabs 05/31/24
nicotine 21 mg/24 hr daily transdermal patch 21 mg transdermal DAILY Smoking cessation #30 ea 05/31/24
pantoprazole 40 mg tablet,delayed release 40 mg PO DAILY GI prophylaxis wwhile on Eliquis #90 tabs 05/31/24
aspirin 81 mg chewable tablet 81 mg PO DAILY Heart disease/condition 30 days #30 tabs 06/01/24
metoprolol tartrate 50 mg tablet 75 mg (1.5 x 50 mg) PO BID Heart disease/condition #60 tabs 06/01/24
pregabalin 200 mg capsule 200 mg PO HS nerve pain 06/26/24
Medical Cannabis 1 puff inhalation PRN PRN pain 06/28/24
acetaminophen 325 mg tablet 650 mg PO Q6H PRN pain 06/28/24
Home Medication Changes
Pending Results: No
--- NOTE | 2024-06-29 12:49 | W.[place]-PDMP ---
[place]-PD[place]
-
Checked the [place]- Prescription Drug Monitoring Program website, no red flags identified; safe to proceed with prescription.
--- NOTE | 2024-06-29 13:39 | PTCARENOTE ---
escorted patient out via wheelchair
== END 2024-06-29 13:30 | disposition home or self-care (01) | DRG 39 ==
LOC: ICU 08:17
PROVIDERS: Nurse Practitioner Acute Care; ADMITTING PHYSICIAN Surgery Vascular Surgery; CONSULT PHYSICIAN Internal Medicine Critical Care Medicine; FAMILY PHYSICIAN Family Medicine
PROC: 03CJ0ZZ Extirpation of Matter from Left Common Carotid Artery, Open Approach (ICD-10-PCS; 2024-06-28)
PROC: 03UJ0KZ Supplement Left Common Carotid Artery with Nonautologous Tissue Substitute, Open Approach (ICD-10-PCS; 2024-06-28)
DX: I65.23 Occlusion and stenosis of bilateral carotid arteries (principal); I10 Essential (primary) hypertension; E78.00 Pure hypercholesterolemia, unspecified; I71.43 Infrarenal abdominal aortic aneurysm, without rupture; I73.9 Peripheral vascular disease, unspecified; G62.9 Polyneuropathy, unspecified; G89.29 Other chronic pain; M54.50 Low back pain, unspecified; D64.9 Anemia, unspecified; I25.10 Atherosclerotic heart disease of native coronary artery without angina pectoris; N40.0 Benign prostatic hyperplasia without lower urinary tract symptoms; E66.9 Obesity, unspecified; Z68.32 Body mass index [BMI] 32.0-32.9, adult; Z87.891 Personal history of nicotine dependence; Z95.2 Presence of prosthetic heart valve; Z95.1 Presence of aortocoronary bypass graft; Z86.79 Personal history of other diseases of the circulatory system; Z86.73 Personal history of transient ischemic attack (TIA), and cerebral infarction without residual deficits; Z82.49 Family history of ischemic heart disease and other diseases of the circulatory system; Z82.3 Family history of stroke; Z79.01 Long term (current) use of anticoagulants; Z79.82 Long term (current) use of aspirin
CPT/HCPCS: 88304; 88311; 35301; 71045; 80048; 83735; 84100; 85027; 85610; 85730; 86803; 86850; 86900; 86901; 93005; 95938; 95941; 95955; P9045

== ENCOUNTER → 2024-07-06 09:18 | Outpatient (REF) | payer OTHER, SELFPAY | LOC: WOUND 09:18 | PROVIDERS: ATTENDING PHYSICIAN Surgery | DX: L89.153 Pressure ulcer of sacral region, stage 3 (principal); I25.110 Atherosclerotic heart disease of native coronary artery with unstable angina pectoris; I48.91 Unspecified atrial fibrillation; I65.23 Occlusion and stenosis of bilateral carotid arteries; I10 Essential (primary) hypertension; Z86.73 Personal history of transient ischemic attack (TIA), and cerebral infarction without residual deficits; Z79.01 Long term (current) use of anticoagulants; F17.200 Nicotine dependence, unspecified, uncomplicated | CPT/HCPCS: 99213 ==

== ENCOUNTER 2024-07-18 16:21 | Outpatient (RCR) | payer OTHER, SELFPAY | END 2024-07-18 23:59 | disposition home or self-care (01) | LOC: CRHB 16:21 | PROVIDERS: ATTENDING PHYSICIAN Internal Medicine | DX: I25.110 Atherosclerotic heart disease of native coronary artery with unstable angina pectoris (principal); Z95.1 Presence of aortocoronary bypass graft; Z95.2 Presence of prosthetic heart valve | CPT/HCPCS: 93798 ==

== ENCOUNTER → 2024-08-03 08:53 | Outpatient (REF) | payer OTHER, SELFPAY | LOC: WOUND 08:53 | PROVIDERS: ATTENDING PHYSICIAN Surgery; FAMILY PHYSICIAN Family Medicine | DX: L89.153 Pressure ulcer of sacral region, stage 3 (principal); I25.110 Atherosclerotic heart disease of native coronary artery with unstable angina pectoris; I48.91 Unspecified atrial fibrillation; Z79.01 Long term (current) use of anticoagulants; Z86.73 Personal history of transient ischemic attack (TIA), and cerebral infarction without residual deficits; I65.23 Occlusion and stenosis of bilateral carotid arteries; I10 Essential (primary) hypertension; F17.200 Nicotine dependence, unspecified, uncomplicated | CPT/HCPCS: 99212 ==

== ENCOUNTER → 2024-08-04 10:28 | Outpatient (REF) | payer OTHER, SELFPAY | LOC: DHVS 10:28 | PROVIDERS: ATTENDING PHYSICIAN Registered Nurse; FAMILY PHYSICIAN Family Medicine | DX: I65.23 Occlusion and stenosis of bilateral carotid arteries (principal) | CPT/HCPCS: 93880 ==

== ENCOUNTER → 2024-08-08 15:26 | Outpatient (REF) | payer OTHER, SELFPAY | LOC: EMG 15:26 | PROVIDERS: ATTENDING PHYSICIAN Family Medicine | DX: G56.21 Lesion of ulnar nerve, right upper limb (principal) | CPT/HCPCS: 95886; 95911 ==

== ENCOUNTER → 2025-01-11 08:01 | Outpatient (REF) | payer OTHER, SELFPAY | LOC: RAD 08:01 | PROVIDERS: ATTENDING PHYSICIAN Internal Medicine Cardiovascular Disease; FAMILY PHYSICIAN Family Medicine; REFERRING PHYSICIAN Surgery Vascular Surgery | DX: I71.40 Abdominal aortic aneurysm, without rupture, unspecified (principal) | CPT/HCPCS: 76770; 93880 ==

== ENCOUNTER → 2025-01-25 07:04 | Outpatient (REF) | payer OTHER, SELFPAY | LOC: RAD 07:04 | PROVIDERS: ATTENDING PHYSICIAN Surgery Vascular Surgery; FAMILY PHYSICIAN Family Medicine | DX: I65.23 Occlusion and stenosis of bilateral carotid arteries (principal) | CPT/HCPCS: 70496; 70498; Q9967 ==

== ENCOUNTER → 2025-02-07 06:56 | Outpatient (REF) | payer OTHER, SELFPAY | LOC: RAD 06:56 | PROVIDERS: ATTENDING PHYSICIAN Surgery Vascular Surgery; FAMILY PHYSICIAN Family Medicine | DX: I73.9 Peripheral vascular disease, unspecified (principal); I65.23 Occlusion and stenosis of bilateral carotid arteries | CPT/HCPCS: 93922; 93925 ==

== ENCOUNTER 2025-07-27 10:17 | Day surgery (SDC) | payer OTHER, SELFPAY ==
[2025-07-23 10:09] VITALS: BMI 38.4
[2025-07-27 10:46] VITALS: BP 136/61
[2025-07-27] MEDS: NSS 500 IV (10:56)
[2025-07-27 14:13] VITALS: BP 130/73
--- NOTE | 2025-07-27 14:15 | ITS.CL.IMPLP ---
Frame Coverer - Implant Loop
Implant Loop
Procedure Report:
Date of Procedure: July 27, 2025.
Procedure: Insertable Loop Recorder Explant.
Indication: Loop at the end of service.
Performing physician: Jovan Galeas MD, [facility].
Explant: HipChat; [employer]; Model# [id number]; Serial# [id number], implanted on 03/23/2022
Moderate Sedation: 5 minutes of moderate sedation was utilized. An independent medical staff specialist was present to assist with and help manage the patient's level of consciousness and physiologic status.
Technique: A time out was performed per protocol. The patient was prepped and draped in the usual fashion. Anesthesia was administered by the anesthesia staff. Local anesthetic was applied to the left prepectoral subcutaneous tissue. An incision
was made over the superior aspect of the device. Dissection was carried to the capsule. The capsule was entered. The old device was explanted. The pocket appeared normal. Hemostasis was excellent. The pocket was irrigated saline. The incision was
closed with 4-0 Monocryl suture. The skin was closed with steri-strips. The estimated blood loss was less than 0.5 mL. There were no complications. No fluoroscopy was used.
Conclusion: Uncomplicated insertable loop explantation.
Recommendation: Routine incision care.
cc: Fredo Durham MD and Kelsey Jennings MD.
[2025-07-27 14:28] VITALS: BP 135/80
[2025-07-27 14:43] VITALS: BP 123/68
== END 2025-07-27 15:00 | disposition home or self-care (01) ==
LOC: CATH 10:17
PROVIDERS: ATTENDING PHYSICIAN Internal Medicine Cardiovascular Disease; FAMILY PHYSICIAN Family Medicine; OTHER PHYSICIAN Internal Medicine Cardiovascular Disease
DX: Z09 Encounter for follow-up examination after completed treatment for conditions other than malignant neoplasm (principal); Z86.73 Personal history of transient ischemic attack (TIA), and cerebral infarction without residual deficits; I48.91 Unspecified atrial fibrillation; R00.0 Tachycardia, unspecified; I10 Essential (primary) hypertension; E78.5 Hyperlipidemia, unspecified; I25.10 Atherosclerotic heart disease of native coronary artery without angina pectoris; Z95.2 Presence of prosthetic heart valve; I35.0 Nonrheumatic aortic (valve) stenosis; Z95.1 Presence of aortocoronary bypass graft; I65.23 Occlusion and stenosis of bilateral carotid arteries; I70.219 Atherosclerosis of native arteries of extremities with intermittent claudication, unspecified extremity; I71.43 Infrarenal abdominal aortic aneurysm, without rupture; F17.210 Nicotine dependence, cigarettes, uncomplicated; F32.A Depression, unspecified; F41.9 Anxiety disorder, unspecified; E66.9 Obesity, unspecified; Z68.38 Body mass index [BMI] 38.0-38.9, adult; M19.90 Unspecified osteoarthritis, unspecified site; N40.1 Benign prostatic hyperplasia with lower urinary tract symptoms; Z79.01 Long term (current) use of anticoagulants; Z79.82 Long term (current) use of aspirin; Z79.899 Other long term (current) drug therapy; Z85.828 Personal history of other malignant neoplasm of skin
CPT/HCPCS: 33286; 93005